=== PATIENT | male | born 1985 | race Caucasian/White ===

== ENCOUNTER 2021-07-12 10:41 | Emergency (ER) | payer OTHER, SELFPAY ==
--- NOTE | ~2021-07-12 | US_ITS ---
EXAMINATION: US SCROTUM CLINICAL INFORMATION: Scrotal/testicular pain. COMPARISON: None TECHNIQUE: A sonogram of the scrotum was performed assessing flannery-scale appearance and color Doppler flow. Spectral Doppler analysis of the arterial and venous flow were performed in the testes bilaterally. FINDINGS: RIGHT: Right testicle measures 4.0 x 2.8 x 2.6 cm, volume 14.8 mL. No focal testicular parenchymal lesions are visualized. Spectral Doppler analysis of the arterial and venous flow is normal in the right testis. Right epididymal head is not clearly visualized. No extratesticular mass. Normal epididymal appendix. There is a large loculated hydrocele right hemiscrotum measuring 3.7 x 7.3 x 7.5 cm (volume 106 mL). LEFT: Left testicle measures 4.8 x 2.6 x 3.4 cm, volume 21.6 mL. No focal testicular parenchymal lesions are visualized. Spectral Doppler analysis of the arterial and venous flow is normal in the left testis. Left epididymal head is normal in size and color flow. No left hydrocele or varicocele is seen. US/US scrotum IMPRESSION: 1. Large right loculated hydrocele, 3.7 x 7.3 x 7.5 cm. 2. No intratesticular mass. No torsion.
--- NOTE | ~2021-07-12 | US_ITS ---
EXAMINATION: US SCROTUM CLINICAL INFORMATION: Scrotal/testicular pain. COMPARISON: None TECHNIQUE: A sonogram of the scrotum was performed assessing flannery-scale appearance and color Doppler flow. Spectral Doppler analysis of the arterial and venous flow were performed in the testes bilaterally. FINDINGS: RIGHT: Right testicle measures 4.0 x 2.8 x 2.6 cm, volume 14.8 mL. No focal testicular parenchymal lesions are visualized. Spectral Doppler analysis of the arterial and venous flow is normal in the right testis. Right epididymal head is not clearly visualized. No extratesticular mass. Normal epididymal appendix. There is a large loculated hydrocele right hemiscrotum measuring 3.7 x 7.3 x 7.5 cm (volume 106 mL). LEFT: Left testicle measures 4.8 x 2.6 x 3.4 cm, volume 21.6 mL. No focal testicular parenchymal lesions are visualized. Spectral Doppler analysis of the arterial and venous flow is normal in the left testis. Left epididymal head is normal in size and color flow. No left hydrocele or varicocele is seen. US/US scrotum doppler IMPRESSION: 1. Large right loculated hydrocele, 3.7 x 7.3 x 7.5 cm. 2. No intratesticular mass. No torsion.
[2021-07-12 10:49] VITALS: BP 122/79; PULSE 83; RESP 18; TEMP 36.9; O2SAT 99; BMI 22.5
--- NOTE | 2021-07-12 12:44 | ED_ITS ---
HPI - Male Genitourinary General Chief complaint: Urogenital-Male Stated complaint: testiclur pain Time Seen by Provider: 07/12/21 11:03 Source: patient and family Mode of arrival: ambulatory Limitations: no limitations History of Present Illness HPI Narrative: 36-year-old male who had a vasectomy approximately 5 years ago who unfortunately had a complication where he developed a hematoma to his right testicle after the procedure which he has had for the past 5 years although it has been improving although in the past few months it is getting worse out of no where per the patient and it is now causing him discomfort and pain with sexual intercourse. He denies any other symptoms complaints or concerns at this time. He denies any thoughts of STDs. MD Complaint: testicle pain and testicle swelling Onset (ago): year(s) (For the past 5 years worse in the past few months) Duration: constant and progressively worsening Location: right testicle Severity: moderate Severity scale (1-10): 5 Quality: aching Relieving factors: none Exacerbating factors: sexual intercourse Context: recent surgery (Patient reports he had a vasectomy approximately 5 years ago and they explained to him that he developed a hematoma after the procedure and he reports the hematoma was improving although within the past few months it is worsening) Associated symptoms: Reports denies other symptoms Related Data Sexually active: Yes Home Medications Medication Instructions Recorded Confirmed No Known Home Meds 06/06/20 04/11/21 Allergies Allergy/AdvReac Type Severity Reaction Status Date / Time No Known Allergies Allergy Verified 04/11/21 15:52 [No Known Allergies*] Review of Systems Review of Systems: Constitutional : No Weight loss, No Fever, No Chills, No Night Sweats, No Fatigue, NoMalaise ENT/Mouth: No ear pain, No sore throat, No Difficulty swallowing Cardiovascular : No Chest Pain, No SOB, No Dyspnea on Exertion, No Orthopnea, N oEdema, No Palpitations Respiratory : No Cough, No Sputum, No Wheezing, No Dyspnea Gastrointestinal : No Nausea, No Vomiting, No Diarrhea, + abdominal Pain, No Hematochezia, No Melena Genitourinary : + testicular pain/swelling, No irregular bleeding, No Dysuria, No Urinary Frequency, No Hematuria,No Urinary Incontinence, No Urgency, No Flank Pain Musculoskeletal : No joint pain, No Myalgias, No Joint Swelling Skin : No Skin Lesions, No rash Neuro : No Weakness, No Numbness, No Paresthesias, No Loss of Consciousness, NoDizziness, No Headache Psych : No Social Issues, Heme/Lymph: No Bruising, No Bleeding,No Lymphadenopathy Endocrine : No Polyuria, No Polydipsia, No Temperature Intolerance PATIENT DENIES ANY THOUGHTS OF STDS Yes all other systems are reviewed and are negative [facility] Past Medical History Attestation statement: The following information was validated with the patient. Surgical History H/O nasal septoplasty H/O vasectomy H/O wisdom tooth extraction Family History Family History Father Lung cancer HTN (hypertension) Mother No problems noted. Social History Social History Housing: Apartment Patient Tobacco Use Status: Former Tobacco user Years Smoked: 15 years ago e-Cigarette/Vaping Use: Never Used Second Hand Smoke Exposure: No Advance Directives: No Advance Directives Information Provided: No service: Yes Current occupational status: employed Current occupation: [employer] Current occupational exposures/hazards: Yes Physical Exam Vital Signs: Vital Signs: Last Vital Signs Temp 97.4 F 07/12/21 13:07 Pulse 60 07/12/21 13:07 Resp 16 07/12/21 13:07 BP 105/63 07/12/21 13:07 Pulse Ox 100 07/12/21 13:07 BMI result Body Mass Index 22.5 vital signs have been reviewed as normal and appeared to be correct. Blood pressure normal. Heart rate normal. Respiration rate normal. Temperature normal. Oxygen saturation normal. Appearance: Alert. Oriented X3. No acute distress. Head: Normal external exam. Normocephalic. Atraumatic. Eyes: PERRLA. EOMI. Conjunctiva and sclera normal. Eyelids normal. ENT: Pharynx normal. Uvula midline. Moist mucous membranes. Neck: Normal inspection. Neck supple. FROM. No adenopathy. No meningeal signs. CVS: Normal heart rate and rhythm. Heart sound normal. No murmurs noted. Pulses normal throughout. Respiratory: No respiratory distress. Painless inspiration. Breath sounds normal. No wheezes/rales/rhonchi noted. Chest nontender. No accessory muscle usage noted or decreased air movement noted. Abdomen: Soft and nontender. Bowel sounds normal in all 4 quadrants. No distention noted. No organomegaly noted. No visible injury noted. : Chaperoned by MAKENNA Kasper. Patient noted to have tenderness with patient and soft tissue swelling/enlargement of the right testicle. The left testicle is within normal limits. The rest of the external exam is within normal limits. No additional masses/lumps/ecchymosis/edema/erythema/lacerations/lesions/vesicles/induration or tenderness noted. No hernia noted. No inguinal lymphadenopathy noted. Normal penis free of discharge. Both testicles are descended bilaterally. Although right testicle enlarged. Right testicle is also tender. Left testicle is within normal limits and no tenderness. No varicocele. Epididymides normal. No blue dot sign. Back: No CVA tenderness. Full range of motion noted. Skin: Skin warm and dry. Normal skin color. Normal skin turgor. No rashes/lesions/lacerations noted. Extremities: Extremities exhibit normal range of motion. Extremities nontender. Neuro: Oriented X 3. No motor deficit. No sensory deficit. Reflexes normal. Course Course Course Narrative: 11am - 36-year-old male who had a vasectomy approximately 5 years ago who unfortunately had a complication where he developed a hematoma to his right testicle after the procedure which he has had for the past 5 years although it has been improving although in the past few months it is getting worse out of no where per the patient and it is now causing him discomfort and pain with sexual intercourse. He denies any other symptoms complaints or concerns at this time. He denies any thoughts of STDs. Will obtain an ultrasound of testicles and re-evaluate. Reevaluation(s) Reevaluation #1: Patient noted to have large right loculated hydrocele 3 x 7 x 7.3 x 7.5 cm I consulted with Dr. Messina the urologist and he reported that the patient can follow-up with him as an outpatient no intervention indicated at this time. Patient understands agrees with this plan. Time: 13:21 [facility] - Male Genitourinary Medical Records Attestation: I reviewed the patient's medical records. Imaging Data Scrotal ultrasound: Attestation: I personally reviewed and interpreted this imaging study as follows: Radiologist's impression: [address] [address] Ultrasound Report Signed Patient: Maverick Talely MR#: [id number] : 1985 Acct:[id number] Age/Sex: 36 / M ADM Date: 07/12/21 Loc: .ED Attending Dr: Ordering Physician: Melanie Trevizo Date of Service: 07/12/21 Procedure(s): US scrotum Accession Number(s): [id number] cc: Melanie Trevizo~ EXAMINATION: US SCROTUM CLINICAL INFORMATION: Scrotal/testicular pain. COMPARISON: None TECHNIQUE: A sonogram of the scrotum was performed assessing flannery-scale appearance and color Doppler flow. Spectral Doppler analysis of the arterial and venous flow were performed in the testes bilaterally. FINDINGS: RIGHT: Right testicle measures 4.0 x 2.8 x 2.6 cm, volume 14.8 mL. No focal testicular parenchymal lesions are visualized. Spectral Doppler analysis of the arterial and venous flow is normal in the right testis. Right epididymal head is not clearly visualized. No extratesticular mass. Normal epididymal appendix. There is a large loculated hydrocele right hemiscrotum measuring 3.7 x 7.3 x 7.5 cm (volume 106 mL). LEFT: Left testicle measures 4.8 x 2.6 x 3.4 cm, volume 21.6 mL. No focal testicular parenchymal lesions are visualized. Spectral Doppler analysis of the arterial and venous flow is normal in the left testis. Left epididymal head is normal in size and color flow. No left hydrocele or varicocele is seen. US/US scrotum IMPRESSION: 1. Large right loculated hydrocele, 3.7 x 7.3 x 7.5 cm. 2. No intratesticular mass. No torsion. Dictated By: Fernando Woods MD Signed By: <Electronically s Discharge Plan Discharge Clinical Impression: Hydrocele, right Patient Disposition: Home, Self-Care Instructions: Hydrocele (ED) Additional Instructions: [address] [address] Ultrasound Report Signed Patient: Maverick Talley MR#: [id number] : 1985 Acct:[id number] Age/Sex: 36 / M ADM Date: 07/12/21 Loc: HO.ED Attending Dr: Ordering Physician: Melanie Trevizo Date of Service: 07/12/21 Procedure(s): US scrotum Accession Number(s): [id number] cc: Melanie Trevizo~ EXAMINATION: US SCROTUM CLINICAL INFORMATION: Scrotal/testicular pain. COMPARISON: None TECHNIQUE: A sonogram of the scrotum was performed assessing flannery-scale appearance and color Doppler flow. Spectral Doppler analysis of the arterial and venous flow were performed in the testes bilaterally. FINDINGS: RIGHT: Right testicle measures 4.0 x 2.8 x 2.6 cm, volume 14.8 mL. No focal testicular parenchymal lesions are visualized. Spectral Doppler analysis of the arterial and venous flow is normal in the right testis. Right epididymal head is not clearly visualized. No extratesticular mass. Normal epididymal appendix. There is a large loculated hydrocele right hemiscrotum measuring 3.7 x 7.3 x 7.5 cm (volume 106 mL). LEFT: Left testicle measures 4.8 x 2.6 x 3.4 cm, volume 21.6 mL. No focal testicular parenchymal lesions are visualized. Spectral Doppler analysis of the arterial and venous flow is normal in the left testis. Left epididymal head is normal in size and color flow. No left hydrocele or varicocele is seen. US/US scrotum IMPRESSION: 1. Large right loculated hydrocele, 3.7 x 7.3 x 7.5 cm. 2. No intratesticular mass. No torsion. Dictated By: Fernando Woods MD Signed By: <Electronically s Prescriptions: No Action No Known Home Meds RF: 0 Referrals: David Messina MD [Physician] - 2 days (Call today to make a follow-up appointment within the next 1-2 weeks) Darrell Gregorio, [employer] [Primary Care Provider] - 2 days Print Language: Sammarinese
[2021-07-12 13:07] VITALS: BP 105/63; PULSE 60; RESP 16; TEMP 36.3; O2SAT 100
== END 2021-07-12 13:46 | disposition home or self-care (01) ==
PROVIDERS: Emergency Provider Emergency Medicine; PCP Nurse Practitioner Family
DX: N43.3 Hydrocele, unspecified (principal); N50.811 Right testicular pain
CPT/HCPCS: 76870; 93975; 99284

== ENCOUNTER 2021-08-01 11:15 | Outpatient (REF) | payer OTHER, SELFPAY ==
[2021-08-01 15:02] LABS: Influenza A PCR NEGATIVE (Negative); Influenza B PCR NEGATIVE (Negative); Resp Syncy Virus RNA Qual PCR NEGATIVE (Negative); SARS COV2 PCR INHOUSE NEGATIVE (Negative)
== END 2021-08-01 11:16 | disposition home or self-care (01) ==
LOC: HO.LAB 11:15
PROVIDERS: Visit Provider Hospitalist
DX: Z20.822 Contact with and (suspected) exposure to COVID-19 (principal); J06.9 Acute upper respiratory infection, unspecified
CPT/HCPCS: 0241U

== ENCOUNTER → 2022-10-21 08:25 | Outpatient (BNVA) | payer OTHER, SELFPAY | PROVIDERS: PCP Nurse Practitioner Family; Visit Provider Nurse Practitioner Family | DX: N43.3 Hydrocele, unspecified (principal) | CPT/HCPCS: 99202 ==

== ENCOUNTER 2022-12-02 11:44 | Day surgery (SDC) | payer OTHER, SELFPAY ==
--- NOTE | 2022-11-29 10:05 | HO.ANESPROP2 ---
Documented by User: Magi Peres NP 11/29/22 10:05 HPI - Anesthesia Eval Consult details Narrative: 37yo M for Right Hydrocele Repair [facility] Active Problems Active Problems: All Active Problems (Updated 06/18/22 @ 09:40 by Darrell Gregorio, [facility]) Hydrocele (Acute) Exposure to COVID-19 virus (Acute) URI (upper respiratory infection) (Acute) Deviated nasal septum (Acute) Vasectomy evaluation (Acute) Scrotal swelling (Acute) Tender scrotum (Acute) Past Medical History Medical History (Updated 12/02/22 @ 12:19 by Nicole Ramirez) Gluten intolerance Family History Family History Father Lung cancer HTN (hypertension) Mother No problems noted. Surgical History Surgical History (Updated 12/02/22 @ 12:13 by Nicole Ramirez) H/O nasal septoplasty H/O vasectomy H/O wisdom tooth extraction History of nasal surgery History of surgery on lower extremity Social History Social History Housing: Apartment Patient Tobacco Use Status: Former Tobacco user Quit Date: 2015 Tobacco use type: Cigarette Years Smoked: 10 e-Cigarette/Vaping Use: Never Used Second Hand Smoke Exposure: No service: Yes Current occupational status: employed Current occupation: [employer] Current occupational exposures/hazards: Yes Cognitive needs: No Hearing needs: No Vision needs: No Meds Allergies Allergy/AdvReac Type Severity Reaction Status Date / Time No Known Allergies Allergy Verified 12/02/22 12:09 [No Known Allergies*] Exam Exam Date and Time: November 29, 2022 1005 Assessment and Plan Assessment Anesthesia Assessment: Chart Reviewed Documented by User: Raghu Arredondo MD 12/02/22 18:18 [facility] Past Medical History Medical History (Updated 12/02/22 @ 12:19 by Nicole Ramirez) Gluten intolerance Functional capacity: independent ambulation Family History Family History Father Lung cancer HTN (hypertension) Mother No problems noted. Family history of problems with anesthesia: No Surgical History Surgical History (Updated 12/02/22 @ 12:13 by Nicole Ramirez) H/O nasal septoplasty H/O vasectomy H/O wisdom tooth extraction History of nasal surgery History of surgery on lower extremity History of Problems with Anesthesia: No Social History Social History Housing: Apartment Patient Tobacco Use Status: Former Tobacco user Quit Date: 2015 Tobacco use type: Cigarette Years Smoked: 10 e-Cigarette/Vaping Use: Never Used Second Hand Smoke Exposure: No service: Yes Current occupational status: employed Current occupation: [employer] Current occupational exposures/hazards: Yes Cognitive needs: No Hearing needs: No Vision needs: No Meds Allergies Allergy/AdvReac Type Severity Reaction Status Date / Time No Known Allergies Allergy Verified 12/02/22 12:09 [No Known Allergies*] Exam Airway Mallampati Class: III TM Dist: >3cm Neck ROM: Full Loose/Missing/Broken Teeth: Yes (fillings ) Assessment and Plan Assessment Anesthesia Assessment: Anesthesia Plan Discussed Final Anesthetic Review Family History of Problems with Anesthesia: No History of Problems with Anesthesia: No NPO: Yes ASA Class: I Final Preanesthetic Review: Meds/Allgs Chart Reviewed, Consent Obtained/Reviewed and Anes Risks/Benef Reviewed Patient Risk: Intermediate Procedure Risk: Intermediate Anesthetic Plan Anesthetic Plan: GA Disposition: Standard PACU
[2022-12-02] VITALS (7 sets, daily range): BP systolic 110–123; BP diastolic 56–75; PULSE 58–80; RESP 14–18; TEMP 36.4–37; O2SAT 98–100; BMI 22.5
[2022-12-02] MEDS: Lactated Ringers 1,000 ML 100 ML IVCONT (12:43)
--- NOTE | 2022-12-02 13:22 | MHC.SHP ---
Pre-Procedural Eval Section A Date of Service: 12/02/22 The patient is an INPATIENT: No Changes since office visit: No Cold of Flu in the past 2 weeks, No New Medical Problems, No Changes in Medication and No Patient answered all questions The History & Physical has been completed within 30 days and I have reviewed it.: Yes Section B Chief Complaint: Hydrocele, unspecified Details of Present Illness: Large right hydrocele Relevant Social History: None Present Medications: see Short Stay Collaborative assessment Medical History: No relevant PMH History of Previous Operations: No relevant previous surgery Allergies: Allergies Allergy/AdvReac Type Severity Reaction Status Date / Time No Known Allergies Allergy Verified 12/02/22 12:09 [No Known Allergies*] Review of Systems Sugical H&P ROS: Negative: Constitution, Cardiovascular, Respiratory, Neurological, Psychiatric, Hem-Onc, Allergic/Immunologic, Gastrointestinal, Genitourinary, Musculoskeletal, Integumentary, Endocrine and Eyes/Ears/Nose/Throat Exam Surgical H&P Exam: Normal: HEENT, Normal: Heart, Normal: Lungs, Normal: Extremities, Normal: Abdomen, Normal: Skin and Normal: Neurological Plan Diagnosis/Plan: Unchanged (Right hydrocelectomy) I have reviewed the history and physical and performed a pertinent physical examination on my patient. No changes have occurred unless specified. Time Spent With Patient Time: Total time managing care of this patient today ____ minutes.
--- NOTE | 2022-12-02 14:54 | W.PM.OPN ---
Operative Note Operative Note Date of Service: 12/02/22 Narrative: PreOperative Diagnosis: right complex hydrocele Post Operative Diagnosis: right complex hydrocele Procedure: Hydrocelectomy Surgeon: Dr David Messina Anesthesia: General Indications for procedure: right hydrocele with persistent discomfort Procedure: After informed consent was verified the patient was brought to the operating room and placed in a supine position. Anesthesia was administered per protocol. Patient was appropriately shaved and genitals were prepped and draped in sterile fashion. Safety pause time-out was performed. Antibiotics being given. Local anesthetic was infiltrated under the skin in a horizontal fashion on the scrotum. Skin incision was made using a blade through the subdermal layer. The tunica around the testicle was elevated and dissected free from surrounding tissue. The avascular plane around the tunica was entered and using a wet sponge blunt dissection was performed. Any small bleeding perforators were cauterized. The tunica was thickened suggestive of recurrent inflammation. Holding sutures were placed. Tunica sac was entered. Fluid was removed. The testicle sac was inverted. Loculations were present. Excess thickened sac was dissected and removed using a Ligasure cautery instrument to minimize post procedure bleeding. Skin edges of the tunica were cauterized carefully in order to try to minimize postprocedure hematoma. Small accessory appendices were removed from the head of epididymis. The testicle with resected sac was placed back into a dependent portion of the scrotum. Due to complex nature of hydrocele a decision was made to leave a 1/4 inch Latasha rubber drain. Drain placed through dependent scrotal wall. Overlying skin fascia layer was closed with a running 3-0 Vicryl suture. Skin was closed with interrupted 4-0 chromic sutures. Drain attached to sponge with 2.0 nylon. Soft fluff sponges were placed with mesh pants as dressing. Local anesthetic was placed in inguinal cord for post procedure pain relief. Patient tolerated procedure well was extubated in operating room transferred in stable condition to the recovery area Pathology: Hydrocele sac Drains: scrotal drain
[2022-12-02] MEDS: oxyCODONE HCl Immed Release 5 MG TABLET PO (15:44)
== END 2022-12-02 16:45 | disposition home or self-care (01) ==
PROVIDERS: PCP Nurse Practitioner Family; Visit Provider Urology
PROC: (CPT 55060; principal; 2022-12-02 13:40)
DX: N43.2 Other hydrocele (principal); Z98.52 Vasectomy status; Z87.891 Personal history of nicotine dependence
CPT/HCPCS: 55040; 88302; J0131; J0690; J1100; J2250; J2405; J2795; J3010

== ENCOUNTER 2023-03-26 08:41 | Outpatient (AMB) | payer OTHER, SELFPAY ==
[2023-03-26 09:06] VITALS: BP 110/58; PULSE 69; O2SAT 99; BMI 22.6
--- NOTE | 2023-03-26 09:06 | AM.OFFWIN_ITS ---
Intake Vital Signs 03/26/23 09:06 Height 6 ft 4 in Weight 185 lb 6 oz BMI 22.6 BP 110/58 L Blood Pressure Location Rt brachial Position Sitting Pulse 69 Pulse Source Pulse Oximeter Pulse Oximetry (%) 99 Oxygen Delivery Method Room Air Intake Visit Reasons: L knee pain Intake Note: Patient is here with left knee pain, from old injury 10 years ago, comes and goes, and left knee gave out on Friday after squatting, now consistantly painful. Patient Tobacco Use Status: Former Tobacco user Quit Date: 2015 Allergies gluten Adverse Reaction (Mild, Verified 03/26/23 09:10) Diarrhea Do you need a note to return to daycare/school/sports/work: No HPI L knee pain HPI Details 38 y/o male presents with complaints of L knee pain. He reports L knee gives out periodically but felt increased pain Friday while golfing after squatting. He reports he first felt pain about 10 years ago. He is able to bear weight okay but states that at certain angles L knee hurts. He reports he limps while he ambulates. [facility] Medical History (Updated 03/26/23 @ 10:29 by Jose Ramon Cardenas) Gluten intolerance Surgical History (Updated 12/02/22 @ 12:13 by Nicole Ramirez) H/O nasal septoplasty H/O vasectomy H/O wisdom tooth extraction History of nasal surgery History of surgery on lower extremity Family History Father Lung cancer HTN (hypertension) Mother No problems noted. Social History Housing: Apartment Patient Tobacco Use Status: Former Tobacco user Quit Date: 2015 Tobacco use type: Cigarette Years Smoked: 10 e-Cigarette/Vaping Use: Never Used Second Hand Smoke Exposure: No service: Yes Current occupational status: employed Current occupation: [employer] Current occupational exposures/hazards: Yes Cognitive needs: No Hearing needs: No Vision needs: No Review of Systems Const Denies chills, Denies fatigue, Denies fever(s), Denies headache(s) and Denies weakness ENT Denies dizziness and Denies headache(s) Card Denies dyspnea Resp Denies cough, Denies dyspnea, Denies wheezing and Denies other (shortness of breath) Musc Details: L knee pain Denies numbness and Denies tingling Neuro Denies dizziness, Denies headache(s), Denies numbness, Denies tingling and Denies weakness Psych Denies anxiety and Denies depression Endo Denies fatigue Aller/Immun Denies wheezing Physical Exam Vital Signs: Last Vital Signs Pulse 69 03/26/23 09:06 BP 110/58 L 03/26/23 09:06 Pulse Ox 99 03/26/23 09:06 Oxygen Delivery Method Room Air 03/26/23 09:06 BMI result Body Mass Index 22.6 Const General: well developed; No acute distress Nutritional Appearance: well nourished Orientation/consciousness: patient oriented x3 HEENT Head: Yes normocephalic and Yes atraumatic Eyes General: appearance normal, both eyes and all related structures Pupils: Equal, round and reactive pupils present EOM: EOMs intact bilaterally Resp Effort & Inspection: normal respiratory effort Neuro General: patient oriented x3 and gait normal Cranial nerves: Yes Equal, round and reactive pupils present Extrem Other: Positive L patellar grind test Psych Affect: normal affect Assessment & Plan Assessment & Plan (1) Left knee pain: Code(s): M25.562 - Pain in left knee Plan: Peripatellar and patellar tendon tenderness and mild effusion with decreased flexion and ?giving out? at times. No erythema or excess warmth Likely acute on chronic patellar tendon strain and partial tear. Will check x-ray Start physical therapy and he can use meloxicam and ice and elevation He can use a knee brace for stability Referred to ortho for definitive care. Orders: Orders XR knee LT 3V Today M25.562 - Pain in left knee PT Evaluation and Treatment Today M25.562 - Pain in left knee Referrals Orthopedics Referral M25.562 - Pain in left knee Medications: New meloxicam 15 mg PO DAILY 30 days 30 tabs 2RF Coding Level of Care Code Est Pt Level 3 (94883) Diagnoses Left knee pain M25.562
== END 2023-03-26 10:48 | disposition home or self-care (01) ==
PROVIDERS: PCP Nurse Practitioner Family; Visit Provider Family Medicine
DX: M25.562 Pain in left knee (principal)
CPT/HCPCS: 99213

== ENCOUNTER 2023-03-26 14:19 | Outpatient (REF) | payer OTHER, SELFPAY ==
--- NOTE | ~2023-03-26 | XR_ITS ---
EXAMINATION: XR KNEE, LEFT CLINICAL INFORMATION: Pain COMPARISON: None available. TECHNIQUE: Three views of the left knee. FINDINGS: No acute visible fracture or dislocation. Joint spaces and alignment are maintained. No large knee joint effusion. Soft tissues are unremarkable. XR/XR knee LT 3V IMPRESSION: No acute visible fracture or dislocation.
== END 2023-03-26 14:20 | disposition home or self-care (01) ==
LOC: HO.XRAY 14:19
PROVIDERS: PCP Family Medicine; Visit Provider Family Medicine
DX: M25.562 Pain in left knee (principal)
CPT/HCPCS: 73562

== ENCOUNTER 2023-04-08 12:41 | Outpatient (AMB) | payer OTHER, SELFPAY ==
[2023-04-08 12:48] VITALS: BMI 22.5
--- NOTE | 2023-04-08 12:48 | MHC.OFFVIS ---
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 The patient states that he 1st injured his left knee approximately 10 years ago when he jumped several feet off of the back of a plane while working at [employer]. Since that time his symptoms have gotten progressively worse in spite of continued non operative treatments. Most of the pain is along the medial aspect of his knee. He has had injections in the past which gave him minimal relief. He has also done physical therapy which aggravated his symptoms. He states that his left knee will give out several times per day. Patient recently had difficulty playing golf because of his pain and instability. Allergies gluten Adverse Reaction (Mild, Verified 04/08/23 13:05) Diarrhea [facility] Medical History (Updated 04/08/23 @ 13:27 by Arnulfo Navarrete MD) Gluten intolerance Surgical History (Updated 12/02/22 @ 12:13 by Nicole Ramirez) History of surgery on lower extremity History of nasal surgery H/O vasectomy H/O nasal septoplasty H/O wisdom tooth extraction Family History Father Lung cancer HTN (hypertension) Mother No problems noted. Social History Housing: Apartment Patient Tobacco Use Status: Former Tobacco user Quit Date: 2015 Tobacco use type: Cigarette Years Smoked: 10 e-Cigarette/Vaping Use: Never Used Second Hand Smoke Exposure: No service: Yes Current occupational status: employed Current occupation: [employer] Current occupational exposures/hazards: Yes Cognitive needs: No Hearing needs: No Vision needs: No Physical Exam Vital Signs: BMI result Body Mass Index 22.5 Const Other: Well-nourished well-developed very friendly male awake alert and oriented x3 in no acute distress Extrem Other: Bilateral lower extremity examination shows good capillary refill, no skin lesions noted, normal sensation light touch Left knee examination shows a minimal effusion, minimal crepitus with range of motion, tenderness along his medial joint line, positive Kimber's test, no instability Results Reviewed Results Reviewed: X-rays of the patient's left knee show minimal diffuse joint space narrowing, no acute bony abnormalities Assessment & Plan Assessment & Plan (1) Tear of medial meniscus of left knee: Code(s): S83.242A - Other tear of medial meniscus, current injury, left knee, initial encounter Plan: Mr. Talley presents with progressively worsening left knee pain and mechanical symptoms most likely due retear of his medial meniscus. Thus, I will send him for an MRI for further evaluation. If he does have a significant tear I will recommend arthroscopic surgery to optimize his future functional level. He will follow up with me following the MRI to discuss the findings and treatment options. Feel free to call me at any time should questions regarding his orthopedic management arise. Thank you very much for asking me to see this very friendly gentleman. I spent 22 minutes in reviewing the patient's records and imaging studies, seeing the patient and documenting in the medical record. Orders: Orders MR knee LT wo con Today S83.242A - Other tear of medial meniscus, current injury, left knee, initial encounter Coding Level of Care Code New Pt Level 2 (10865) Diagnoses Tear of medial meniscus of left knee S83.242A
== END 2023-04-08 13:31 | disposition home or self-care (01) ==
PROVIDERS: PCP Family Medicine; Visit Provider Orthopaedic Surgery
DX: S83.242A Other tear of medial meniscus, current injury, left knee, initial encounter (principal)
CPT/HCPCS: 99202

== ENCOUNTER → 2023-04-08 12:41 | Outpatient (BNVA) | payer OTHER, SELFPAY | PROVIDERS: PCP Family Medicine; Visit Provider Orthopaedic Surgery | DX: S83.242A Other tear of medial meniscus, current injury, left knee, initial encounter (principal) | CPT/HCPCS: 99202 ==

== ENCOUNTER 2023-04-29 08:17 | Outpatient (AMB) | payer OTHER, SELFPAY ==
--- NOTE | 2023-04-29 08:20 | MHC.OFFVIS ---
Intake Vital Signs 04/29/23 08:22 Height 6 ft 4 in Weight 185 lb BMI 22.5 Intake Visit Reasons: ov- left knee MRI review Intake Note: Maverick a 38 year old male who presents today as a new patient for an evaluation of left knee pain and giving way. The patient states that he 1st injured his left knee approximately 10 years ago when he jumped several feet off of the back of a plane while working at [employer]. Since that time his symptoms have gotten progressively worse in spite of continued non operative treatments. Most of the pain is along the medial aspect of his knee. He has had injections in the past which gave him minimal relief. He has also done physical therapy which aggravated his symptoms. He states that his left knee will give out several times per day. Patient recently had difficulty playing golf because of his pain and instability. Allergies gluten Adverse Reaction (Mild, Verified 04/29/23 08:22) Diarrhea Medication List - Last Reconciled 04/29/23 by Arnulfo Navarrete MD No Known Home Meds [facility] Medical History (Updated 04/08/23 @ 13:27 by Arnulfo Navarrete MD) Gluten intolerance Surgical History History of surgery on lower extremity History of nasal surgery H/O vasectomy H/O nasal septoplasty H/O wisdom tooth extraction Family History Father Lung cancer HTN (hypertension) Mother No problems noted. Social History Housing: Apartment Patient Tobacco Use Status: Former Tobacco user Quit Date: 2015 Tobacco use type: Cigarette Years Smoked: 10 e-Cigarette/Vaping Use: Never Used Second Hand Smoke Exposure: No service: Yes Current occupational status: employed Current occupation: [employer] Current occupational exposures/hazards: Yes Cognitive needs: No Hearing needs: No Vision needs: No Physical Exam Vital Signs: BMI result Body Mass Index 22.5 Const Other: Well-nourished well-developed very friendly male awake alert and oriented x3 in no acute distress For for Extrem Other: Bilateral lower extremity examination shows good capillary refill, no skin lesions noted, normal sensation light touch Left knee examination shows a minimal effusion, minimal crepitus with range of motion, tenderness along his medial joint line, positive Kimber's test Results Reviewed Results Reviewed: MRI of the patient's left knee shows minimal diffuse degenerative changes, possible tearing of the posterior horn of the medial meniscus, multiple bands of thickened plica Assessment & Plan Assessment & Plan (1) Tear of medial meniscus of left knee: Code(s): S83.242A - Other tear of medial meniscus, current injury, left knee, initial encounter Plan: Mr. 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 I had a lengthy discussion with the patient regarding the treatment options. At this point he has failed continued non operative treatments. The risks and benefits of left knee arthroscopic surgery were discussed at length with the patient. The patient wishes to proceed. Surgery will most likely involve left knee diagnostic arthroscopy with arthroscopic plica excision and possible partial medial meniscectomy. The patient does understand that he may not get 100% relief of his symptoms following the procedure. I will have my office contact the patient to pick a surgery date. He will follow-up as instructed. Feel free to call me at any time should questions regarding his orthopedic management arise. I spent 22 minutes in reviewing the patient's records and imaging studies, seeing the patient and documenting in the medical record. Coding Level of Care Code Est Pt Level 2 (45611) Diagnoses Tear of medial meniscus of left knee S83.242A
[2023-04-29 08:22] VITALS: BMI 22.5
== END 2023-04-29 08:51 | disposition home or self-care (01) ==
PROVIDERS: PCP Family Medicine; Visit Provider Orthopaedic Surgery
DX: S83.242A Other tear of medial meniscus, current injury, left knee, initial encounter (principal)
CPT/HCPCS: 99214

== ENCOUNTER → 2023-04-29 08:17 | Outpatient (BNVA) | payer OTHER, SELFPAY | PROVIDERS: PCP Family Medicine; Visit Provider Orthopaedic Surgery | DX: S83.242A Other tear of medial meniscus, current injury, left knee, initial encounter (principal) | CPT/HCPCS: 99212 ==

== ENCOUNTER 2023-06-06 06:49 | Day surgery (SDC) | payer OTHER, SELFPAY ==
--- NOTE | 2023-06-05 08:47 | HO.ANESPROP2 ---
Documented by User: Magi Peres NP 06/05/23 08:48 HPI - Anesthesia Eval Consult details Narrative: 38yo M for Left Knee Arthroscopy partial meniscectomy,poss lateral meniscectomy s/p hydrocele 11/2022 with GA-LMA 5 PMFSH Active Problems Active Problems: All Active Problems (Updated 04/08/23 @ 13:27 by Arnulfo Navarrete MD) Tear of medial meniscus of left knee (Acute) Left knee pain (Acute) Hydrocele (Acute) Exposure to COVID-19 virus (Acute) URI (upper respiratory infection) (Acute) Tender scrotum (Acute) Scrotal swelling (Acute) Vasectomy evaluation (Acute) Deviated nasal septum (Acute) Past Medical History Medical History (Updated 04/08/23 @ 13:27 by Arnulfo Navarrete MD) Gluten intolerance Family History Family History Father Lung cancer HTN (hypertension) Mother No problems noted. Family history of problems with anesthesia: No Surgical History Surgical History (Updated 06/04/23 @ 10:29 by Angeles Avila RN) History of testicular surgery History of surgery on lower extremity History of nasal surgery H/O vasectomy H/O nasal septoplasty H/O wisdom tooth extraction History of Problems with Anesthesia: No Social History Social History Housing: Apartment Patient Tobacco Use Status: Former Tobacco user Quit Date: 2015 Tobacco use type: Cigarette Years Smoked: 10 e-Cigarette/Vaping Use: Never Used Second Hand Smoke Exposure: No Use of substances other than those prescribed or required for medical reasons: No Are you DNR?: No Advance Directives: No Advance Directives Information Provided: Yes Advance Directives on File: No service: Yes Current occupational status: employed Current occupation: [employer] Current occupational exposures/hazards: Yes Cognitive needs: No Hearing needs: No Vision needs: No Meds Allergies Allergy/AdvReac Type Severity Reaction Status Date / Time gluten AdvReac Mild Diarrhea Verified 04/29/23 08:22 Active Medications: Current Medications Cefazolin Sodium/Dextrose (Ancef) 2 gm in 50 mls @ 100 mls/hr IV PREOP ONE Stop: 06/06/23 02:29 Exam Exam Date and Time: June 05, 2023 0847 Assessment and Plan Assessment Anesthesia Assessment: Chart Reviewed Final Anesthetic Review Family History of Problems with Anesthesia: No History of Problems with Anesthesia: No Documented by User: Collin Dill MD 06/06/23 09:32 [facility] Past Medical History Medical History (Updated 04/08/23 @ 13:27 by Arnulfo Navarrete MD) Gluten intolerance Family History Family History Father Lung cancer HTN (hypertension) Mother No problems noted. Surgical History Surgical History (Updated 06/04/23 @ 10:29 by Angeles Avila RN) History of testicular surgery History of surgery on lower extremity History of nasal surgery H/O vasectomy H/O nasal septoplasty H/O wisdom tooth extraction Social History Social History Housing: Apartment Patient Tobacco Use Status: Former Tobacco user Quit Date: 2015 Tobacco use type: Cigarette Years Smoked: 10 e-Cigarette/Vaping Use: Never Used Second Hand Smoke Exposure: No Use of substances other than those prescribed or required for medical reasons: No Are you DNR?: No Advance Directives: No Advance Directives Information Provided: Yes Advance Directives on File: No service: Yes Current occupational status: employed Current occupation: [employer] Current occupational exposures/hazards: Yes Cognitive needs: No Hearing needs: No Vision needs: No Meds Allergies Allergy/AdvReac Type Severity Reaction Status Date / Time gluten AdvReac Mild Diarrhea Verified 04/29/23 08:22 Exam Airway Mallampati Class: II TM Dist: >3cm Heart: rrr Lungs: cta Assessment and Plan Assessment Anesthesia Assessment: Anesthesia Plan Discussed Final Anesthetic Review NPO: Yes ASA Class: I Final Preanesthetic Review: No Changes in Pt Med Stat, Meds/Allgs Chart Reviewed, Consent Obtained/Reviewed and Anes Risks/Benef Reviewed Patient Risk: Low Procedure Risk: Low Anesthetic Plan Anesthetic Plan: GA and Agree w/ Assess. and Plan Disposition: Standard PACU
[2023-06-06] VITALS (9 sets, daily range): BP systolic 123–133; BP diastolic 62–78; PULSE 55–74; RESP 14–18; TEMP 36–36.5; O2SAT 99–100; BMI 22.5
[2023-06-06] MEDS: Lactated Ringers 1,000 ML 100 ML IVCONT (07:54)
--- NOTE | 2023-06-06 10:50 | P.OP_ITS ---
Operative Note Operative Note Date of Service: 06/06/23 Narrative: After the patient was identified as Maverick Talley and his left knee was initialed by myself they were brought to the operating room where general anesthesia was induced by the anesthesiologist in routine fashion. The patient was given 2 g of IV Ancef preoperatively for infection prophylaxis. The patient's left lower extremity was prepped and draped in sterile fashion. A formal time-out was completed. Marcaine was injected into the planned incision sites as well as the patient's left knee joint. A #11 scalpel blade was used to make an anterolateral portal 1 cm proximal to the joint line and 1 cm lateral to the p atellar tendon. Blunt trocar technique was used to enter the suprapatellar pouch with the knee in extension. Diagnostic arthroscopy showed multiple bands of thickened plica which would be excised at the end of the procedure. There were no loose bodies or abnormalities found in either the medial or lateral gutters. The articular surface of the patella and the articular surface of the trochlear groove both showed no degenerative changes. The patient's knee was flexed to 45 degrees and a valgus force was placed upon it. The medial compartment was entered. An anteromedial portal was made 1 cm proximal to the joint line and 1 cm medial to the patellar tendon. Probing of the medial meniscus showed a small radial tear of the anterior horn. A partial medial meniscectomy was performed using the arthroscopic shaver. Following the partial meniscectomy the remainder of the meniscus tissue was stable. There were no degenerative changes of either the medial femoral condyle or medial tibial plateau articular surfaces. The patient's knee was placed into a neutral position. There was no injury to the anterior cruciate ligament. The patient's knee was then placed in the figure of 4 position and the lateral compartment was entered. There was no evidence of lateral meniscus tearing. There were no degenerative changes of the lateral femoral condyle and lateral tibial plateau. The patient's knee was once again brought into extension and the suprapatellar pouch was entered. The arthroscopic shaver and the ArthroCare Wand were used to excise the thickened bands of plica. The knee joint was irrigated and then drained. All arthroscopic instruments were removed. The 2 portals were closed with 3-0 nylon interrupted suture. The knee joint was injected with Marcaine. Dry sterile dressing and Mark bandages were placed over the patient's knee. The patient was awoken and extubated in the operating room. The patient was transferred to the recovery room in stable condition.
--- NOTE | 2023-06-06 10:50 | PM.OP ---
Brief Operative Note Date of Service: 06/06/23 Pre-op diagnosis: Left knee medial meniscus tear Post-op diagnosis: same Procedure: Left knee diagnostic arthroscopy with arthroscopic partial medial meniscectomy Surgeon: Arnulfo Navarrete MD Anesthesia: GLMA Was an Customer Experience Analyst used for this Procedure?: No Estimated blood loss (mL): 10 Pathology: none sent Condition: stable Disposition: PACU
[2023-06-06] MEDS: fentaNYL citrate/PF 100 MCG/2 ML VIAL 25 MCG IVPUSH ×2 (10:58→11:09)
[2023-06-06] MEDS: oxyCODONE HCl Immed Release 5 MG TABLET PO (11:06)
== END 2023-06-06 12:00 | disposition home or self-care (01) ==
PROVIDERS: PCP Family Medicine; Visit Provider Orthopaedic Surgery
PROC: (CPT 29870; principal; 2023-06-06 08:40)
DX: S83.242A Other tear of medial meniscus, current injury, left knee, initial encounter (principal); M23.52 Chronic instability of knee, left knee; M67.52 Plica syndrome, left knee; W17.89XA Other fall from one level to another, initial encounter; Y93.89 Activity, other specified; Y92.813 Airplane as the place of occurrence of the external cause; Y99.8 Other external cause status; K90.41 Non-celiac gluten sensitivity; Z98.890 Other specified postprocedural states; Z87.891 Personal history of nicotine dependence
CPT/HCPCS: 29881; J0131; J0171; J0690; J1100; J1170; J2405; J2704; J2795; J3010

== ENCOUNTER → 2023-06-06 06:49 | Outpatient (BNV) | payer OTHER, SELFPAY | PROVIDERS: PCP Family Medicine; Visit Provider Orthopaedic Surgery | DX: S83.231A Complex tear of medial meniscus, current injury, right knee, initial encounter (principal); M17.11 Unilateral primary osteoarthritis, right knee; M67.51 Plica syndrome, right knee | CPT/HCPCS: 29881 ==

== ENCOUNTER 2023-06-18 08:51 | Outpatient (AMB) | payer OTHER, SELFPAY ==
--- NOTE | 2023-06-18 08:53 | A.OFFVIS_ITS ---
Intake Intake Visit Reasons: PO-Lt Knee 06/06 Intake Note: Maverick a 38 year old male presents today for a post operative left knee , 06/06/23 . Patient reports he is doing very well, states very mild tenderness. Allergies gluten Adverse Reaction (Mild, Verified 06/18/23 08:56) Diarrhea Medication List - Last Reviewed 06/18/23 by HAMLET Beal No Known Home Meds HPI PO-Lt Knee 06/06 HPI Details 38-year-old male who [facility] left knee , 06/06/[address] Navarrete. He states he has minimal tenderness in his knee but is doing well overall. He denies any pain with extending his knee. [facility] Medical History (Updated 04/08/23 @ 13:27 by Arnulfo Navarrete MD) Gluten intolerance Surgical History History of testicular surgery History of surgery on lower extremity History of nasal surgery H/O vasectomy H/O nasal septoplasty H/O wisdom tooth extraction Family History Father Lung cancer HTN (hypertension) Mother No problems noted. Housing: Apartment Patient Tobacco Use Status: Former Tobacco user Quit Date: 2015 Tobacco use type: Cigarette Years Smoked: 10 e-Cigarette/Vaping Use: Never Used Second Hand Smoke Exposure: No service: Yes Current occupational status: employed Current occupation: [employer] Current occupational exposures/hazards: Yes Cognitive needs: No Hearing needs: No Vision needs: No Review of Systems Const All systems reviewed & are unremarkable except as noted in HPI and below Physical Exam Extrem Other: Left knee: Incision clean, dry and intact. No erythema or joint effusion. ROM is 0-110 degrees. Calf supple, nontender. NVI. Results Reviewed Results Reviewed: Date of Service: 06/06/23 Pre-op diagnosis: Left knee medial meniscus tear Post-op diagnosis: same Procedure: Left knee diagnostic arthroscopy with arthroscopic partial medial meniscectomy Surgeon: Arnulfo Navarrete MD Assessment & Plan Assessment & Plan (1) Left knee pain: Code(s): M25.562 - Pain in left knee Plan Sutures removed today, steri strips applied. We did review his operative findings. I encouraged him to work on ROM and quad strengthening exercises along with hamstring and glute/core strengthening. He will increase activity as to lerated and see us back in [address] Navarrete, sooner if needed. Patient Instructions: Scribed for Radha Hurtado PA-C, by [facility], on 06/18/2023 at 9:00 AM EST. I, Radha Hurtado PA-C, have personally reviewed and agree with the information entered by the scribe. Coding Level of Care Code Global (99995) Diagnoses Left knee pain M25.562
== END 2023-06-18 09:18 | disposition home or self-care (01) ==
PROVIDERS: PCP Family Medicine; Visit Provider Physician Assistant
DX: M25.562 Pain in left knee (principal)
CPT/HCPCS: 99024

== ENCOUNTER → 2023-06-18 08:51 | Outpatient (BNVA) | payer OTHER, SELFPAY | PROVIDERS: PCP Family Medicine; Visit Provider Physician Assistant ==

== ENCOUNTER 2023-09-24 13:35 | Outpatient (AMB) | payer OTHER, SELFPAY ==
--- NOTE | 2023-09-24 13:36 | MHC.OFFVIS ---
Intake Intake Visit Reasons: PO Left knee 06/06/23 Intake Note: Maverick a 38 year old male presents today for a post operative appointment s/p left knee , 06/06/23 . The patient reports mild intermittent discomfort in his left knee. He states that approximately 2 weeks ago he was running a short distance against his 13-year-old son when he had increased pain. He had to stop running at that time because of the discomfort. The patient states that he must take a physical fitness test for the . He must be able to run 1.5 miles an approximately 12 minutes to pass the test. Allergies gluten Adverse Reaction (Mild, Verified 09/24/23 13:45) Diarrhea Medication List - Last Reconciled 09/24/23 by Arnulfo Navarrete MD No Known Home Meds [facility] Medical History Gluten intolerance Surgical History History of testicular surgery History of surgery on lower extremity History of nasal surgery H/O vasectomy H/O nasal septoplasty H/O wisdom tooth extraction Family History Father Lung cancer HTN (hypertension) Mother No problems noted. Social History Housing: Apartment Comment: stinging Patient Tobacco Use Status: Former Tobacco user Quit Date: 2015 Tobacco use type: Cigarette Years Smoked: 10 e-Cigarette/Vaping Use: Never Used Second Hand Smoke Exposure: No service: Yes Current occupational status: employed Current occupation: [employer] Current occupational exposures/hazards: Yes Cognitive needs: No Hearing needs: No Vision needs: No Physical Exam Const Other: Well-nourished well-developed very friendly male awake alert and oriented x3 in no acute distress Extrem Other: Bilateral lower extremity examination shows good capillary refill, no skin lesions noted, normal sensation light touch Left knee examination shows that the surgical incisions are well healed, no erythema, no effusion, no crepitus with range of motion Assessment & Plan Assessment & Plan (1) Left knee pain: Code(s): M25.562 - Pain in left knee Plan Mr. Talley continues to do fairly well after undergoing left knee arthroscopic surgery on 06/06/2023. He does have continued discomfort when attempting to run. Thus, we will delay his running fitness test for now. I will see him back in 2 months' time for repeat clinical examination. Will continue riding his stationary bike for exercise in the meantime. I will clear him to take his fitness test once his symptoms have improved. Feel free to call me at any time should questions regarding his orthopedic management arise. I spent 19 minutes in reviewing the patient's records and imaging studies, seeing the patient and documenting in the medical record. Coding Level of Care Code Est Pt Level 2 (69520) Diagnoses Left knee pain M25.562
== END 2023-09-24 14:03 | disposition home or self-care (01) ==
PROVIDERS: PCP Family Medicine; Visit Provider Orthopaedic Surgery
DX: M25.562 Pain in left knee (principal)
CPT/HCPCS: 99212

== ENCOUNTER → 2023-09-24 13:35 | Outpatient (BNVA) | payer OTHER, SELFPAY | PROVIDERS: PCP Family Medicine; Visit Provider Orthopaedic Surgery | DX: M25.562 Pain in left knee (principal) | CPT/HCPCS: 99212 ==

== ENCOUNTER 2024-07-14 09:45 | Outpatient (AMB) | payer OTHER, SELFPAY ==
--- NOTE | 2024-07-14 07:39 | MHC.OFFVIS ---
Intake Visit Reasons: Regular visit Allergies gluten Adverse Reaction (Mild, Verified 09/24/23 13:45) Diarrhea HPI HPI Regular visit: Details: History of Present Illness The patient is a 39-year-old male presenting with gastrointestinal symptoms, specifically significant bloating after meals and chronic diarrhea. The patient has a history of Irritable Bowel Syndrome (IBS), diagnosed many years ago and managed with a gluten-free diet initiated approximately six years ago, which initially alleviated most symptoms. However, in the past two to three years, the patient has experienced a gradual recurrence of symptoms, predominantly postprandial bloating, without a direct correlation to specific food intake. The patient reports stool consistency on a scale of 0 to 10, with most bowel movements being between a 1 and 3, indicating primarily liquid consistency. Additionally, the patient denies constipation and states there is no blood in stools. Previous colonoscopy conducted approximately ten years ago ruled out Crohn's disease and ulcerative colitis. The patient's symptoms present a significant nuisance and are now intolerable. He has not used probiotics previously and remains adherent to a gluten-free diet. Review of Systems - Gastrointestinal: Reports bloating primarily postprandial; denies blood in stool. Reports chronic diarrhea, stool consistency ranging from 1 to 3. Denies constipation. Plan - Recommend initiation of a probiotic regimen. The patient advised to consult with a pharmacist for an appropriate selection. - Consider fiber supplementation, such as Citrucel, to potentially improve stool consistency by bulking stools. Monitor for any adverse effects since fiber may worsen symptoms in some cases. - Follow-up via the patient portal in 3-4 weeks to assess symptom improvement or persistence. - If symptoms do not improve, a referral to a independent agent music education will be considered. Patient was informed and verbally consented to the use of an ambient scribe for clinic note documentation during this visit. Discussion Notes During the visit, I discussed with the patient the potential efficacy of introducing probiotics as the first-line intervention to alleviate his gastrointestinal symptoms, particularly the bloating and chronic diarrhea. I emphasized the benefits probiotics may offer by introducing beneficial gut shanon. Additionally, I mentioned the alternative of fiber supplementation to help bulk the stools but cautioned that fiber can sometimes exacerbate symptoms. We agreed on a three to four-week trial of probiotics, following which the patient should provide feedback through the patient portal regarding any changes in symptoms. If there is no improvement, we will consider a gastroenterology referral to further explore underlying conditions or additional interventions. Patient Instructions - Begin a probiotic regimen; consult with a pharmacist for recommendations. - Consider trying Citrucel to add dietary fiber and note any changes in bowel consistency or symptoms. - Report any changes in symptoms after three weeks via the patient portal. - Continue adhering to a gluten-free diet. - Seek immediate care if symptoms worsen or new concerning symptoms develop. [facility] Medical History Gluten intolerance Surgical History History of testicular surgery History of surgery on lower extremity History of nasal surgery H/O vasectomy H/O nasal septoplasty H/O wisdom tooth extraction Family History Father Lung cancer HTN (hypertension) Mother No problems noted. Social History Housing: Apartment Comment: stinging Patient Tobacco Use Status: Former Tobacco user Tobacco use type: Cigarette Years Smoked: 10 e-Cigarette/Vaping Use: Never Used Second Hand Smoke Exposure: No service: Yes Current occupational status: employed Current occupation: [employer] Current occupational exposures/hazards: Yes Cognitive needs: No Hearing needs: No Vision needs: No Telehealth Telehealth Telehealth Platform: [facility] Location of provider rendering services: practice address Location of patient: address on file Patient Identification confirmed using: Name, : Yes Telehealth method: video Patient verbally consented to treatment: Yes Patient verbally consented to billing insurance company: Yes Patient informed of any privacy concerns related to visit: Yes Minutes spent on Phone/Video with Pt.: 10 Assessment & Plan Assessment & Plan (1) Irritable bowel syndrome with diarrhea: Code(s): K58.0 - Irritable bowel syndrome with diarrhea Category: Medical (2) Bloating: Code(s): R14.0 - Abdominal distension (gaseous) Category: Medical Plan . Coding Level of Care Code Tele Est Pt Level 3 (69640) Diagnoses Irritable bowel syndrome with diarrhea K58.0 Bloating R14.0
--- OUTSIDE RECORDS SUMMARY | 2024-07-14 09:48 | XMS_ITS | Continuity of Care Document ---
Author Name [facility] Organization [facility] Care Team Providers Care Care Clinician Name Role Phone [facility] Unavailable Unavailable Problems Combined list of problems from Department of Defense and Veterans Affairs facilities. It does not include entries that were removed or entered in error. Problem Status Onset Date Problem Type Date of Resolution Comments Source conjunctivitis Inactive Condition [facility] sore throat Inactive Condition [facility] Patient Education - Medication Active Condition DoD irritable bowel syndrome Active Condition DoD muscle aches, generalized (myalgia) Active Condition DoD Outpatient Physician Consultation Active Condition DoD influenza Inactive Condition DoD upper respiratory infection Inactive Condition [facility] pruritus ani Inactive Condition DoD current smoker Active Condition DoD abdominal pain Active Condition DoD conjunctivitis acute bacterial Inactive Condition DoD patient activity at time of event - volleyball Active Condition DoD joint pain in the toes Inactive Condition DoD nicotine dependence Active Condition Do D Patient Education Active Condition DoD visit for: administrative purpose Inactive Condition [facility] pectus excavatum Active Condition DoD nausea with vomiting Inactive Condition [facility] nicotine dependence continuous Active Condition DoD generalized pain Active Condition [facility] sore throat Inactive Condition DoD gastroenteritis Active Condition [facility] Patient Counseling: Inactive Condition D oD visit for: services physical Active Condition DoD Allergies, Adverse Reactions, Alerts Combined list of allergies from Department of Defense and Veterans Affairs facilities. It does not include entries that were removed or entered in error. Substance Category Reaction Severity Reaction type Status Date Reported Comments Source No Known Allergies Drug allergy (disorder) active 02/21/2009 [facility] Immunizations Combined list of available immunizations from the Department of Defense and Veterans Affairs facilities. Immunization Series Date Given Administered By Site Reaction Lot Number CVX Code Drug Train Station Agent Status Comments Source influenza virus vaccine, inactivated 2023 LAILA Haley tea, right (delt oid) [id number] [employer] complet ed influenza virus vaccine, inactivat ed 07/06/24 Given [id number] MDG influenza, injectable, quadrivalent 2020 [id number] 158 GlaxoSmithKli ne complet ed influenza , injectabl e, quadrival ent 06/03/21 Given Ambulat ory Pharmac y influenza, injectable, quadrivalent, contains preservative 8 2020 [id number] 158 [facility] (SKB) complet ed influenza , injectabl e, quadrival ent, contains preservat maria DoD COVID Vaccine Moderna 2020 [id number] complet ed COVID Vaccine Moderna 11/09/20 Given Ambulat ory Pharmac y SARS-COV-2 (COVID-19) vaccine, mRNA, spike protein, LNP, preservative free, 100 mcg or 50 mcg dose 2 2020 [id number] 207 Moderna OY [employer] (MOD) complet ed SARS-COV- 2 (COVID-19 ) vaccine, mRNA, spike protein, LNP, preservat maria free, 100 mcg or 50 mcg dose DoD COVID Vaccine Moderna 2020 [id number] complet ed COVID Vaccine Moderna 10/07/20 Given Ambulat ory Pharmac y SARS-COV-2 (COVID-19) vaccine, mRNA, spike protein, LNP, preservative free, 100 mcg or 50 mcg dose 1 2020 [id number] 207 Moderna OY [employer] (MOD) complet ed SARS-COV- 2 (COVID-19 ) vaccine, mRNA, spike protein, LNP, preservat maria free, 100 mcg or 50 mcg dose DoD influenza, injectable, quadrivalent- pf 2019 [id number] 077 150 Seqirus complet ed influenza , injectabl e, quadrival ent-pf 06/11/20 Given Ambulat ory Pharmac y Influenza, injectable, quadrivalent, preservative free 1 2019 [id number] 077 150 Seqirus (SEQ) complet ed Influenza , injectabl e, quadrival ent, preservat maria free DoD influenza, injectable, quadrivalent- pf 2018 [id number] 150 Se[employer]irus complet ed influenza , injectabl e, quadrival ent-pf 05/02/19 Given Ambulat ory Pharmac y Influenza, injectable, quadrivalent, preservative free 1 2018 [id number] 520 150 Seqirus (SEQ) complet ed Influenza , injectabl e, quadrival ent, preservat maria free DoD influenza, injectable, quadrivalent 2017 [id number] 158 Se[employer] complet ed influenza , injectabl e, quadrival ent 06/27/18 Given Ambulat ory Pharmac y influenza, injectable, quadrivalent, contains preservative 11 2017 [id number] 158 Seqirus (SEQ) comple t ed influenza , injectabl e, quadrival ent, contains preservat maria DoD measles/mumps /rubella virus vaccine 2017 [id number] Merck & Company Inc complet ed measles/m umps/rube lla virus vaccine 12/27/17 Given Ambulat ory Pharmac y typhoid Vi capsular polysaccharid e vac 2017 [id number] 101 sanofi pasteur complet ed typhoid Vi capsular polysacch aride vac 12/27/17 Given Ambulat ory Pharmac y measles, mumps and rubella virus vaccine 1 2017 [id number] 03 Merck (MSD) complet ed measles, mumps and rubella virus vaccine DoD typhoid Vi capsular polysaccharid e vaccine 1 2017 [id number] 101 Sanofi Pasteur (PMC) complet ed typhoid Vi capsular polysacch aride vaccine DoD measles/mumps /rubella virus vaccine 2017 [id number] Merck & Company Inc complet ed measles/m umps/rube lla virus vaccine 11/29/17 Given Ambulat ory Pharmac y measles, mumps and rubella virus vaccine 1 2017 [id number] 03 Merck (MSD) complet ed measles, mumps and rubella virus vaccine DoD tetanus, diphtheria, acellular pertu is 2017 [id number] 115 GlaxoSmithKli ne complet ed tetanus, diphtheri a, acellular pertussis 09/27/17 Given Ambulat ory Pharmac y tetanus toxoid, reduced diphtheria toxoid, and acellular pertu is vaccine, adsorbed 2 2017 [id number] 115 Zubka (SKB) complet ed tetanus toxoid, reduced diphtheri a toxoid, and acellular pertussis vaccine, adsorbed DoD Influenza, inj, MDCK, quadrivalent- pf [id number] 171 Seqirus complet ed Influenza , inj, MDCK, quadrival ent-pf 05/11/17 Given Ambulat ory Pharmac y Influenza, injectable, Madin Sandra Canine Kidney, preservative free, quadrivalent 1 [id number] 171 Seqirus (SEQ) comple t ed Influenza , injectabl e, Madin [place] Canine Kidney, preservat maria free, quadrival ent DoD influenza, seasonal, injectable-pf 2015 [id number] 140 Seqirus complet ed influenza , seasonal, injectabl e-pf 06/29/16 Given Ambulat ory Pharmac y Influenza, seasonal, injectable, preservative free 9 2015 [id number] 140 Seqirus (SEQ) comple t ed Influenza , seasonal, injectabl e, preservat maria free DoD influenza, seasonal, injectable 2014 [id number] [id number] [facility] , seasonal, injectabl e 04/30/15 Given Ambulat ory Pharmac y Influenza, seasonal, injectable 1 2014 [id number] [id number] 141 [facility] [employer] (CSL) complet ed Influenza , seasonal, injectabl e DoD Influenza, injectable, MDCK-pf 2013 [id number] 153 Novartis Pharmaceutica ls complet ed Influenza , injectabl e, MDCK-pf 04/30/14 Given Ambulat ory Pharmac y Influenza, injectable, Madin [place] Canine Kidney, preservative free 7 2013 [id number] 153 Novartis [employer] Aldo. (NOV) complet ed Influenza , injectabl e, Madin [place] Canine Kidney, preservat maria free DoD influenza, live, intranasal,qu adrivalent 2012 [id number] 149 Medimmune Inc comple t ed influenza , live, intranasa l,quadriv alent 05/12/13 Given Ambulat ory Pharmac y influenza, live, intranasal, quadrivalent 6 2012 [id number] 149 MedImmune, Inc. (MED) complet ed influenza , live, intranasa l, quadrival ent DoD measles virus vaccine 0 2012 05 () Not Given measles virus vaccine DoD rubella virus vaccine 0 2012 06 () Not Given rubella virus vaccine DoD influenza virus vaccine, live 2011 [id number] 111 Medimmune Inc comple t ed influenza virus vaccine, live 05/08/12 Given Ambulat ory Pharmac y influenza virus vaccine, live, attenuated, for intranasal use 5 2011 [id number] 111 PRX, Inc. (MED) complet ed influenza virus vaccine, live, attenuate d, for intranasa l use DoD influenza virus vaccine, live 2010 [id number] 111 Medimmune Inc comple t ed influenza virus vaccine, live 05/15/11 Given Ambulat ory Pharmac y influenza virus vaccine, live, attenuated, for intranasal use 1 2010 [id number] 111 MedImmune, Inc. (MED) complet ed influenza virus vaccine, live, attenuate d, for intranasa l use DoD influenza virus vaccine, live 2009 [id number] 111 Medimmune Inc comple t ed influenza virus vaccine, live 06/04/10 Given Ambulat ory Pharmac y influenza virus vaccine, live, attenuated, for intranasal use 1 2009 [id number] 111 MedImmune, Inc. (MED) complet ed influenza virus vaccine, live, attenuate d, for intranasa l use DoD Novel influenza-H1N 1-09, injectable 2009 [id number] 1A 127 Novartis Pharmaceutica complet ed Novel influenza -L9N7-16, injectabl e 08/09/09 Given Ambulat ory Pharmac y Novel influenza-H1N 1-09, injectable 1 2009 [id number] 1A 127 Novartis Pharmaceutica l Aldo. (NOV) complet ed Novel influenza -F4A1-77, injectabl e DoD influenza virus vaccine, live 2008 [id number] 111 Medimmune Inc comple t ed influenza virus vaccine, live 04/19/09 Given Ambulat ory Pharmac y influenza virus vaccine, live, attenuated, for intranasal use 1 2008 [id number] 111 MedImmune, Inc. (MED) complet ed influenza virus vaccine, live, attenuate d, for intranasa l use DoD hepatitis A-hepatitis B vaccine 2008 [id number] 5AA 104 GlaxoSmithKli ne complet ed hepatitis A-hepatit is B vaccine 11/22/08 Given Ambulat ory Pharmac y hepatitis A and hepatitis B vaccine 3 2008 [id number] [facility] hepatitis A and hepatitis B vaccine DoD hepatitis A-hepatitis B vaccine 2007 [id number] 2AC 104 GlaxoSmithKli ne complet ed hepatitis A-hepatit is B vaccine 05/16/08 Given Ambulat ory Pharmac y influenza virus vaccine,split 2007 [id number] 1A 15 CSL Behring complet ed influenza virus vaccine,s plit 05/16/08 Given Ambulat ory Pharmac y influenza virus vaccine, split virus (incl. purified surface antigen)-reti red CODE 1 2007 [id number] 1A 15 CSL [employer] (CSL) complet ed influenza virus vaccine, split virus (incl. purified surface antigen)- retired CODE DoD hepatitis A and hepatitis B vaccine 2 2007 [id number] 2AC 104 SmithKline (SKB) complet ed hepatitis A and hepatitis B vaccine DoD hepatitis A-hepatitis B vaccine 2007 [id number] 3AA 104 GlaxTRX SystemsithKli ne complet ed hepatitis A-hepatit is B vaccine 04/13/08 Given Ambulat ory Pharmac y measles, mumps and rubella virus vaccine 1 2007 03 () Not Given measles, mumps and rubella virus vaccine DoD varicella virus vaccine 1 2007 21 () Not Given varicella virus vaccine DoD hepatitis A and hepatitis B vaccine 1 2007 [id number] 3AA 104 [employer]Pinstripeine (SKB) complet ed hepatitis A and hepatitis B vaccine DoD tuberculin purified protein derivative 2007 [id number] 96 sanofi pasteur complet ed tuberculi n purified protein derivativ e 04/10/08 Given Ambulat ory Pharmac y tetanus, diphtheria, acellular pertu is 2007 [id number] 115 sanofi pasteur complet ed tetanus, diphtheri a, acellular pertussis 04/08/08 Given Ambulat ory Pharmac y poliovirus vaccine, inactivated 2007 [id number] 10 sanofi pasteur complet ed polioviru s vaccine, inactivat ed 04/08/08 Given Ambulat ory Pharmac y meningococcal A,C,Y,W-135 (MCV4P) 2007 [id number] 114 sanofi pasteur complet ed meningoco ccal A,C,Y,W-1 35 (MCV4P) 04/08/08 Given Ambulat ory Pharmac y poliovirus vaccine, inactivated 1 2007 [id number] 10 Sanofi Pasteur (PMC) complet ed polioviru s vaccine, inactivat ed DoD meningococcal polysaccharid e (groups A, C, Y and W-135) diphtheria toxoid conjugate vaccine (MCV4P) 1 2007 [id number] 114 Sanofi Pasteur (PMC) complet ed meningoco ccal polysacch aride (groups A, C, Y and W-135) diphtheri a toxoid conjugate vaccine (MCV4P) DoD tetanus toxoid, reduced diphtheria toxoid, and acellular pertu is vaccine, adsorbed 1 2007 [id number] 115 Sanofi Pasteur (PMC) complet ed tetanus toxoid, reduced diphtheri a toxoid, and acellular pertussis vaccine, adsorbed DoD Vital Signs Combined list of inpatient and outpatient Vital Signs from Department of Defense and Veterans Affairs, ranging from 12 months to all on record, depending upon the facility. Vital Sign Value Date Comments Source No data available for this section Ambulatory Pharmacy Encounters Combined list of: 1) Encounters from Department of Veterans Affairs facilities going back up to thelast 18 months. 2) Encounters from the Department of Defense facilities going back up to 280 months. Location Location Details Encounter Type Encounter Number Reason For Visit Attending Provider ADM Date DC Date Status Disposition Source [facility]) DENTAL [id number] sick call MIGUEL ANGEL PATEL 06/06 Released w/o Limitations [facility]) DENTAL [id number] iv sed 3rds ALEJO BARRIOS 06/06 [facility]D [facility]al [facility]) [facility]) DENTAL [id number] Iv Sedatio n 3rds CHE NEGRON 06/08 [facility](D ental Clinic) [facility](PHA Cell) OUTPATIENT [id number] RAVIN WESTFALL 11/22 Released w/o Limitations [facility](P NOLAN Cell) [facility](FP Rok II) OUTPATIENT [id number] states nausea and diarrhe a JANET BOYLE 02/21 Released w/o Limitations [facility] [facility](F P Rok II) [facility]) DENTAL [id number] sickcal MIKE Uribe 05/[facility](D [facility]al Service s) [facility] DENTAL [id number] MIGUEL ANGEL Pennington 06/19 Released w/o Limitations [facility](D [facility]al Service [facility]) [facility](FP Rok I) TELE CONSULT [id number] fever, vomitin g since yesterd ay, headach e, sore throat ANDREA JON 10/03 [facility] Group(F P Rok I) [facility](FP Rok I) OUTPATIENT [id number] AD w/ chills/ sore throat/ nausea DEANNE FLOYD 10/03 Released w/o Limitations [facility](F P Rok I) [facility](PHA Cell) OUTPATIENT [id number] [id number] SERGE JENSEN 01/19 Released w/o Limitations [facility](P NOLAN Cell) [facility](FP Rok I) OUTPATIENT [id number] uncomfo rtable breathi ng JANIS BONE 05/23 Released w/o Limitations [facility](F P Rok I) [facility]([place]) TELE CONSULT [id number] Appt with JUAN Rocha 05/23 [facility] Group( anaged Care Admin) [facility](FP Rok I) TELE CONSULT [id number] cxr results JANIS BONE 05/23 [facility](F P Rok I) [facility](FP Rok II) OUTPATIENT [id number] PATEL MARCUM 06/13 Released w/o Limitations [facility](F P Rok II) [facility](FP Rok II) OUTPATIENT [id number] tobacco cessati on TAQUERIA AGUILA E 08/22 Released w/o Limitations [facility](F P Rok II) [facility](FP Rok I) OUTPATIENT [id number] swollen lt big toe JANIS BONE 10/18 Released w/o Limitations [facility](F P Rok I) [facility]) OUTPATIENT [id number] PHA ORA DEGROOT 01/21 Released w/o Limitations [facility](P NOLAN Cell) [facility](Opt ometry Services) OUTPATIENT [id number] os red eye JAZMIN PRECIADO 03/20 Released w/o Limitations [facility](O ptometr y Service s) [facility] 2) TELE CONSULT [id number] Notes Entered by: LANEY PEREIRA 14 Oct 2011911 ------- ------- ------- ------- -- AC. Pt c/o vomitin g/diarr hea.... [id number] DEANNE EDWARDS 10/13 [facility] Group([facility] 2) Medical [facility] 2) OUTPATIENT [id number] abdomin al pain CARON ZAMUDIO 07/24 Released w/o Limitations [facility] 2) [facility] 2) OUTPATIENT [id number] abdomin al pain PIETER DONG 07/31 Released w/o Limitations [facility] 2) Medical [facility] 2) OUTPATIENT [id number] cough/c ongesti on/head ache DEANNE EDWARDS 08/19 Released w/o Limitations [facility] 2) Medical [facility] 2) OUTPATIENT [id number] dizzine ss/ligh t headed/ chills PIETER DONG 08/26 Released w/o Limitations [facility] 2) [facility] 2) TELE CONSULT [id number] Notes Entered by: YONG MARTINEZ 26 Aug 2012 1326 ------- ------- ------- ------- -- Needs f/u appt abd pain/ab n fecal fat ART TRIANA 08/26 [facility] 2) [facility](PHA Cell) OUTPATIENT [id number] ISAIAH VENEGAS 09/03 Released w/o Limitations [facility](P NOLAN Cell) Medical [facility] RO 2) OUTPATIENT [id number] f/u abd pain and adn fecal fat PIETER DONG 09/16 Released w/o Limitations [facility] ROK 2) [facility] 2) TELE CONSULT [id number] Notes Entered by: BHAVIN HUMPHRIES 24 Nov 2012 1245 ------- ------- ------- ------- -- NETWORK RESULTS - GASTRO - 11/07 PIETER DONG 11/24 [facility] Group([facility] RO 2) [facility] 2) TELE CONSULT [id number] Notes Entered by: WILL IZAGUIRRE 27 Nov 2012 1403 ------- ------- ------- ------- -- Network Results - Gastroe nterolo gy 12/07 PIETER DONG 11/27 [facility] Group([facility] RO 2) Medical [facility] 2) OUTPATIENT [id number] cold symptom s PIETER DONG 04/13 Released w/o Limitations [facility] ROK 2) Medical [facility] 2) OUTPATIENT [id number] congest ion/cou gh PIETER DONG 08/17 Released w/o Limitations [facility] RO 2) Medical [facility] 2) OUTPATIENT [id number] DEANNE August 08/26 Released w/o Limitations [facility] RO 2) Medical [facility] 2) OUTPATIENT [id number] Notes Entered by: BOZENA ABDI 10 Sep 2013 0954 ------- ------- ------- ------- -- throat culture SCHULTECASSIA LUONG NAVID 09/10 Released w/o Limitations [facility] 2) [facility] 2) OUTPATIENT [id number] pink eye DEANNE EDWARDS 09/14 Released w/o Limitations [facility] 2) [facility] 2) TELE CONSULT [id number] Notes Entered by: Vera SANTOYO 20 Sep 2013 1536 ------- ------- ------- ------- -- Ac. Michel cardona pt need med refill for chantix ...[phone] LESLY CRUZ 09/20 [facility] 2) [facility]) OUTPATIENT [id number] PHA-LIP IDS CHEYENNE BARKSDALE 09/30 Released w/o Limitations [facility](P NOLAN Cell) [facility] 2) OUTPATIENT [id number] stomach /vomiti ng and diarrhe CORDELL Alvarado 10/27 Sick at Home/Quarter s [facility] 2) [facility](In and Out Processin abran Daniel) TELE CONSULT [id number] Notes Entered by: Bree FAUSTIN 21 Jan 2014 0740 ------- ------- ------- ------- -- Out-pro CHAU Dubose 01/21 Medical Group(I n and Out Process serena Daniel) [facility] 2) OUTPATIENT [id number] mole eval/re moval-r eferral PIETER DONG 02/08 Released w/o Limitations Medical [facility] 2) [facility](Lit tle [facility] acute hospital 2) TELE CONSULT [id number] Notes Entered by: YONG MARTINEZ 16 Feb 2014 0715 ------- ------- ------- ------- -- Tissue results MUSA BOYKIN 02/16 [facility](L [facility] 2) [employer](Tra inee Aid [facility]) OUTPATIENT [id number] Notes Entered by: Pawel ZALDIVAR V 29 May 2016 1228 ------- ------- ------- ------- -- Sinus Pressur e 364TRSANDRA MEADOWS 05/29 Sick at Home/Quarter s [facility] [facility]( [facility] ) [facility] [facility]) OUTPATIENT [id number] Sinus Congest ion j7ukbxa s 364TRS SHANICE MONTELONGO 06/14 Released w/o Limitations [employer]([facility] [place] [address](AFN G 104 Med Sq-FM) OUTPATIENT [id number] Notes Entered by: OLY MHOR 29 Dec 2016 1518 ------- ------- ------- ------- -- [employer] ice VITOR POLLARD 12/29 Released w/o Limitations [facility] [place] [address](A FNG 104 Med Sq-FM) [place] [address](AFN G 104 Med Sq-FM) OUTPATIENT [id number] Notes Entered by: OLY MOHR 28 Aug 2017 1409 ------- ------- ------- ------- -- VITOR POLLARD 08/28 Released w/o Limitations [facility] [place] [address](A FNG 104 Med Sq-FM) [place] [address](AFN G 104 Med Sq-FM) OUTPATIENT [id number] Notes Entered by: HARRY DWYER 19 Sep 2017 1625 ------- ------- ------- ------- -- HERNANDEZ Raymond 09/19 Released w/o Limitations [facility] [place] [address](A FNG 104 Med Sq-FM) [facility], [place] [address](AFN G 104 Med Sq-PH) OUTPATIENT [id number] Notes Entered by: HARRY DWYER 22 Jan 2018 0909 ------- ------- ------- ------- -- Pre-Dep loyment / Occupat [facility] VITOR MOHR 01/22 Released w/o Limitations [facility] [place] [facility] [place] [address](A FNG 104 Med Sq-PH) [place] [address](AFN G 104 Med Sq-FM) OUTPATIENT [id number] Notes Entered by: MARÍA RODRIGUEZ 26 Sep 2018 1317 ------- ------- ------- ------- -- HERNANDEZ Basurto am 09/26 Released w/o Limitations [facility] [place] [address](A FNG 104 Med Sq-FM) [facility], [facility](AFN G 104 Med Sq-FM) OUTPATIENT [id number] Notes Entered by: OLY MOHR 28 Aug 2019 1419 ------- ------- ------- ------- -- VITOR POLLARD 08/28 Released w/o Limitations [facility] [place] [facility] [place] [address](A FNG 104 Med Sq-FM) [facility], [facility](AFN G 104 Med Sq-FM) OUTPATIENT [id number] Notes Entered by: ALVA NOLASCO TOMMY 18 Feb 2020 0949 ------- ------- ------- ------- -- YESICA ALVA NOLASCO TOMMY 02/17 Released w/o Limitations [facility] [place] [address](A FNG 104 Med Sq-FM) [place] [address](AFN G 104 Med Sq-FM) OUTPATIENT [id number] Notes Entered by: CONSTANCE ALVABLAYNE SANDERS 14 Jun 2020 1630 ------- ------- ------- ------- -- TAYLOR2 ALVA NOLASCO TOMMY 06/14 Released w/o Limitations [facility] [place] [address](A FNG 104 Med Sq-FM) [place] [address](AFN G 104 Med Sq-FM) OUTPATIENT [id number] ALVA NOLASCO TOMMY 09/26 Released w/o Limitations [facility] [place] [address](A FNG 104 Med Sq-FM) [place] [address](AFN G 104 Med Sq-FM) OUTPATIENT [id number] Notes Entered by: CONSTANCE ALVABLAYNE SANDERS 06 Oct 2020 1036 ------- ------- ------- ------- -- ALDO ALVA NOLASCO TOMMY 10/06 Released w/o Limitations [facility] [place] [address](A FNG 104 Med Sq-FM) [place] [address](AFN G 104 Med Sq-FM) TELE CONSULT [id number] ALVA NOLASCO TOMMY 10/27 [facility] [place] [address](A FNG 104 Med Sq-FM) [place] [address](AFN G 104 Med Sq-FM) OUTPATIENT [id number] Notes Entered by: BRENDA MARTINEZ O R 03 Oct 2021 1459 ------- ------- ------- ------- -- PHAQ JEREMY MARTINEZ R 10/03 Released w/o Limitations [place] [address](A FNG 104 Med Sq-FM) [place] [address](AFN G 104 Med Sq-FM) OUTPATIENT [id number] Notes Entered by: CASIMIRO VELAZQUEZ 04 Oct 2021 1153 ------- ------- ------- ------- -- Audiogr am/PHAQ /TAYLOR1 JEREMY MARTINEZ R 10/04 Released w/o Limitations [facility] [place] [address](A FNG 104 Med Sq-FM) [id number] MDG Between Visit [id number] 06/08 Discharge Disposition: Home or Self Care 8203R-1 04 MDG 8203R-104 MDG Between Visit [id number] 06/11 Discharge Disposition: Home or Self Care 8203R-1 04 MDG 8203R-104 MDG Mass Vaccine [id number] 07/03 Discharge Disposition: Home or Self Care 8203R-1 04 MDG 8203R-104 MDG Between Visit [id number] 07/06 Discharge Disposition: Home or Self Care 8203R-1 04 MDG 8203R-104 MDG Mass Vaccine [id number] 07/06 8203R-1 04 MDG Procedures Combined list of: 1) Procedures from [facility] Affairs facilities going back up to thelast 18 months, not all [facility] non-surgical procedures are included; 2) All procedures from the Department of Defense facilities. Procedure Procedure Type Code Date Perfomer Comments Sourc e No data available for this section Ambulatory Pharmacy BIOPSY OF SKIN, SUBCUTANEOUS TISSUE AND/OR MUCOUS MEMBRANE (INCLUDING SIMPLE CLOSURE), UNLESS OTHERWISE LISTED; SINGLE LESION 02/09/20 14 [facility] SURGICAL BOOT/SHOE, EACH 10/19/19 11 [facility] TOBACCO USE CESSATION INTERVENTION, COUNSELING (COPD, CAP, CAD, ASTHMA) (DM) (PV) 06/13/20 10 [facility] SCREENING TEST, PURE TONE, AIR ONLY 01/20/20 10 [facility] SCREENING TEST, PURE TONE, AIR ONLY 11/23/19 09 [facility] Biopsy Skin Biopsy Skin [id number] 02/09/20 14 PIETER DONG [facility] Surgical boot/shoe, each 10/19/19 11 JANIS BONE [facility] Orthopedic Strapping Foot Orthopedic Strapping Foot 87821 10/19/19 11 JANIS BONE [facility] Intervention And Counseling On Ce ation Of Tobacco Use Intervention And Counseling On Cessation Of Tobacco Use 4000F 06/13/20 10 PATEL CURIEL [facility] Audiogram (Screening) Audiogram (Screening) [id number] 01/20/20 10 SERGE JENSEN DD FORM [id number]-[id number] [facility] Audiogram (Screening) Audiogram (Screening) [id number] 11/23/19 09 RAVIN JO DD FORM [id number]-[id number] [facility] Social History Combined list of available smoking, tobacco, and other social history from [facility] of Defense and [facility] facilities. Social History Type Response Date Comment Sour e This section is an empty social history section. [facility] Assessment and Plan Combined list of future care activities from Department of Defense and Veterans Affairs facilities (e.g., assessment and plan notes, appointments, orders, and referrals). Additional future care activities may be listed in the Plan of Care section. Result Assessment and Plan Date Source Assessment and Plan No data available for this section 07/14/2024 [facility]ulatory [facility]acy Functional Status Combined list of recent functional and cognitive assessments recorded at [facility] Functional [place] Measurement (FIM) Scale: 1 = Total Assistance (Subject = 0% +), 2 = Maximal Assistance (Subject = 25% +), 3 = Moderate Assistance (Subject = 50% +), 4 = Minimal Assistance (Subject = 75% +), 5 = Supervision, 6 = Modified [place] (Device), 7 = Complete [place] (Timely, Safely). Assessment Date/Time Source Assessment Type Assessment Skill Assessment Score Assessment Details No data available for this section
== END 2024-07-14 09:45 | disposition home or self-care (01) ==
LOC: HO.HMCC 09:45
PROVIDERS: PCP Nurse Practitioner Family; Visit Provider Nurse Practitioner Family
DX: K58.0 Irritable bowel syndrome with diarrhea (principal); R14.0 Abdominal distension (gaseous)

== ENCOUNTER → 2024-07-14 09:45 | Outpatient (BNVA) | payer OTHER, SELFPAY | PROVIDERS: PCP Nurse Practitioner Family; Visit Provider Nurse Practitioner Family | DX: K58.0 Irritable bowel syndrome with diarrhea (principal); R14.0 Abdominal distension (gaseous) ==

== ENCOUNTER 2024-08-26 07:24 | Outpatient (AMB) | payer OTHER, SELFPAY ==
--- NOTE | 2024-08-26 07:32 | MHC.OFFVIS ---
Intake Visit Reasons: F/U GI Allergies gluten Adverse Reaction (Mild, Verified 09/24/23 13:45) Diarrhea Medication List - Last Reconciled 08/26/24 [facility] dicyclomine 20 mg PO QID 30 days HPI HPI F/U GI: Details: History of Present Illness The patient is a 39-year-old male presenting with gastrointestinal symptoms management. He reports a history of gastrointestinal issues, including previous detection of polyps during a colonoscopy in 2009. In the past, Ulcerative Colitis and Crohn's Disease were ruled out. He did not undergo an endoscopy at that time. The patient describes suffering from Irritable Bowel Syndrome with diarrhea-predominant symptoms, including early satiety, bloating, and excessive cramping. The patient reports intermittent diarrhea, which he initially experienced daily. Recent lifestyle modifications, such as the cessation of alcohol, nicotine, and caffeine, have reduced the frequency of diarrhea to every other day. The patient has attempted symptom management with [id number] Loperamide, which has been effective in bulking stools, but severe cramping persists. A gluten-free diet, implemented many years ago, provided significant relief, and the patient continues to avoid gluten. Most dairy products are avoided, although cramping and excessive gas remain problematic. The patient also experimented with the FODMAP diet, which did not yield improvement. fiber supple ent to help bulk stools did the opposite, and a probiotic also did not help. Previous stool studies were negative for anomalies, and the patient denies experiencing fever, chills, chest pain, shortness of breath, or hematochezia. Review of Systems - Gastrointestinal: Reports bloating and excessive gas - General: Denies fever and chills - Cardiovascular: Denies chest pain - Respiratory: Denies shortness of breath - Gastrointestinal: Denies blood in stool Plan - Initiate treatment with Dicyclomine for symptomatic relief of severe abdominal cramping. - Perform laboratory tests including Erythrocyte Sedimentation Rate ESR) and C-Reactive Protein CRP) to assess inflammatory markers. - Refer to Gastroenterology for further evaluation and potential endoscopic examination. Patient was informed and verbally consented to the use of an ambient scribe for clinic note documentation during this visit. Discussion Notes I discussed the ongoing gastrointestinal issues with the patient, including the likelihood of Irritable Bowel Syndrome with diarrhea-predominant symptoms. We explored lifestyle modifications that the patient has already implemented and their limited success in alleviating symptoms. The introduction of Dicyclomine was recommended for managing abdominal cramping. The patient consented to laboratory tests, including ESR and CRP, to detect any inflammation. We also discussed the necessity of referral to a automotive design drafter for further assessment due to persistent symptoms. Wholeheartedly, the patient agreed to follow the outlined plan and revisit if symptoms do not resolve or worsen. Patient Instructions - Begin taking Dicyclomine as prescribed for abdominal cramping relief. - Attend scheduled laboratory tests to monitor inflammatory markers. - Follow up with Gastroenterology as referred for further evaluation. - Continue with gluten and dairy avoidance if it provides symptom relief. - Return for consultation if symptoms persist or aggravate. [facility] Medical History Gluten intolerance Surgical History History of testicular surgery History of surgery on lower extremity History of nasal surgery H/O vasectomy H/O nasal septoplasty H/O wisdom tooth extraction Family History Father Lung cancer HTN (hypertension) Mother No problems noted. Social History Housing: Apartment Comment: stinging Patient Tobacco Use Status: Former Tobacco user Tobacco use type: Cigarette Years Smoked: 10 e-Cigarette/Vaping Use: Never Used Second Hand Smoke Exposure: No service: Yes Current occupational status: employed Current occupation: [employer] Current occupational exposures/hazards: Yes Cognitive needs: No Hearing needs: No Vision needs: No Assessment & Plan Assessment & Plan (1) Early satiety: Code(s): R68.81 - Early satiety Category: Medical (2) Bloating: Code(s): R14.0 - Abdominal distension (gaseous) Category: Medical (3) Irritable bowel syndrome with diarrhea: Code(s): K58.0 - Irritable bowel syndrome with diarrhea Category: Medical Plan . Orders: Orders Comprehensive [place]. Panel Fast Today K58.0 - Irritable bowel syndrome with diarrhea, R14.0 - Abdominal distension (gaseous), R68.81 - Early satiety TSH reflex Free T4 Today K58.0 - Irritable bowel syndrome with diarrhea, R14.0 - Abdominal distension (gaseous), R68.81 - Early satiety UA CC w/rflx Micro + Cult Today K58.0 - Irritable bowel syndrome with diarrhea, R14.0 - Abdominal distension (gaseous), R68.81 - Early satiety C Reactive Protein Today K58.0 - Irritable bowel syndrome with diarrhea, R14.0 - Abdominal distension (gaseous), R68.81 - Early satiety Endomysial IgA rflx Titer Today K58.0 - Irritable bowel syndrome with diarrhea, R14.0 - Abdominal distension (gaseous), R68.81 - Early satiety Complete Blood Count Auto Diff Today K58.0 - Irritable bowel syndrome with diarrhea, R14.0 - Abdominal distension (gaseous), R68.81 - Early satiety Lipid Panel Today K58.0 - Irritable bowel syndrome with diarrhea, R14.0 - Abdominal distension (gaseous), R68.81 - Early satiety Erythrocyte Sedimentation Rate Today K58.0 - Irritable bowel syndrome with diarrhea, R14.0 - Abdominal distension (gaseous), R68.81 - Early satiety Transglutaminase IgA Today K58.0 - Irritable bowel syndrome with diarrhea, R14.0 - Abdominal distension (gaseous), R68.81 - Early satiety Transglutaminase Ab IgG Today K58.0 - Irritable bowel syndrome with diarrhea, R14.0 - Abdominal distension (gaseous), R68.81 - Early satiety Medications: New dicyclomine 20 mg PO QID 120 tabs 2RF 30 days Coding Level of Care Code Tele Est Pt Level 3 (50455) Diagnoses Early satiety R68.81 Bloating R14.0 Irritable bowel syndrome with diarrhea K58.0
--- OUTSIDE RECORDS SUMMARY | 2024-08-26 10:33 | XMS_ITS | Continuity of Care Document ---
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 It does not include entries that were removed or entered in error. Problem Status Onset Date Problem Type Date of Resolution Comments Source conjunctivitis Inactive Condition [facility] sore throat Inactive Condition [facility] Patient Education - Medication Active Condition DoD irritable bowel syndrome Active Condition DoD muscle aches, generalized (myalgia) Active Condition DoD Outpatient Physician Consultation Active Condition DoD influenza Inactive Condition DoD upper respiratory infection Inactive Condition [facility] pruritus ani Inactive Condition DoD current smoker Active Condition DoD abdominal pain Active Condition DoD conjunctivitis acute bacterial Inactive Condition DoD patient activity at time of event - volleyball Active Condition DoD joint pain in the toes Inactive Condition DoD nicotine dependence Active Condition Do D Patient Education Active Condition DoD visit for: administrative purpose Inactive Condition [facility] pectus excavatum Active Condition DoD nausea with vomiting Inactive Condition [facility] nicotine dependence continuous Active Condition DoD generalized pain Active Condition [facility] sore throat Inactive Condition DoD gastroenteritis Active Condition [facility] Patient Counseling: Inactive Condition D oD visit [...] Site Reaction Lot Number CVX Code Drug Lead Ios Developer Status Comments Source influenza virus vaccine, inactivated 2023 LAILA Haley tea, right (delt oid) [id number] [place] complet ed influenza virus vaccine, inactivat ed 07/06/24 Given 8203R-1 04 MDG influenza, injectable, quadrivalent 2020 [id number] 158 GlaxoSmithKli ne complet ed influenza , injectabl e, quadrival ent 06/03/21 Given Ambulat ory Pharmac y influenza, injectable, quadrivalent, contains preservative 8 2020 [id number] 158 [facility] (SKB) complet ed influenza , injectabl e, quadrival ent, contains preservat maria DoD COVID Vaccine Moderna 2020 [id number] complet ed COVID Vaccine Moderna 11/09/20 Given Ambulat ory Pharmac y SARS-COV-2 (COVID-19) vaccine, mRNA, spike protein, LNP, preservative free, 100 mcg or 50 mcg dose 2 2020 [id number] 207 Moderna [employer] (MOD) complet ed SARS-COV- 2 (COVID-19 ) vaccine, mRNA, spike protein, LNP, preservat maria free, 100 mcg or 50 mcg dose DoD COVID Vaccine Moderna 2020 [id number] complet ed COVID Vaccine Moderna 10/07/20 Given Ambulat ory Pharmac y SARS-COV-2 (COVID-19) vaccine, mRNA, spike protein, LNP, preservative free, 100 mcg or 50 mcg dose 1 2020 [id number] 207 Moderna [employer] (MOD) complet ed SARS-COV- 2 (COVID-19 ) vaccine, mRNA, spike protein, LNP, preservat maria free, 100 mcg or 50 mcg dose DoD influenza, injectable, quadrivalent- pf 2019 [id number] 077 150 [employer] complet ed influenza , injectabl e, quadrival ent-pf 06/11/20 Given Ambulat ory Pharmac y Influenza, injectable, quadrivalent, preservative free 1 2019 [id number] 077 150 [employer] (SEQ) complet ed Influenza , injectabl e, quadrival ent, preservat maria free DoD influenza, injectable, quadrivalent- pf 2018 [id number] 150 [employer] complet ed influenza , injectabl e, quadrival ent-pf 05/02/19 Given Ambulat ory Pharmac y Influenza, injectable, quadrivalent, preservative free 1 2018 [id number] 520 150 [employer] (SEQ) complet ed Influenza , injectabl e, quadrival ent, preservat maria free DoD influenza, injectable, quadrivalent 2017 [id number] 158 [employer] complet ed influenza , injectabl e, quadrival ent 06/27/18 Given Ambulat ory Pharmac y influenza, injectable, quadrivalent, contains preservative 11 2017 [id number] 158 [employer] (SEQ) comple t ed influenza , injectabl e, quadrival ent, contains preservat maria DoD measles/mumps /rubella virus vaccine 2017 [id number] Merck & Company Inc complet ed measles/m umps/rube lla virus vaccine 12/27/17 Given Ambulat ory Pharmac y typhoid Vi capsular polysaccharid e vac 2017 [id number] 101 sanofi pasteur complet ed typhoid Vi capsular polysacch aride vac 12/27/17 Given Ambulat ory Pharmac y measles, mumps and rubella virus vaccine 1 2017 [id number] 03 Merck (MSD) complet ed measles, mumps and rubella virus vaccine DoD typhoid Vi capsular polysaccharid e vaccine 1 2017 [id number] 101 Sanofi Pasteur (PMC) complet ed typhoid Vi capsular polysacch aride vaccine DoD measles/mumps /rubella virus vaccine 2017 [id number] 03 Merck & Company Inc complet ed measles/m umps/rube lla virus vaccine 11/29/17 Given Ambulat ory Pharmac y measles, mumps and rubella virus vaccine 1 2017 [id number] 03 Merck (MSD) complet ed measles, mumps and rubella virus vaccine DoD tetanus, diphtheria, acellular pertu is 2017 [id number] 115 GlaxoSmithKli ne complet ed tetanus, diphtheri a, acellular pertussis 09/27/17 Given Ambulat ory Pharmac y tetanus toxoid, reduced diphtheria toxoid, and acellular pertu is vaccine, adsorbed 2 2017 [id number] 115 [employer] (SKB) complet ed tetanus toxoid, reduced diphtheri a toxoid, and acellular pertussis vaccine, adsorbed DoD Influenza, inj, MDCK, quadrivalent- pf [id number] 171 Se[employer]irus complet ed Influenza , inj, MDCK, quadrival ent-pf 05/11/17 Given Ambulat ory Pharmac y Influenza, injectable, Madin Sandra Canine Kidney, preservative free, quadrivalent 1 [id number] 171 Se[employer]irus (SEQ) comple t ed Influenza , injectabl e, Madin Sandra Canine Kidney, preservat maria free, quadrival ent DoD influenza, seasonal, injectable-pf 2015 [id number] 140 Se[employer]irus complet ed influenza , seasonal, injectabl e-pf 06/29/16 Given Ambulat ory Pharmac y Influenza, seasonal, injectable, preservative free 9 2015 [id number] 140 Se[employer]irus (SEQ) comple t ed Influenza , seasonal, injectabl e, preservat maria free DoD influenza, seasonal, injectable 2014 [id number] 1A [facility] influenza , seasonal, injectabl e 04/30/15 Given Ambulat ory Pharmac y Influenza, seasonal, injectable 1 2014 [id number] [id number] 141 [facility] [employer] (CSL) complet ed Influenza , seasonal, injectabl e DoD Influenza, injectable, MDCK-pf 2013 [id number] 153 Novartis Pharmaceutica ls complet ed Influenza , injectabl e, MDCK-pf 04/30/14 Given Ambulat ory Pharmac y Influenza, injectable, Madin Sandra Canine Kidney, preservative free 7 2013 [id number] 153 Novartis [place] [employer] Aldo. (NOV) complet ed Influenza , injectabl e, Madin Sandra Canine Kidney, preservat maria free DoD influenza, live, intranasal,qu adrivalent 2012 [id number] 149 Medimmune Inc comple t ed influenza , live, intranasa l,quadriv alent 05/12/13 Given Ambulat ory Pharmac y influenza, live, intranasal, quadrivalent 6 2012 [id number] 149 MedImmune, Inc. (MED) complet ed influenza , live, intranasa l, quadrival ent DoD measles virus vaccine 0 2012 05 () Not Given measles virus vaccine DoD rubella virus vaccine 0 2012 06 () Not Given rubella virus vaccine DoD influenza virus vaccine, live 2011 [id number] 111 Medimmune Inc comple t ed influenza virus vaccine, live 05/08/12 Given Ambulat ory Pharmac y influenza virus vaccine, live, attenuated, for intranasal use 5 2011 [id number] 111 [employer] (MED) complet ed influenza virus vaccine, live, attenuate d, for intranasa l use DoD influenza virus vaccine, live 2010 [id number] 111 Medimmune Inc comple t ed influenza virus vaccine, live 05/15/11 Given Ambulat ory Pharmac y influenza virus vaccine, live, attenuated, for intranasal use 1 2010 [id number] 111 MedImmune, Inc. (MED) complet ed influenza virus vaccine, live, attenuate d, for intranasa l use DoD influenza virus vaccine, live 2009 [id number] 111 Medimmune Inc comple t ed influenza virus vaccine, live 06/04/10 Given Ambulat ory Pharmac y influenza virus vaccine, live, attenuated, for intranasal use 1 2009 [id number] 111 MedImmune, Inc. (MED) complet ed influenza virus vaccine, live, attenuate d, for intranasa l use DoD Novel influenza-H1N 1-09, injectable 2009 [id number] 1A 127 Novartis Pharmaceutica complet ed Novel influenza -D7U0-52, injectabl e 08/09/09 Given Ambulat ory Pharmac y Novel influenza-H1N 1-09, injectable 1 2009 [id number] 1A 127 Novartis Pharmaceutica l Aldo. (NOV) complet ed Novel influenza -R3D6-39, injectabl e DoD influenza virus vaccine, live 2008 [id number] 111 Medimmune Inc comple t ed influenza virus vaccine, live 04/19/09 Given Ambulat ory Pharmac y influenza virus vaccine, live, attenuated, for intranasal use 1 2008 [id number] 111 MedImmune, Inc. (MED) complet ed influenza virus vaccine, live, attenuate d, for intranasa l use DoD hepatitis A-hepatitis B vaccine 2008 [id number] 5AA 104 GlaxoSmithKli ne complet ed hepatitis A-hepatit is B vaccine 11/22/08 Given Ambulat ory Pharmac y hepatitis A and hepatitis B vaccine 3 2008 [id number] 5AA 104 [facility] hepatitis A and hepatitis B vaccine DoD hepatitis A-hepatitis B vaccine 2007 [id number] 2AC 104 GlaxoSmithKli ne complet ed hepatitis A-hepatit is B vaccine 05/16/08 Given Ambulat ory Pharmac y influenza virus vaccine,split 2007 [id number] 1A 15 CSL Behring complet ed influenza virus vaccine,s plit 05/16/08 Given Ambulat ory Pharmac y influenza virus vaccine, split virus (incl. purified surface antigen)-reti red CODE 1 2007 [id number] 1A 15 [employer] (CSL) complet ed influenza virus vaccine, split virus (incl. purified surface antigen)- retired CODE DoD hepatitis A and hepatitis B vaccine 2 2007 [id number] 2AC 104 SmithKline (SKB) complet ed hepatitis A and hepatitis B vaccine DoD hepatitis A-hepatitis B vaccine 2007 [id number] 3AA 104 GlaxCardbackithKli ne complet ed hepatitis A-hepatit is B vaccine 04/13/08 Given Ambulat ory Pharmac y measles, mumps and rubella virus vaccine 1 2007 03 () Not Given measles, mumps and rubella virus vaccine DoD varicella virus vaccine 1 2007 21 () Not Given varicella virus vaccine DoD hepatitis A and hepatitis B vaccine 1 2007 [id number] 3AA 104 [employer]minderine (SKB) complet ed hepatitis A and hepatitis B vaccine DoD tuberculin purified protein derivative 2007 [id number] 96 sanofi pasteur complet ed tuberculi n purified protein derivativ e 04/10/08 Given Ambulat ory Pharmac y tetanus, diphtheria, acellular pertu is 2007 [id number] 115 sanofi pasteur complet ed tetanus, diphtheri a, acellular pertussis 04/08/08 Given Ambulat ory Pharmac y poliovirus vaccine, inactivated 2007 [id number] 10 sanofi pasteur complet ed polioviru s vaccine, inactivat ed 04/08/08 Given Ambulat ory Pharmac y meningococcal A,C,Y,W-135 (MCV4P) 2007 [id number] 114 sanofi pasteur complet ed meningoco ccal A,C,Y,W-1 35 (MCV4P) 04/08/08 Given Ambulat ory Pharmac y poliovirus vaccine, inactivated 1 2007 [id number] 10 Sanofi Pasteur (PMC) complet ed polioviru s vaccine, inactivat ed DoD meningococcal polysaccharid e (groups A, C, Y and W-135) diphtheria toxoid conjugate vaccine (MCV4P) 1 2007 [id number] 114 Sanofi Pasteur (PMC) complet ed meningoco ccal polysacch aride (groups A, C, Y and W-135) diphtheri a toxoid conjugate vaccine (MCV4P) DoD tetanus toxoid, reduced diphtheria toxoid, and acellular pertu is vaccine, adsorbed 1 2007 [id number] 115 Sanofi Pasteur (PMC) complet ed tetanus [...] Date Status Disposition Source [employer](Den [facility]) DENTAL [id number] sick call MIGUEL ANGEL PATEL 06/06 Released w/o Limitations [employer](D [facility]al [facility]) [employer]([facility]) DENTAL [id number] iv sed 3rds ALEJO BARRIOS 06/06 [employer](D [facility]al Clinic) [employer]([facility]) DENTAL [id number] Iv Sedatio n 3rds CHE NEGRON 06/08 [employer](D ental Clinic) [employer](PHA Cell) OUTPATIENT [id number] RAVIN WESTFALL 11/22 Released w/o Limitations [employer](P NOLAN Cell) [employer](FP Rok II) OUTPATIENT [id number] states nausea and diarrhe a JANET BOYLE 02/21 Released w/o Limitations [employer](F P Rok II) [employer]([facility]) DENTAL [id number] sickcal MIKE Uribe 05/[employer](D ental Service s) [employer]([facility]) DENTAL [id number] MIGUEL ANGEL Pennington 06/19 Released w/o Limitations [employer](D ental Service s) [facility] Group(FP Rok I) TELE CONSULT [id number] fever, vomitin g since yesterd ay, headach e, sore throat ANDREA JON 10/03 Medical Group(F P Rok I) [facility] Group(FP Rok I) OUTPATIENT [id number] AD w/ chills/ sore throat/ nausea DEANNE FLOYD 10/03 Released w/o Limitations [facility](F P Rok I) [facility]) OUTPATIENT [id number] SERGE JENSEN 01/19 Released w/o Limitations [employer] [facility](P NOLAN Cell) [facility](FP Rok I) OUTPATIENT [id number] uncomfo rtable breathi ng JANIS BONE 05/23 Released w/o Limitations [facility](F P Rok I) [facility]([place] [facility]) TELE CONSULT [id number] Appt with JUAN Rocha 05/23 Medical Group( anaged Care Admin) [facility] Group(FP Rok I) TELE CONSULT [id number] cxr results JANIS BONE 05/23 Medical Group(F P Rok I) [facility](FP Rok II) OUTPATIENT [id number] PATEL MARCUM 06/13 Released w/o Limitations [facility](F P Rok II) [facility] Group(FP Rok II) OUTPATIENT [id number] tobacco cessati on TAQUERIA AGUILA E 08/22 Released w/o Limitations [facility](F P Rok II) [facility](FP Rok I) OUTPATIENT [id number] swollen lt big toe JANIS BONE 10/18 Released w/o Limitations [facility](F P Rok I) [facility]) OUTPATIENT [id number] PHA ORA DEGROOT 01/21 Released w/o Limitations [facility](P NOLAN Cell) [facility] Group(Opt ometry Services) OUTPATIENT [id number] os red eye JAZMIN PRECIADO 03/20 Released w/o Limitations [facility](O ptometr y Service s) [facility] 2) TELE CONSULT [id number] Notes Entered by: LANEY PEREIRA 14 Oct 2011911 ------- ------- ------- ------- -- AC. Pt c/o vomitin g/diarr hea.... [id number] DEANNE EDWARDS 10/13 Medical Group([facility] 2) [facility] 2) OUTPATIENT [id number] abdomin al pain CARON ZAMUDIO 07/24 Released w/o Limitations [facility] 2) [facility] 2) OUTPATIENT [id number] abdomin al pain PIETER DONG 07/31 Released w/o Limitations [facility] 2) [facility] 2) OUTPATIENT [id number] cough/c ongesti on/head ache DEANNE EDWARDS 08/19 Released w/o Limitations [facility] 2) [facility] 2) OUTPATIENT [id number] dizzine ss/ligh t headed/ chills PIETER DONG 08/26 Released w/o Limitations [facility] 2) Medical Group([facility] 2) TELE CONSULT [id number] Notes Entered by: YONG MARTINEZ 26 Aug 2012 1326 ------- ------- ------- ------- -- Needs f/u appt abd pain/ab n fecal fat ART TRIANA 08/26 Medical Group([facility] 2) [facility](PHA Cell) OUTPATIENT [id number] ISAIAH VENEGAS 09/03 Released w/o Limitations [facility](P NOLAN Cell) [facility] RO 2) OUTPATIENT [id number] f/u abd pain and adn fecal fat PIETER DONG 09/16 Released w/o Limitations [facility] ROK 2) Medical Group([facility] 2) TELE CONSULT [id number] Notes Entered by: BHAVIN HUMPHRIES 24 Nov 2012 1245 ------- ------- ------- ------- -- NETWORK RESULTS - GASTRO - 11/07 PIETER DONG 11/24 Medical Group([facility] RO 2) [facility] 2) TELE CONSULT [id number] Notes Entered by: WILL IZAGUIRRE 27 Nov 2012 1403 ------- ------- ------- ------- -- Network Results - Gastroe nterolo gy 12/07 PIETER DONG 11/27 Medical Group([facility] RO 2) [facility] 2) OUTPATIENT [id number] cold symptom s PIETER DONG 04/13 Released w/o Limitations [facility] ROK 2) [facility] 2) OUTPATIENT [id number] congest ion/cou gh PIETER DONG 08/17 Released w/o Limitations [facility] RO 2) [facility] 2) OUTPATIENT [id number] DEANNE August 08/26 Released w/o Limitations [facility] RO 2) [facility] 2) OUTPATIENT [id number] Notes Entered by: BOZENA ABDI 10 Sep 2013 0954 ------- ------- ------- ------- -- throat culture SCHULTECASSIA LUONG NAVID 09/10 Released w/o Limitations [facility] 2) [facility] Group([facility] 2) OUTPATIENT [id number] pink eye DEANNE EDWARDS 09/14 Released w/o Limitations [employer] [facility] 2) [facility] 2) TELE CONSULT [id number] Notes Entered by: Vera SANTOYO 20 Sep 2013 1536 ------- ------- ------- ------- -- Ac. Michel cardona pt need med refill for chantix ...[phone] LESLY CRUZ 09/20 Medical Group([facility] 2) [facility]) OUTPATIENT [id number] PHA-LIP IDS CHEYENNE BARKSDALE 09/30 Released w/o Limitations [employer] [facility](P NOLAN Cell) [facility] Group([facility] 2) OUTPATIENT [id number] stomach /vomiti ng and diarrhe CORDELL Alvarado 10/27 Sick at Home/Quarter s [facility] 2) [facility] Group(In and Out Processin abran Daniel) TELE CONSULT [id number] Notes Entered by: Bree FAUSTIN 21 Jan 2014 0740 ------- ------- ------- ------- -- Out-pro CHAU Dubose 01/21 Medical Group(I n and Out Process serena Daniel) [facility] 2) OUTPATIENT [id number] mole eval/re moval-r eferral PIETER DONG 02/08 Released w/o Limitations [facility] 2) [employer](Lit tle [facility] 2) TELE CONSULT [id number] Notes Entered by: YONG MARTINEZ 16 Feb 2014 0715 ------- ------- ------- ------- -- Tissue results MUSA BOYKIN 02/16 [employer](L my [facility] 2) [employer](Tra inee Aid [facility]) OUTPATIENT [id number] Notes Entered by: Pawel ZALDIVAR V 29 May 2016 1228 ------- ------- ------- ------- -- Sinus Pressur e 364TRSANDRA MEADOWS 05/29 Sick at Home/Quarter s [employer]( [employer] [facility] ) [employer]([facility]) OUTPATIENT [id number] Sinus Congest ion q8fwlel s 364TRS SHANICE MONTELONGO 06/14 Released w/o Limitations [employer]([facility] [place] [address](AFN G 104 Med Sq-FM) OUTPATIENT [id number] Notes Entered by: OLY MOHR 29 Dec 2016 1518 ------- ------- ------- ------- -- [employer] ice VITOR POLLARD 12/29 Released w/o Limitations [facility] [place] [address](A FNG 104 Med Sq-FM) [place] [address](AFN G 104 Med Sq-FM) OUTPATIENT [id number] Notes Entered by: OLY MOHR 28 Aug 2017 1409 ------- ------- ------- ------- -- VITOR POLLARD 08/28 Released w/o Limitations [facility] [place] [address](A FNG 104 Med Sq-FM) [place] [address](AFN G 104 Med Sq-FM) OUTPATIENT [id number] Notes Entered by: HARRY DWYER 19 Sep 2017 1625 ------- ------- ------- ------- -- HERNANDEZ Raymond 09/19 Released w/o Limitations [facility] [place] [address](A FNG 104 Med Sq-FM) [facility], [place] [address](AFN G 104 Med Sq-PH) OUTPATIENT [id number] Notes Entered by: HARRY DWYER 22 Jan 2018 0909 ------- ------- ------- ------- -- Pre-Dep loyment / Occupat [facility] VITOR MOHR 01/22 [facility]/o Limitations [facility] [place] [address](A FNG 104 Med Sq-PH) [place] [address](AFN G 104 Med Sq-FM) OUTPATIENT [id number] Notes Entered by: MARÍA RODRIGUEZ 26 Sep 2018 1317 ------- ------- ------- ------- -- HERNANDEZ Basurto am 09/26 Released w/o Limitations [facility] [place] [address](A FNG 104 Med Sq-FM) [facility], [facility](AFN G 104 Med Sq-FM) OUTPATIENT [id number] Notes Entered by: OLY MOHR 28 Aug 2019 1419 ------- ------- ------- ------- -- VITOR POLLARD 08/28 [facility]ased w/o Limitations [facility] [place] [address](A FNG 104 Med Sq-FM) [facility], [facility](AFN G 104 Med Sq-FM) OUTPATIENT [id number] Notes Entered by: ALVA NOLASCO TOMMY 18 Feb 2020 0949 ------- ------- ------- ------- -- YESICA ALVA NOLASCO TOMMY 02/17 Released w/o Limitations [facility] [place] [address](A FNG 104 Med Sq-FM) [facility] [address](AFN G 104 Med Sq-FM) OUTPATIENT [id number] Notes Entered by: CONSTANCE ALVABLAYNE SANDERS 14 Jun 2020 1630 ------- ------- ------- ------- -- TAYLOR2 ALVA NOLASCO TOMMY 06/14 Released w/o Limitations [facility] [place] [address](A FNG 104 Med Sq-FM) [facility] [address](AFN G 104 Med Sq-FM) OUTPATIENT [id number] ALVA NOLASCO TOMMY 09/26 Released w/o Limitations [facility] [place] [address](A FNG 104 Med Sq-FM) [facility] [address](AFN G 104 Med Sq-FM) OUTPATIENT [id number] Notes Entered by: CONSTANCE ALVABLAYNE SANDERS 06 Oct 2020 1036 ------- ------- ------- ------- -- ALDO ALVA NOLASCO TOMMY 10/06 Released w/o Limitations [facility] [place] [address](A FNG 104 Med Sq-FM) [facility] [place] [facility] [address](AFN G 104 Med Sq-FM) TELE CONSULT [id number] ALVA NOLASCO TOMMY 10/27 [facility] [place] [address](A FNG 104 Med Sq-FM) [facility] [place] [facility] [address](AFN G 104 Med Sq-FM) OUTPATIENT [id number] Notes Entered by: BERNDA MARTINEZ O R 03 Oct 2021 1459 ------- ------- ------- ------- -- PHAQ JEREMY MARTINEZ R 10/03 Released w/o Limitations [facility] [place] [address](A FNG 104 Med Sq-FM) [facility] [address](AFN G 104 Med Sq-FM) OUTPATIENT [id number] Notes Entered by: CASIMIRO VELAZQUEZ 04 Oct 2021 1153 ------- ------- ------- ------- -- Audiogr am/PHAQ /JEREMY BLUM R 10/04 Released w/o Limitations [facility] [place] [address](A FNG 104 Med Sq-FM) 8203R-104 MDG Between Visit [id number] 06/08 Discharge Disposition: Home or Self Care 8203R-1 04 MDG 8203R-104 MDG Between Visit [id number] 06/11 Discharge Disposition: Home or Self Care 8203R-1 04 MDG 8203R-104 MDG Mass Vaccine [id number] 07/03 Discharge Disposition: Home or Self Care 8203R-1 04 MDG 8203R-104 MDG Between Visit [id number] 07/06 Discharge Disposition: Home or Self Care 8203R-1 04 MDG 8203R-104 MDG Mass Vaccine [id number] 07/06 8203R-1 04 MDG Procedures Combined list of: 1) Procedures from Department of Veterans Affairs facilities going back up to thelast 18 months, not all VA non-surgical procedures are included; 2) All procedures from the Department of Defense facilities. Procedure Procedure Type Code Date Perfomer Comments Sourc e BIOPSY OF SKIN, SUBCUTANEOUS TISSUE AND/OR MUCOUS MEMBRANE (INCLUDING SIMPLE CLOSURE), UNLESS OTHERWISE LISTED; SINGLE LESION 02/09/20 14 [facility] SURGICAL BOOT/SHOE, EACH 10/19/19 11 [facility] TOBACCO USE CESSATION INTERVENTION, COUNSELING (COPD, CAP, CAD, ASTHMA) (DM) (PV) 06/13/20 10 [facility] SCREENING TEST, PURE TONE, AIR ONLY 01/20/20 10 [facility] SCREENING TEST, PURE TONE, AIR ONLY 11/23/19 09 [facility] Biopsy Skin Biopsy Skin 75171 02/09/20 14 PIETER DONG [facility] Surgical boot/shoe, each 10/19/19 11 JANIS BONE [facility] Orthopedic Strapping Foot Orthopedic Strapping Foot 26371 10/19/19 11 JANIS BONE [facility] Intervention And Counseling On Ce ation Of Tobacco Use Intervention And Counseling On Cessation Of Tobacco Use 4000F 06/13/20 10 PATEL CURIEL [facility] Audiogram (Screening) Audiogram (Screening) 22390 01/20/20 10 SERGE JENSEN DD FORM [id number] [facility] Audiogram (Screening) Audiogram (Screening) [id number] 11/23/19 09 RAVIN JO DD FORM [id number] [facility] No data available for this section Ambulatory Pharmacy Social History Combined list of available smoking, tobacco, and other social history from [facility] facilities. Social History Type Response Date Comment Sour e This section is an empty social history section. [facility] Assessment and Plan Combined list of future care activities from [facility] facilities (e.g., assessment and plan notes, appointments, orders, and referrals). Additional future care activities may be listed in the Plan of Care section. Result Assessment and Plan Date Source Assessment and Plan No data available for this section 08/26/2024 Ambulatory Pharmacy Functional Status Combined list of recent functional and cognitive assessments recorded at [facility] Functional [place] Measurement (FIM) Scale: 1 = Total Assistance (Subject = 0% +), 2 = Maximal Assistance (Subject = 25% +), 3 = Moderate Assistance (Subject = 50% +), 4 = Minimal Assistance (Subject = 75% +), 5 = Supervision, 6 = Modified [place] (Device), 7 = Complete [place] (Timely, Safely). Assessment Date/Time Source Assessment Type Assessment Skill Assessment Score Assessment Details No data available for this section
== END 2024-08-26 08:22 | disposition home or self-care (01) ==
LOC: HO.HMCC 07:24
PROVIDERS: PCP Nurse Practitioner Family; Visit Provider Nurse Practitioner Family
DX: R68.81 Early satiety (principal); R14.0 Abdominal distension (gaseous); K58.0 Irritable bowel syndrome with diarrhea

== ENCOUNTER → 2024-08-26 07:24 | Outpatient (BNVA) | payer OTHER, SELFPAY | PROVIDERS: PCP Nurse Practitioner Family; Visit Provider Nurse Practitioner Family | DX: K58.0 Irritable bowel syndrome with diarrhea (principal); R14.0 Abdominal distension (gaseous); R68.81 Early satiety ==

== ENCOUNTER 2024-10-05 10:22 | Outpatient (AMB) | payer OTHER, SELFPAY ==
--- NOTE | 2024-10-05 07:21 | MHC.OFFVIS ---
Intake Visit Reasons: Followup IBS Allergies gluten Adverse Reaction (Mild, Verified 09/24/23 13:45) Diarrhea HPI HPI Followup IBS: Details: History of Present Illness The patient is a 39-year-old male presenting with chronic gastrointestinal issues, including early satiety, bloating, and diarrhea, persisting for many years. His last colonoscopy in 2009 was apparently negative. Lifestyle modifications, such as a gluten-free and FODMAP diet, have not alleviated symptoms, nor has alcohol cessation. Medications like loperamide provided limited relief, and dicyclomine was ineffective for abdominal cramping. Despite dietary restrictions, symptoms persist. Review of Systems - Gastrointestinal: Reports bloating and diarrhea; denies blood in stool - Constitutional: Denies fever and chills - Neurological: Reports sciatic pain Plan The patient is scheduled for laboratory tests to investigate the chronic gastrointestinal symptoms further, given previous dietary modifications and medication trials have been ineffective. Supportive treatment continues with avoidance of alcohol. A hydrotel operator referral is planned for more comprehensive evaluation and tailored management. Discussion Notes I discussed the patient's chronic gastrointestinal symptoms, detailing that laboratory tests will provide further insights, given the ineffectiveness of dietary changes and medications tried thus far. It was agreed that a referral to gastroenterology is appropriate for advanced evaluation. I emphasized the importance of compliance with the planned laboratory workup. The patient was informed of the potential for further therapeutic options once more data is obtained from the specialist evaluation. Patient Instructions - Complete the laboratory tests within the next week - Adhere to the current dietary restrictions and continue abstinence from alcohol - Follow-up with a hydrotel operator as scheduled - Report any new or worsening symptoms immediately [facility] Medical History Gluten intolerance Surgical History History of testicular surgery History of surgery on lower extremity History of nasal surgery H/O vasectomy H/O nasal septoplasty H/O wisdom tooth extraction Family History Father Lung cancer HTN (hypertension) Mother No problems noted. Social History Housing: Apartment Comment: stinging Patient Tobacco Use Status: Former Tobacco user Tobacco use type: Cigarette Years Smoked: 10 e-Cigarette/Vaping Use: Never Used Second Hand Smoke Exposure: No service: Yes Current occupational status: employed Current occupation: [employer] Current occupational exposures/hazards: Yes Cognitive needs: No Hearing needs: No Vision needs: No Telehealth Telehealth Telehealth Platform: [employer] Location of provider rendering services: practice address Location of patient: address on file Patient Identification confirmed using: Name, : Yes Telehealth method: video Patient verbally consented to treatment: Yes Patient verbally consented to billing insurance company: Yes Patient informed of any privacy concerns related to visit: Yes Minutes spent on Phone/Video with Pt.: 12 Assessment & Plan Assessment & Plan (1) Fatigue: Code(s): R53.83 - Other fatigue Category: Medical (2) Early satiety: Code(s): R68.81 - Early satiety Category: Medical (3) Bloating: Code(s): R14.0 - Abdominal distension (gaseous) Category: Medical (4) Irritable bowel syndrome with diarrhea: Code(s): K58.0 - Irritable bowel syndrome with diarrhea Category: Medical Plan . Orders: Orders Testosterone, Free/Total Today R53.83 - Other fatigue Referrals Gastroenterology Referral K58.0 - Irritable bowel syndrome with diarrhea, R14.0 - Abdominal distension (gaseous), R68.81 - Early satiety Coding Level of Care Code Tele Est Pt Level 3 (50787) Diagnoses Fatigue R53.83 Early satiety R68.81 Bloating R14.0 Irritable bowel syndrome with diarrhea K58.0
--- OUTSIDE RECORDS SUMMARY | 2024-10-05 12:16 | XMS_ITS | Continuity of Care Document ---
Author Name [facility] Organization [facility] Care Team Providers Care Readers' Advisory Service Librarian Name Role Phone [facility] Unavailable Unavailable Problems Combined list of problems from Department of Defense and Veterans Affairs facilities. It does not include entries that were removed or entered in error. Problem Status Onset Date Problem Type Date of Resolution Comments Source conjunctivitis Inactive Condition [facility] sore throat Inactive Condition [facility] Patient Education - Medication Active Condition DoD irritable bowel syndrome Active Condition DoD muscle aches, generalized (myalgia) Active Condition DoD Outpatient Physician Consultation Active Condition DoD influenza Inactive Condition DoD upper respiratory infection Inactive Condition [facility] pruritus ani Inactive Condition DoD current smoker Active Condition DoD abdominal pain Active Condition DoD conjunctivitis acute bacterial Inactive Condition DoD patient activity at time of event - volleyball Active Condition DoD joint pain in the toes Inactive Condition DoD nicotine dependence Active Condition Do D Patient Education Active Condition DoD visit for: administrative purpose Inactive Condition [facility] pectus excavatum Active Condition DoD nausea with vomiting Inactive Condition [facility] nicotine dependence continuous Active Condition DoD generalized pain Active Condition [facility] sore throat Inactive Condition DoD gastroenteritis Active Condition [facility] Patient Counseling: Inactive Condition D oD visit [...] Site Reaction Lot Number CVX Code Drug [employer] Executive Director Status Comments Source influenza virus vaccine, inactivated 2023 LAILA Haley tea, right (delt oid) [id number] [employer] complet ed influenza virus vaccine, inactivat ed 07/06/24 Given [id number]-[id number] 04 MDG influenza, injectable, quadrivalent 2020 [id number] 158 GlaxoSmithKli ne complet ed influenza , injectabl e, quadrival ent 06/03/21 Given Ambulat ory Pharmac y influenza, injectable, quadrivalent, contains preservative 8 2020 [id number] 158 [facility] (SKB) complet ed influenza , injectabl e, quadrival ent, contains preservat maria DoD COVID Vaccine Moderna 2020 [id number] complet ed COVID Vaccine Moderna 11/09/20 Given Ambulat ory Pharmac y SARS-COV-2 (COVID-19) vaccine, mRNA, spike protein, LNP, preservative free, 100 mcg or 50 mcg dose 2 2020 [id number] 207 Moderna Maxcyte, Inc. (MOD) complet ed SARS-COV- 2 (COVID-19 ) vaccine, mRNA, spike protein, LNP, preservat maria free, 100 mcg or 50 mcg dose DoD COVID Vaccine Moderna 2020 [id number] 207 complet ed COVID Vaccine Moderna 10/07/20 Given Ambulat ory Pharmac y SARS-COV-2 (COVID-19) vaccine, mRNA, spike protein, LNP, preservative free, 100 mcg or 50 mcg dose 1 2020 [id number] 207 Moderna [employer]cyte[employer] Inc. (MOD) complet ed SARS-COV- 2 (COVID-19 ) vaccine, mRNA, spike protein, LNP, preservat maria free, 100 mcg or 50 mcg dose DoD influenza, injectable, quadrivalent- pf 2019 [id number] 077 150 Seqirus complet ed influenza , injectabl e, quadrival ent-pf 06/11/20 Given Ambulat ory Pharmac y Influenza, injectable, quadrivalent, preservative free 1 2019 [id number] 077 150 Seqirus (SEQ) complet ed Influenza , injectabl e, quadrival ent, preservat maria free DoD influenza, injectable, quadrivalent- pf 2018 [id number] 150 Se[employer]irus complet ed influenza , injectabl e, quadrival ent-pf 05/02/19 Given Ambulat ory Pharmac y Influenza, injectable, quadrivalent, preservative free 1 2018 [id number] 520 150 Se[employer]irus (SEQ) complet ed Influenza , injectabl e, quadrival ent, preservat maria free DoD influenza, injectable, quadrivalent 2017 [id number] 158 Se[employer] complet ed influenza , injectabl e, quadrival ent 06/27/18 Given Ambulat ory Pharmac y influenza, injectable, quadrivalent, contains preservative 11 2017 [id number] 158 Seqirus (SEQ) comple t ed influenza , injectabl e, quadrival ent, contains preservat maria DoD measles/mumps /rubella virus vaccine 2017 [id number] 03 Merck & Company Inc complet ed measles/m umps/rube lla virus vaccine 12/27/17 Given Ambulat ory Pharmac y typhoid Vi capsular polysaccharid e vac 2017 [id number] 101 sanofi pasteur complet ed typhoid Vi capsular polysacch aride vac 12/27/17 Given Ambulat ory Pharmac y measles, mumps and rubella virus vaccine 1 2017 [id number] 03 Merck (MSD) complet ed measles, mumps and rubella virus vaccine DoD typhoid Vi capsular polysaccharid e vaccine 1 2017 [id number] 101 Sanofi Pasteur (PMC) complet ed typhoid Vi capsular polysacch aride vaccine DoD measles/mumps /rubella virus vaccine 2017 [id number] 03 Merck & Company Inc complet ed measles/m umps/rube lla virus vaccine 11/29/17 Given Ambulat ory Pharmac y measles, mumps and rubella virus vaccine 1 2017 [id number] 03 Merck (MSD) complet ed measles, mumps and rubella virus vaccine DoD tetanus, diphtheria, acellular pertu is 2017 [id number] 115 GlaxoSmithKli ne complet ed tetanus, diphtheri a, acellular pertussis 09/27/17 Given Ambulat ory Pharmac y tetanus toxoid, reduced diphtheria toxoid, and acellular pertu is vaccine, adsorbed 2 2017 [id number] 115 [employer] (SKB) complet ed tetanus toxoid, reduced diphtheri a toxoid, and acellular pertussis vaccine, adsorbed DoD Influenza, inj, MDCK, quadrivalent- pf [id number] 171 Seqirus complet ed Influenza , inj, MDCK, quadrival ent-pf 05/11/17 Given Ambulat ory Pharmac y Influenza, injectable, Madin Sandra Canine Kidney, preservative free, quadrivalent 1 [id number] 171 Seqirus (SEQ) comple t ed Influenza , injectabl e, Madin [place] Canine Kidney, preservat maria free, quadrival ent DoD influenza, seasonal, injectable-pf 2015 [id number] 140 Seqirus complet ed influenza , seasonal, injectabl e-pf 06/29/16 Given Ambulat ory Pharmac y Influenza, seasonal, injectable, preservative free 9 2015 [id number] 140 Seqirus (SEQ) comple t ed Influenza , seasonal, injectabl e, preservat maria free DoD influenza, seasonal, injectable 2014 [id number] 1A [facility] , seasonal, injectabl e 04/30/15 Given Ambulat ory Pharmac y Influenza, seasonal, injectable 1 2014 [id number] [id number] [address] [facility] [employer] Inc. (CSL) complet ed Influenza , seasonal, injectabl e DoD Influenza, injectable, MDCK-pf 2013 [id number] 153 Novartis Pharmaceutica ls complet ed Influenza , injectabl e, MDCK-pf 04/30/14 Given Ambulat ory Pharmac y Influenza, injectable, Madin [place] Canine Kidney, preservative free 7 2013 [id number] 153 Novartis Suzerein Solutionstica l Aldo. (NOV) complet ed Influenza , injectabl e, Madin Sandra Canine Kidney, preservat maria free DoD influenza, live, intranasal,qu adrivalent 2012 [id number] 149 Medimmune Inc comple t ed influenza , live, intranasa l,quadriv alent 05/12/13 Given Ambulat ory Pharmac y influenza, live, intranasal, quadrivalent 6 2012 [id number] 149 MedImmune, Inc. (MED) complet ed influenza , live, intranasa l, quadrival ent DoD measles virus vaccine 0 2012 05 () Not Given measles virus vaccine DoD rubella virus vaccine 0 2012 06 () Not Given rubella virus vaccine DoD influenza virus vaccine, live 2011 [id number] 111 Medimmune Inc comple t ed influenza virus vaccine, live 05/08/12 Given Ambulat ory Pharmac y influenza virus vaccine, live, attenuated, for intranasal use 5 2011 [id number] 111 Confovis, Inc. (MED) complet ed influenza virus vaccine, live, attenuate d, for intranasa l use DoD influenza virus vaccine, live 2010 [id number] 111 Medimmune Inc comple t ed influenza virus vaccine, live 05/15/11 Given Ambulat ory Pharmac y influenza virus vaccine, live, attenuated, for intranasal use 1 2010 [id number] 111 MedImmune, Inc. (MED) complet ed influenza virus vaccine, live, attenuate d, for intranasa l use DoD influenza virus vaccine, live 2009 [id number] 111 Medimmune Inc comple t ed influenza virus vaccine, live 06/04/10 Given Ambulat ory Pharmac y influenza virus vaccine, live, attenuated, for intranasal use 1 2009 [id number] 111 MedImmune, Inc. (MED) complet ed influenza virus vaccine, live, attenuate d, for intranasa l use DoD Novel influenza-H1N 1-09, injectable 2009 [id number] 1A 127 Novartis Pharmaceutica complet ed Novel influenza -K3J8-15, injectabl e 08/09/09 Given Ambulat ory Pharmac y Novel influenza-H1N 1-09, injectable 1 2009 [id number] 1A 127 Novartis Pharmaceutica l Aldo. (NOV) complet ed Novel influenza -J3O7-24, injectabl e DoD influenza virus vaccine, live 2008 [id number] 111 Medimmune Inc comple t ed influenza virus vaccine, live 04/19/09 Given Ambulat ory Pharmac y influenza virus vaccine, live, attenuated, for intranasal use 1 2008 [id number] 111 MedImmune, Inc. (MED) complet ed influenza virus vaccine, live, attenuate d, for intranasa l use DoD hepatitis A-hepatitis B vaccine 2008 [id number] 5AA 104 GlaxoSmithKli ne complet ed hepatitis A-hepatit is B vaccine 11/22/08 Given Ambulat ory Pharmac y hepatitis A and hepatitis B vaccine 3 2008 [id number] [facility] A and hepatitis B vaccine DoD hepatitis A-hepatitis B vaccine 2007 [id number] 2AC 104 GlaxoSmithKli ne complet ed hepatitis A-hepatit is B vaccine 05/16/08 Given Ambulat ory Pharmac y influenza virus vaccine,split 2007 [id number] 1A 15 CSL Behring complet ed influenza virus vaccine,s plit 05/16/08 Given Ambulat ory Pharmac y influenza virus vaccine, split virus (incl. purified surface antigen)-reti red CODE 1 2007 [id number] 1A 15 [employer]SL [employer]. (CSL) complet ed influenza virus vaccine, split virus (incl. purified surface antigen)- retired CODE DoD hepatitis A and hepatitis B vaccine 2 2007 [id number] 2AC 104 SmithKline (SKB) complet ed hepatitis A and hepatitis B vaccine DoD hepatitis A-hepatitis B vaccine 2007 [id number] 3AA 104 GlaxYee CareithKli ne complet ed hepatitis A-hepatit is B vaccine 04/13/08 Given Ambulat ory Pharmac y measles, mumps and rubella virus vaccine 1 2007 03 () Not Given measles, mumps and rubella virus vaccine DoD varicella virus vaccine 1 2007 21 () Not Given varicella virus vaccine DoD hepatitis A and hepatitis B vaccine 1 2007 [id number] 3AA 104 SmithEarnestine (SKB) complet ed hepatitis A and hepatitis B vaccine DoD tuberculin purified protein derivative 2007 [id number] 96 sanofi pasteur complet ed tuberculi n purified protein derivativ e 04/10/08 Given Ambulat ory Pharmac y tetanus, diphtheria, acellular pertu is 2007 [id number] 115 sanofi pasteur complet ed tetanus, diphtheri a, acellular pertussis 04/08/08 Given Ambulat ory Pharmac y poliovirus vaccine, inactivated 2007 [id number] 10 sanofi pasteur complet ed polioviru s vaccine, inactivat ed 04/08/08 Given Ambulat ory Pharmac y meningococcal A,C,Y,W-135 (MCV4P) 2007 [id number] 114 sanofi pasteur complet ed meningoco ccal A,C,Y,W-1 35 (MCV4P) 04/08/08 Given Ambulat ory Pharmac y poliovirus vaccine, inactivated 1 2007 [id number] 10 Sanofi Pasteur (PMC) complet ed polioviru s vaccine, inactivat ed DoD meningococcal polysaccharid e (groups A, C, Y and W-135) diphtheria toxoid conjugate vaccine (MCV4P) 1 2007 [id number] 114 Sanofi Pasteur (PMC) complet ed meningoco ccal polysacch aride (groups A, C, Y and W-135) diphtheri a toxoid conjugate vaccine (MCV4P) DoD tetanus toxoid, reduced diphtheria toxoid, and acellular pertu is vaccine, adsorbed 1 2007 [id number] 115 Sanofi Pasteur (PMC) complet ed tetanus toxoid, reduced diphtheri a toxoid, and acellular pertussis vaccine, adsorbed DoD Encounters Combined list of: 1) Encounters from Department of Veterans Affairs facilities going backup to the last 18 months, not all VA inpatient encounters are included; 2) Encounters from the Department of Defense facilities going backup to 280 months. Location Location Details Encounter Type Encounter Number Reason For Visit Attending Provider ADM Date DC Date Status Disposition Source [facility] DENTAL [id number] sick call MIGUEL ANGEL PATEL 06/06 Released w/o Limitations [facility]) DENTAL [id number] iv sed 3rds ALEJO BARRIOS 06/06 [facility] DENTAL [id number] Iv Sedatio n 3rds CHE NEGRON 06/08 [facility](PHA [facility]) OUTPATIENT [id number] FTAC RAVIN JO 11/22 Released w/o Limitations [facility](P NOLAN Cell) [facility](FP Rok II) OUTPATIENT [id number] states nausea and diarrhe a JANET BOYLE 02/21 Released w/o Limitations [facility](F P Rok II) [facility] DENTAL [id number] sickcal l MIKE ROD 05/[facility]) DENTAL [id number] MIGUEL ANGEL [place] 06/19 Released w/o Limitations [facility](FP Rok I) TELE CONSULT [id number] fever, vomitin g since yesterd ay, headach e, sore throat [phone] ANDREA JON 10/03 [facility] Group(F P Rok I) [facility] Group(FP Rok I) OUTPATIENT [id number] AD w/ chills/ sore throat/ nausea DEANNE FLOYD 10/03 Released w/o Limitations [facility](F P Rok I) [facility]) OUTPATIENT [id number] pha-314 SERGE JENSEN 01/19 Released w/o Limitations [facility](P NOLAN Cell) [facility](FP Rok I) OUTPATIENT [id number] uncomfo rtable breathi ng JANIS BONE 05/23 Released w/o Limitations [facility](F P Rok I) [facility] TELE CONSULT [id number] Appt with JUAN Rocha 05/23 Medical Group([facility]) [facility](FP Rok I) TELE CONSULT [id number] cxr results JANIS BONE 05/23 [facility] Group(F P Rok I) [facility](FP Rok II) OUTPATIENT [id number] PATEL MARCUM 06/13 Released w/o Limitations [facility](F P Rok II) [facility] Rok II) OUTPATIENT [id number] tobacco cessati on TAQUERIA AGUILA 08/22 Released w/o Limitations [facility](F P Rok II) [facility](FP Rok I) OUTPATIENT [id number] swollen lt big toe JANIS BONE 10/18 Released w/o Limitations [facility](F P Rok I) [facility]) OUTPATIENT [id number] PHA ORA DEGROOT 01/21 Released w/o Limitations [facility](P NOLAN Cell) [facility]) OUTPATIENT [id number] os red eye JAZMIN PRECIADO 03/20 Released w/o Limitations [facility](O ptometr y Service s) [facility]([place] [facility] ROK 2) TELE CONSULT [id number] Notes Entered by: RANDALL ,LANEY 14 Oct 2011 0912 ------- ------- ------- ------- -- AC. Pt c/o vomitin g/diarr hea.... [phone] DEANNE EDWARDS Jose Alfredo 10/13 Medical Group([facility] 2) Medical Group([facility] 2) OUTPATIENT [id number] abdomin al pain CARON ZAMUDIO 07/24 Released w/o Limitations [facility] RO 2) [facility] Group([facility] 2) OUTPATIENT [id number] abdomin al pain PIETER DONG 07/31 Released w/o Limitations [facility] 2) Medical [facility] 2) OUTPATIENT [id number] cough/c ongesti on/head ache BHARATH EDWARDSCATHLEEN Veliz 08/19 Released w/o Limitations [facility] 2) Medical [facility] 2) OUTPATIENT [id number] dizzine ss/ligh t headed/ chills PIETER DONG 08/26 Released w/o Limitations Medical [facility] RO 2) Medical [facility] 2) TELE CONSULT [id number] Notes Entered by: YONG MARTINEZ 26 Aug 2012 1326 ------- ------- ------- ------- -- Needs f/u appt abd pain/ab n fecal fat ART TRIANA 08/26 Medical Group([facility] 2) [facility] Cell) OUTPATIENT [id number] PHA ISAIAH CORADO 09/03 Released w/o Limitations [facility](P NOLAN Cell) Medical [facility] 2) OUTPATIENT [id number] f/u abd pain and adn fecal fat PIETER DONG 09/16 Released w/o Limitations [facility] ROK 2) Medical Group([facility] ROK 2) TELE CONSULT [id number] Notes Entered by: BHAVIN HUMPHRIES 24 Nov 2012 1245 ------- ------- ------- ------- -- NETWORK RESULTS - GASTRO - 11/07 PIETER DONG 11/24 Medical Group([facility] ROK 2) Medical Group([facility] ROK 2) TELE CONSULT [id number] Notes Entered by: WILL IZAGUIRRE 27 Nov 2012 1403 ------- ------- ------- ------- -- Network Results - Gastroe nterolo gy 12/07 PIETER DONG 11/27 Medical Group([facility] ROK 2) Medical Group([facility] ROK 2) OUTPATIENT [id number] cold symptom s PIETER DONG 04/13 Released w/o Limitations [facility] ROK 2) Medical [facility] ROK 2) OUTPATIENT [id number] congest ion/cou gh PIETER DONG 08/17 Released w/o Limitations [facility] ROK 2) Medical Group([facility] ROK 2) OUTPATIENT [id number] DEANNE August 08/26 Released w/o Limitations [facility] ROK 2) Medical Group([facility] ROK 2) OUTPATIENT [id number] Notes Entered by: BOZENA ABDI 10 Sep 2013 0954 ------- ------- ------- ------- -- throat culture CASSIA SCHULTE 09/10 Released w/o Limitations [facility] ROK 2) [facility] 2) OUTPATIENT [id number] pink eye DEANNE EDWARDS 09/14 Released w/o Limitations [facility] ROK 2) [facility] 2) TELE CONSULT [id number] Notes Entered by: Vera SANTOYO 20 Sep 2013 1536 ------- ------- ------- ------- -- Ac. Michel cardona pt need med refill for chantix ...[phone] LESLY CRUZ 09/20 Medical Group([facility] 2) [facility]) OUTPATIENT [id number] PHA-LIP CHEYENNE MCKEON 09/30 Released w/o Limitations [facility](P NLOAN Cell) [facility] 2) OUTPATIENT [id number] stomach /vomiti ng and diarrhe CORDELL Alvarado 10/27 Sick at Home/Quarter s [facility] 2) Medical Group(In and Out Processin g Vera ) TELE CONSULT [id number] Notes Entered by: Bree FAUSTIN 21 Jan 2014 0740 ------- ------- ------- ------- -- Out-pro cessing CHAU FAUSTIN 01/21 Medical Group(I n and Out Process ing Vera ) Medical [facility] 2) OUTPATIENT [id number] mole eval/re moval-r PIETER Cabrera 02/08 Released w/o Limitations [facility] 2) [facility] Group([facility] 2) TELE CONSULT [id number] Notes Entered by: YONG MARTINEZ 16 Feb 2014 0715 ------- ------- ------- ------- -- Tissue results MUSA BOYKIN 02/16 [facility](Vera pepe [facility] ROK 2) [facility]) OUTPATIENT [id number] Notes Entered by: Pawel ZALDIVAR V 29 May 2016 1228 ------- ------- ------- ------- -- Sinus Pressur e 364TRS JUSTINA SANDRA Vera 05/29 Sick at Home/Quarter s [employer] [facility]( [email or web address] [facility] ) [facility]) OUTPATIENT [id number] Sinus Congest ion c1gwtnh s 364TRS SHANICE MONTELONGO Vera 06/14 Released w/o Limitations [facility]) [place] [address](AFN G 104 Med Sq-FM) OUTPATIENT [id number] Notes Entered by: OLY MOHR 29 Dec 2016 1518 ------- ------- ------- ------- -- [employer] ice VITOR POLLARD 12/29 Released w/o Limitations [facility] [place] [address](A FNG 104 Med Sq-FM) [place] [address](AFN G 104 Med Sq-FM) OUTPATIENT [id number] Notes Entered by: OLY MOHR 28 Aug 2017 1409 ------- ------- ------- ------- -- TARUNQ VITOR MOHR 08/28 Released w/o Limitations [facility] [place] [address](A FNG 104 Med Sq-FM) [place] [address](AFN G 104 Med Sq-FM) OUTPATIENT [id number] Notes Entered by: HARRY DWYER 19 Sep 2017 1625 ------- ------- ------- ------- -- Deploye HERNANDEZ Gray 09/19 Released w/o Limitations [facility] [place] [address](A FNG 104 Med Sq-FM) [place] [address](AFN G 104 Med Sq-PH) OUTPATIENT [id number] Notes Entered by: HARRY DWYER 22 Jan 2018 0909 ------- ------- ------- ------- -- Pre-Dep loyment / Occupat [facility] VITOR MOHR 01/22 [facility]ased w/o Limitations [facility] [place] [address](A FNG 104 Med Sq-PH) [place] [address](AFN G 104 Med Sq-FM) OUTPATIENT [id number] Notes Entered by: MARÍA RODRIGUEZ 26 Sep 2018 1317 ------- ------- ------- ------- -- Audiogr HERNANDEZ Sorenson 09/26 Released w/o Limitations [facility] [place] [address](A FNG 104 Med Sq-FM) [place] [address](AFN G 104 Med Sq-FM) OUTPATIENT [id number] Notes Entered by: OLY MOHR 28 Aug 2019 1419 ------- ------- ------- ------- -- VITOR POLLARD 08/28 Released w/o Limitations [facility] [place] [address](A FNG 104 Med Sq-FM) [place] [address](AFN G 104 Med Sq-FM) OUTPATIENT [id number] Notes Entered by: ALVA NOLASCO 18 Feb 2020 0949 ------- ------- ------- ------- -- TAYLOR1 ALVA NOLASCOGIOVANNY 02/17 Released w/o Limitations [facility] [place] [address](A FNG 104 Med Sq-FM) [place] [address](AFN G 104 Med Sq-FM) OUTPATIENT [id number] Notes Entered by: ALVA NOLASCO TOMMY 14 Jun 2020 1630 ------- ------- ------- ------- -- TAYLOR2 ALVA NOLASCOGIOVANNY 06/14 Released w/o Limitations [facility] [place] [address](A FNG 104 Med Sq-FM) [facility], [place] [address](AFN G 104 Med Sq-FM) OUTPATIENT [id number] ALVA NOLASCO TOMMY 09/26 Released w/o Limitations [facility] [place] [address](A FNG 104 Med Sq-FM) [facility], [place] [address](AFN G 104 Med Sq-FM) OUTPATIENT [id number] Notes Entered by: ALVA NOLASCO TOMMY 06 Oct 2020 1036 ------- ------- ------- ------- -- ALDO ALVA NOLASCO TOMMY 10/06 Released w/o Limitations [facility] [place] [address](A FNG 104 Med Sq-FM) [place] [address](AFN G 104 Med Sq-FM) TELE CONSULT [id number] ALVA NOLASCO TOMMY 10/27 [facility] [place] [address](A FNG 104 Med Sq-FM) [facility], [facility](AFN G 104 Med Sq-FM) OUTPATIENT [id number] Notes Entered by: BRENDA MARTINEZ 03 Oct 2021 1459 ------- ------- ------- ------- -- PHAQ JUAN JEREMY R 10/03 Released w/o Limitations [facility] [place] [address](A FNG 104 Med Sq-FM) [place] [address](AFN G 104 Med Sq-FM) OUTPATIENT [id number] Notes Entered by: CASIMIRO VELAZQUEZ 04 Oct 2021 1153 ------- ------- ------- ------- -- Audiogr am/PHAQ /TAYLOR1 JUAN JEREMY R 10/04 Released w/o Limitations [facility] [place] [place] [address](A FNG 104 Med Sq-FM) 8203R-104 MDG Between Visit [id number] 06/08 Discharge Disposition: Home or Self Care 8203R-1 04 MDG 8203R-104 MDG Between Visit [id number] 06/11 Discharge Disposition: Home or Self Care 8203R-1 04 MDG 8203R-104 MDG [place] Vaccine [id number] 07/03 Discharge Disposition: Home or Self Care 8203R-1 04 MDG 8203R-104 MDG Between Visit [id number] 07/06 Discharge Disposition: Home or Self Care 8203R-1 04 MDG 8203R-104 MDG [place] Vaccine [id number] 07/06 8203R-1 04 MDG Procedures Combined list [...] UNLESS OTHERWISE LISTED; SINGLE LESION 02/09/20 14 DoD SURGICAL BOOT/SHOE, EACH 10/19/19 11 [facility] TOBACCO USE CESSATION INTERVENTION, COUNSELING (COPD, CAP, CAD, ASTHMA) (DM) (PV) 06/13/20 10 [facility] SCREENING TEST, PURE TONE, AIR ONLY 01/20/20 10 [facility] SCREENING TEST, PURE TONE, AIR ONLY 11/23/19 09 [facility] Biopsy Skin Biopsy Skin [id number] 02/09/20 14 PIETER DONG [facility] Surgical boot/shoe, each 10/19/19 11 JANIS BONE [facility] Orthopedic Strapping Foot Orthopedic Strapping Foot [id number] 10/19/19 11 JANIS BONE [facility] Intervention And Counseling On Ce ation Of Tobacco Use Intervention And Counseling On Cessation Of Tobacco Use 4000F 06/13/20 10 PATEL CURIEL [facility] Audiogram (Screening) Audiogram (Screening) 92609 01/20/20 10 SERGE JENSEN DD FORM [id number] [facility] Audiogram (Screening) Audiogram (Screening) 22583 11/23/19 09 RAVIN JO DD FORM [id number] [facility] Social History Combined list of available smoking, tobacco, and other social history from Department of Defense and Veterans Affairs facilities. Social History Type Response Date Comment Sour e This section is an empty social history section. [facility] Assessment and Plan Combined list of future care activities from Department of Defense and Veterans Affairs facilities (e.g., assessment and plan notes, appointments, orders, and referrals). Additional future care activities may be listed in the Plan of Care section. Result Assessment and Plan Date Source Assessment and Plan No data available for this section 10/05/2024 Ambulatory Pharmacy Functional Status Combined list of recent functional and cognitive assessments recorded at [facility] Defense and [facility] ([place] Functional [place] Measurement (FIM) Scale: 1 = Total Assistance (Subject = 0% +), 2 = Maximal Assistance (Subject = 25% +), 3 = Moderate Assistance (Subject = 50% +), 4 = Minimal Assistance (Subject = 75% +), 5 = Supervision, 6 = Modified [place] (Device), 7 = Complete [place] (Timely, Safely). Assessment Date/Time Source Assessment Type Assessment Skill Assessment Score Assessment Details No data available for this section
== END 2024-10-05 10:22 | disposition home or self-care (01) ==
LOC: HO.HMCC 10:22
PROVIDERS: PCP Nurse Practitioner Family; Visit Provider Nurse Practitioner Family
DX: R53.83 Other fatigue (principal); R68.81 Early satiety; R14.0 Abdominal distension (gaseous); K58.0 Irritable bowel syndrome with diarrhea

== ENCOUNTER → 2024-10-05 10:22 | Outpatient (BNVA) | payer OTHER, SELFPAY | PROVIDERS: PCP Nurse Practitioner Family; Visit Provider Nurse Practitioner Family | DX: R68.81 Early satiety (principal); R14.0 Abdominal distension (gaseous); K58.0 Irritable bowel syndrome with diarrhea; R53.83 Other fatigue ==

== ENCOUNTER 2024-10-08 11:54 | Outpatient (REF) | payer OTHER, SELFPAY ==
[2024-10-08 12:17] LABS: MANUAL DIFF FLAG NO
[2024-10-08 12:24] LABS: Basophils Percent Auto 0.5 % (0-2); Eosinophils Absolute Auto 0.1 X10*3/uL (0.0-0.4); Eosinophils Percent Auto 0.9 % (0-4); Hematocrit 46.9 % (42.0-52.0); Hemoglobin 15.8 g/dl (14.0-18.0); Imm Gran Abs Auto 0.02 X10*3/uL (0.00-0.03); Imm Gran Pct Auto 0.3 % (0.0-0.4); Lymphocytes Absolute Auto 1.5 X10*3/uL (1.2-4.9); Lymphocytes Percent Auto 23.2 % (20-40); Mean Corpuscular HGB Conc 33.7 g/dl (31.0-36.0); Mean Corpuscular Hemoglobin 28.4 pg (27.0-33.0); Mean Corpuscular Volume 84.4 fL (80.0-98.0); Monocytes Absolute Auto 0.4 X10*3/uL (0.1-1.2); Monocytes Percent Auto 6.3 % (2-11); Neutrophils Absolute Auto 4.4 x10*3/uL (2.0-8.3); Neutrophils Percent Auto 68.8 % (45-73); Platelet Count 326 X10*3/uL (160-400); Red Blood Count 5.56 X10*6/uL (4.60-5.80); Red Cell Distribution Width 12.3 % (11.0-16.0); White Blood Count 6.4 X10*3/uL (4.8-10.8)
[2024-10-08 13:04] LABS: Alanine Aminotransferase 53 U/L (0-40); Albumin Level 4.2 g/dL (3.5-5.0); Alkaline Phosphatase 76 U/L (39-117); Anion Gap 12 (12-20); Aspartate Amino Transferase 25 U/L (5-37); Bilirubin Total 1.8 mg/dL (0.0-1.0); Blood Urea Nitrogen 12 mg/dL (9-16); C Reactive Protein < 0.04 mg/dL (< or = 0.50); Calcium 9.3 mg/dL (8.4-10.2); Carbon Dioxide 28 mmol/L (22-29); Chloride 106 mmol/L (96-108); Cholesterol 200 mg/dL (<200); Erythrocyte Sedimentation Rate 2 MM/HR (0-15); Estimated Glomerular Filt Rate > 60; Glucose Fasting 93 mg/dL (60-99); HDL Cholesterol 37 mg/dL (>40); LDL Cholesterol Calculated 144 mg/dL (<100); Potassium 4.1 mmol/L (3.3-5.1); Sodium 142 mmol/L (135-145); Total Protein 7.2 g/dL (6.5-8.0); Triglycerides 99 mg/dL (<150)
[2024-10-08 13:17] LABS: TSH reflex Free T4 1.17 uIU/mL (0.32-4.0)
--- OUTSIDE RECORDS SUMMARY | 2024-10-08 13:44 | XMS_ITS | Continuity of Care Document ---
Author Name [facility] Organization [facility] Care Team Providers Care International Coordinator Name Role Phone [facility] Unavailable Unavailable Immunizations Combined list of available immunizations from the Department of Defense and Veterans Affairs facilities. Immunization Series Date Given Administered By Site Reaction Lot Number CVX Code Drug [employer] Status Comments Source influenza virus vaccine, inactivated 2023 LAILA T Shoul tea, right (delt oid) [id number] [employer], [employer] complet ed influenza virus vaccine, inactivat ed 07/06/24 Given 8203R-1 04 MDG influenza, injectable, quadrivalent 2020 [id number] IPGKli ne complet ed influenza , injectabl e, quadrival ent 06/03/21 Given Ambulat ory Pharmac y COVID Vaccine Moderna 2020 [id number] complet ed COVID Vaccine Moderna 11/09/20 Given Ambulat ory Pharmac y COVID Vaccine Moderna 2020 [id number] complet ed COVID Vaccine Moderna 10/07/20 Given Ambulat ory Pharmac y influenza, injectable, quadrivalent- pf 2019 [id number] 150 Seqirus complet ed influenza , injectabl e, quadrival ent-pf 06/11/20 Given Ambulat ory Pharmac y influenza, injectable, quadrivalent- pf 2018 [id number] 150 Seqirus complet ed influenza , injectabl e, quadrival ent-pf 05/02/19 Given Ambulat ory Pharmac y influenza, injectable, quadrivalent 2017 [id number] Seqirus complet ed influenza , injectabl e, quadrival ent 06/27/18 Given Ambulat ory Pharmac y measles/mumps /rubella virus vaccine 2017 [id number] Merck [employer] Company Inc complet ed measles/m umps/rube lla virus vaccine 12/27/17 Given Ambulat ory Pharmac y typhoid Vi capsular polysaccharid e vac 2017 [id number] 101 sanofi pasteur complet ed typhoid Vi capsular polysacch aride vac 12/27/17 Given Ambulat ory Pharmac y measles/mumps /rubella virus vaccine 2017 [id number] Merck [employer] Company Inc complet ed measles/m umps/rube lla virus vaccine 11/29/17 Given Ambulat ory Pharmac y tetanus, diphtheria, acellular pertu is 2017 [id number] 115 GlaxoSmithKli ne complet ed tetanus, diphtheri a, acellular pertussis 09/27/17 Given Ambulat ory Pharmac y Influenza, inj, MDCK, quadrivalent- pf 2016 [id number] Seqirus complet ed Influenza , inj, MDCK, quadrival ent-pf 05/11/17 Given Ambulat ory Pharmac y influenza, seasonal, injectable-pf 2015 [id number] Seqirus complet ed influenza , seasonal, injectabl e-pf 06/29/16 Given Ambulat ory Pharmac y influenza, seasonal, injectable 2014 [id number] 141 CSL Behring complet ed influenza , seasonal, injectabl e 04/30/15 Given Ambulat ory Pharmac y Influenza, injectable, MDCK-pf 2013 [id number] Novartis Pharmaceutica ls complet ed Influenza , injectabl e, MDCK-pf 04/30/14 Given Ambulat ory Pharmac y influenza, live, intranasal,qu adrivalent 2012 [id number] Medimmune Inc comple t ed influenza , live, intranasa l,quadriv alent 05/12/13 Given Ambulat ory Pharmac y influenza virus vaccine, live 2011 [id number] 111 Medimmune Inc comple t ed influenza virus vaccine, live 05/08/12 Given Ambulat ory Pharmac y influenza virus vaccine, live 2010 [id number] 111 Medimmune Inc comple t ed influenza virus vaccine, live 05/15/11 Given Ambulat ory Pharmac y influenza virus vaccine, live 2009 [id number] 111 Med[employer] Inc comple t ed influenza virus vaccine, live 06/04/10 Given Ambulat ory Pharmac y Novel influenza-H1N 1-09, injectable 2009 [id number] 127 Novartis Pharmaceutica ls complet ed Novel influenza -T5G4-44, injectabl e 08/09/09 Given Ambulat ory Pharmac y influenza virus vaccine, live [address] [id number] [employer] comple t ed influenza virus vaccine, live 04/19/09 Given Ambulat ory Pharmac y hepatitis A-hepatitis B vaccine 2008 [id number] 104 GlaxoSmithKli ne complet ed hepatitis A-hepatit is B vaccine 11/22/08 Given Ambulat ory Pharmac y hepatitis A-hepatitis B vaccine 2007 [id number] 104 GlaxoSmithKli ne complet ed hepatitis A-hepatit is B vaccine 05/16/08 Given Ambulat ory Pharmac y influenza virus vaccine,split 2007 [id number] 15 CSL Behring complet ed influenza virus vaccine,s plit 05/16/08 Given Ambulat ory Pharmac y hepatitis A-hepatitis B vaccine 2007 [id number] 104 GlaxoSmithKli ne complet ed hepatitis A-hepatit is B vaccine 04/13/08 Given Ambulat ory Pharmac y tuberculin purified protein derivative 2007 [id number] 96 sanofi pasteur complet ed tuberculi n purified protein derivativ e 04/10/08 Given Ambulat ory Pharmac y tetanus, diphtheria, acellular pertu is 2007 [id number] 115 sanofi pasteur complet ed tetanus, diphtheri a, acellular pertussis 04/08/08 Given Ambulat ory Pharmac y poliovirus vaccine, inactivated 2007 [id number] 10 sanofi pasteur complet ed polioviru s vaccine, inactivat ed 04/08/08 Given Ambulat ory Pharmac y meningococcal A,C,Y,W-135 (MCV4P) 2007 [id number] 114 sanofi pasteur complet ed meningoco ccal A,C,Y,W-1 35 (MCV4P) 04/08/08 Given Ambulat ory Pharmac y Encounters Combined list of: 1) Encounters from Department of Veterans Affairs facilities going backup to the last 18 months, not all [facility] inpatient encounters are included; 2) Encounters from the Department of Defense facilities going backup to 280 months. Location Location Details Encounter Type Encounter Number Reason For Visit Attending Provider ADM Date DC Date Status Disposition Source 8203R-104 Between Visit [id number] 06/08 Discharge Disposition: Home or Self Care 8203R-1 04 MDG 8203R-104 MDG Between Visit [id number] 06/11 Discharge Disposition: Home or Self Care 8203R-1 04 MDG 8203R-104 MDG Mass Vaccine [id number] 07/03 Discharge Disposition: Home or Self Care 8203R-1 04 MDG 8203R-104 MDG Between Visit [id number] 07/06 Discharge Disposition: Home or Self Care 8203R-1 04 MDG 8203R-104 MDG Mass Vaccine [id number] 07/06 8203R-1 04 MDG Procedures Combined list of: 1) Procedures from Department of Veterans Affairs facilities going back up to thelast 18 months, not all [place] non-surgical procedures are included; 2) All procedures from the Department of Defense facilities. Procedure Procedure Type Code Date Perfomer Comments Sourc e No data available for this section Ambulatory P harmacy Assessment and Plan Combined list of future care activities from [facility] of Defense and [facility] facilities (e.g., assessment and plan notes, appointments, orders, and referrals). Additional future care activities may be listed in the Plan of Care section. Result Assessment and Plan Date Source Assessment and Plan No data available for this section 10/08/2024 Ambulatory Pharmacy Functional Status Combined list of recent functional and cognitive assessments recorded at [facility] [place] Functional [place] Measurement (FIM) Scale: 1 = Total Assistance (Subject = 0% +), 2 = Maximal Assistance (Subject = 25% +), 3 = Moderate Assistance (Subject = 50% +), 4 = Minimal Assistance (Subject = 75% +), 5 = Supervision, 6 = Modified [place] (Device), 7 = Complete [place] (Timely, Safely). Assessment Date/Time Source Assessment Type Assessment Skill Assessment Score Assessment Details No data available for this section
[2024-10-11 23:04] LABS: Transglutaminase Ab IgG <1.0 U/mL; Transglutaminase IgA <1.0 U/mL
[2024-10-13 01:09] LABS: Endomysial IgA Antibody Negative (Negative)
[2024-10-16 01:49] LABS: Testosterone, Free 56.8 pg/mL (35.0-155.0); Testosterone, Total 334 ng/dL (250-1100)
== END 2024-10-08 11:55 | disposition home or self-care (01) ==
LOC: HO.LAB 11:54
PROVIDERS: PCP Nurse Practitioner Family; Visit Provider Nurse Practitioner Family
DX: K58.0 Irritable bowel syndrome with diarrhea (principal); R14.0 Abdominal distension (gaseous); R68.81 Early satiety; R53.83 Other fatigue
CPT/HCPCS: 36415; 80053; 80061; 84402; 84403; 84443; 85025; 85652; 86140; 86231; 86364

== ENCOUNTER 2024-10-13 15:18 | Outpatient (REF) | payer OTHER, SELFPAY ==
[2024-10-13 16:47] LABS: Immature Retic Fraction 8.3 % (2.3-13.4); Retic HGB Equivalent 32.8 pg (30.0-35.0); Reticulocyte Percent 1.1 % (0.5-1.8); Reticulocytes Absolute 0.055 X10*6/uL (0.026-0.095)
[2024-10-13 16:51] LABS: Appearance Urine Clear; Color Urine Yellow; Glucose Urine UA Negative (Negative); Leukocyte Esterase Urine Negative (Negative); Nitrite Urine Negative (Negative); PH 6.5 (5.0-9.0); Specific Gravity - Urine 1.015 (1.005-1.025); Urine Blood Negative (Negative); Urine Ketones Negative (Negative); Urine Protein Negative (Neg-Trace)
[2024-10-13 17:18] LABS: Haptoglobin 54 mg/dL (14-258)
[2024-10-13 17:23] LABS: Bilirubin Direct 0.4 mg/dL (0.0-0.5); Bilirubin Total 1.6 mg/dL (0.0-1.0); Lactate Dehydrogenase 132 U/L (118-273)
== END 2024-10-13 15:19 | disposition home or self-care (01) ==
LOC: HO.LAB 15:18
PROVIDERS: PCP Nurse Practitioner Family; Visit Provider Nurse Practitioner Family
DX: K58.0 Irritable bowel syndrome with diarrhea (principal); R14.0 Abdominal distension (gaseous); R68.81 Early satiety; R17 Unspecified jaundice
CPT/HCPCS: 36415; 81003; 82247; 82248; 83010; 83615; 85045

== ENCOUNTER 2024-11-16 08:37 | Outpatient (REF) | payer OTHER, SELFPAY ==
--- NOTE | ~2024-11-16 | US_ITS ---
CLINICAL HISTORY: R17 - Unspecified jaundice US abdomen complete Comparison: None Findings: Gallbladder unremarkable, no stone formation or wall thickening. Common duct measures 3 mm. No sonographic Cruz sign. Fatty infiltration of the liver without focal abnormality. Main portal vein patent with normal direction of flow. Pancreas is unremarkable. Aorta and IVC patent and normal in caliber. The right kidney is normal, 10.6 cm in length. No focal abnormality or hydronephrosis. The left kidney is normal, 11.4 cm in length. No focal abnormality or hydronephrosis. The spleen is normal, 11.5 cm in length. No focal abnormality. Impression: Fatty infiltration of the liver, otherwise unremarkable This document has been electronically signed by: Rene Odonnell MD on 11/16/2024 20:23:57
--- OUTSIDE RECORDS SUMMARY | 2024-11-16 08:59 | XMS_ITS | Continuity of Care Document ---
Author Name [facility] Organization [facility] Care Team Providers Care Electrocardiographic Technician Name Role Phone [facility] Unavailable Unavailable Problems Combined list of problems from Department of Defense and Veterans Affairs facilities. It does not include entries that were removed or entered in error. 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 Outpatient Physician Consultation Active Condition DoD INFLUENZA Inactive Condition [facility] UPPER RESPIRATORY INFECTION Inactive Condition [facility] PRURITUS ANI Inactive Condition [facility] current smoker Active Condition DoD abdominal pain Active Condition DoD CONJUNCTIVITIS ACUTE BACTERIAL Inactive Condition DoD patient activity at time of event - volleyball Active Condition DoD joint pain in the toes Inactive Condition DoD NICOTINE DEPENDENCE Active Condition Do D Patient Education Active Condition DoD visit for: administrative purpose Inactive Condition [facility] PECTUS EXCAVATUM Active Condition DoD nausea with vomiting Inactive Condition [facility] NICOTINE DEPENDENCE - CONTINUOUS Active Condition DoD generalized pain Active Condition DoD SORE THROAT Inactive Condition DoD GASTROENTERITIS Active Condition [facility] Patient Counseling: Inactive Condition D oD visit for: services physical Active Condition DoD Allergies, Adverse Reactions, Alerts Combined list of allergies from Department of Defense and Veterans Affairs facilities. It does not include entries that were removed or entered in error. Substance Category Reaction Severity Reaction type Status Date Reported Comments Source No Known Allergies Drug allergy (disorder) active 02/21/2009 Medical Group Immunizations Combined list of available immunizations from the Department of Defense and Veterans Affairs facilities. Immunization Series Date Given Administered By Site Reaction Lot Number CVX Code Drug Esthetician Status Comments Source influenza virus vaccine, inactivated 2023 LAILA Haley tea, right (delt oid) [id number] SeqOxford Immunotec, A [employer] complet ed influenza virus vaccine, inactivat ed 07/06/24 Given 8203R-1 04 MDG influenza, injectable, quadrivalent 2020 [id number] 158 GlaxoSmithKli ne complet ed influenza , injectabl e, quadrival ent 06/03/21 Given Ambulat ory Pharmac y influenza, injectable, quadrivalent, contains preservative 8 2020 [id number] 158 [facility] (SKB) complet ed influenza , injectabl e, quadrival ent, contains preservat maria DoD COVID Vaccine Moderna 2020 [id number] complet ed COVID Vaccine Moderna 11/09/20 Given Ambulat ory Pharmac y SARS-COV-2 (COVID-19) vaccine, mRNA, spike protein, LNP, preservative free, 100 mcg or 50 mcg dose 2 2020 [id number] 207 Moderna [employer] (MOD) complet ed SARS-COV- 2 (COVID-19 ) vaccine, mRNA, spike protein, LNP, preservat maria free, 100 mcg or 50 mcg dose DoD COVID Vaccine Moderna 2020 [id number] complet ed COVID Vaccine Moderna 10/07/20 Given Ambulat ory Pharmac y SARS-COV-2 (COVID-19) vaccine, mRNA, spike protein, LNP, preservative free, 100 mcg or 50 mcg dose 1 2020 [id number] 207 Moderna [employer] (MOD) complet ed SARS-COV- 2 (COVID-19 ) vaccine, mRNA, spike protein, LNP, preservat maria free, 100 mcg or 50 mcg dose DoD influenza, injectable, quadrivalent- pf 2019 [id number] 150 Seqirus complet ed influenza , injectabl e, quadrival ent-pf 06/11/20 Given Ambulat ory Pharmac y Influenza, injectable, quadrivalent, preservative free 1 2019 [id number] 077 150 Seqirus (SEQ) complet ed Influenza , injectabl e, quadrival ent, preservat maria free DoD influenza, injectable, quadrivalent- pf 2018 [id number] 520 150 Seqirus complet ed influenza , injectabl e, quadrival ent-pf 05/02/19 Given Ambulat ory Pharmac y Influenza, injectable, quadrivalent, preservative free 1 2018 [id number] 520 150 Seqirus (SEQ) complet ed Influenza , injectabl e, quadrival ent, preservat maria free DoD influenza, injectable, quadrivalent 2017 [id number] 158 Seqirus complet ed influenza , injectabl e, quadrival ent 06/27/18 Given Ambulat ory Pharmac y influenza, injectable, quadrivalent, contains preservative 11 2017 [id number] 158 Seqirus (SEQ) comple t ed influenza , injectabl e, quadrival ent, contains preservat maria DoD measles/mumps /rubella virus vaccine 2017 [id number] 03 Merck & Company Inc complet ed measles/m umps/rube lla virus vaccine 12/27/17 Given Ambulat ory Pharmac y typhoid Vi capsular polysaccharid e vac 2017 [id number] 101 sanofi pasteur complet ed typhoid Vi capsular polysacch aride vac 12/27/17 Given Ambulat ory Pharmac y measles, mumps and rubella virus vaccine 1 2017 [id number] 03 Merck (MSD) complet ed measles, mumps and rubella virus vaccine DoD typhoid Vi capsular polysaccharid e vaccine 1 2017 [id number] 101 Sanofi Pasteur (PMC) complet ed typhoid Vi capsular polysacch aride vaccine DoD measles/mumps /rubella virus vaccine 2017 [id number] 03 Merck & Company Inc complet ed measles/m umps/rube lla virus vaccine 11/29/17 Given Ambulat ory Pharmac y measles, mumps and rubella virus vaccine 1 2017 [id number] 03 Merck (MSD) complet ed measles, mumps and rubella virus vaccine DoD tetanus, diphtheria, acellular pertu is 2017 [id number] 115 GlaxoSmithKli ne complet ed tetanus, diphtheri a, acellular pertussis 09/27/17 Given Ambulat ory Pharmac y tetanus toxoid, reduced diphtheria toxoid, and acellular pertu is vaccine, adsorbed 2 2017 [id number] 115 [place] ([place] complet ed tetanus toxoid, reduced diphtheri a toxoid, and acellular pertussis vaccine, adsorbed DoD Influenza, inj, MDCK, quadrivalent- pf 2016 [id number] 171 Seqirus complet ed Influenza , inj, MDCK, quadrival ent-pf 05/11/17 Given Ambulat ory Pharmac y Influenza, injectable, Madin [place] Canine Kidney, preservative free, quadrivalent 1 2016 [id number] 171 Seqirus (SEQ) comple t ed Influenza , injectabl e, Madin Sandra Canine Kidney, preservat maria free, quadrival ent DoD influenza, seasonal, injectable-pf 2015 [id number] 140 Seqirus complet ed influenza , seasonal, injectabl e-pf 06/29/16 Given Ambulat ory Pharmac y Influenza, seasonal, injectable, preservative free 9 2015 [id number] 140 Seqirus (SEQ) comple t ed Influenza , seasonal, injectabl e, preservat maria free DoD influenza, seasonal, injectable 2014 [id number] 1A 141 [facility] complet ed influenza , seasonal, injectabl e 04/30/15 Given Ambulat ory Pharmac y Influenza, seasonal, injectable 1 2014 [id number] [id number] 141 [facility] [employer] Inc. (CSL) complet ed Influenza , seasonal, injectabl e DoD Influenza, injectable, MDCK-pf 2013 [id number] 153 Novartis Pharmaceutica complet ed Influenza , injectabl e, MDCK-pf 04/30/14 Given Ambulat ory Pharmac y Influenza, injectable, Madin Sandra Canine Kidney, preservative free 7 2013 [id number] 153 Novartis Pharmaceutica l [place]. (NOV) complet ed Influenza , injectabl e, Madin Sandra Canine Kidney, preservat maria free DoD influenza, live, intranasal,qu adrivalent 2012 [id number] 149 Medimmune Inc comple t ed influenza , live, intranasa l,quadriv alent 05/12/13 Given Ambulat ory Pharmac y influenza, live, intranasal, quadrivalent 6 2012 [id number] 149 MedIOptiMine [employer], Inc. (MED) complet ed influenza , live, intranasa l, quadrival ent DoD measles virus vaccine 0 2012 05 () Not Given measles virus vaccine DoD rubella virus vaccine 0 2012 06 () Not Given rubella virus vaccine DoD influenza virus vaccine, live 2011 [id number] 111 Medimmune Inc comple t ed influenza virus vaccine, live 05/08/12 Given Ambulat ory Pharmac y influenza virus vaccine, live, attenuated, for intranasal use 5 2011 [id number] 111 [employer], Inc. (MED) complet ed influenza virus vaccine, live, attenuate d, for intranasa l use DoD influenza virus vaccine, live 2010 [id number] 111 Mediune Inc comple t ed influenza virus vaccine, live 05/15/11 Given Ambulat ory Pharmac y influenza virus vaccine, live, attenuated, for intranasal use 1 2010 [id number] 111 [facility] (MED) complet ed influenza virus vaccine, live, attenuate d, for intranasa l use DoD influenza virus vaccine, live 2009 [id number] 111 [facility] [place] Inc comple t ed influenza virus vaccine, live 06/04/10 Given Ambulat ory Pharmac y influenza virus vaccine, live, attenuated, for intranasal use 1 2009 [id number] 111 [facility] (MED) complet ed influenza virus vaccine, live, attenuate d, for intranasa l use DoD Novel influenza-H1N 1-09, injectable 2009 [id number] 1A 127 Novartis Pharmaceutica complet ed Novel influenza -Y1U3-51, injectabl e 08/09/09 Given Ambulat ory Pharmac y Novel influenza-H1N 1-09, injectable 1 2009 [id number] 1A 127 Novartis Pharmaceutica Aldo. (NOV) complet ed Novel influenza -K4C5-60, injectabl e DoD influenza virus vaccine, live 2008 [id number] 111 Mediune Inc comple t ed influenza virus vaccine, live 04/19/09 Given Ambulat ory Pharmac y influenza virus vaccine, live, attenuated, for intranasal use 1 2008 [id number] 111 MedIune, Inc. (MED) complet ed influenza virus vaccine, live, attenuate d, for intranasa l use DoD hepatitis A-hepatitis B vaccine 2008 [id number] 5AA 104 GlaxoSmithKli ne complet ed hepatitis A-hepatit is B vaccine 11/22/08 Given Ambulat ory Pharmac y hepatitis A and hepatitis B vaccine 3 2008 [id number] 5AA 104 [facility] ([facility] complet ed hepatitis A and hepatitis B vaccine DoD hepatitis A-hepatitis B vaccine 2007 [id number] 2AC 104 GlaxoSmithKli ne complet ed hepatitis A-hepatit is B vaccine 05/16/08 Given Ambulat ory Pharmac y influenza virus vaccine,split 2007 [id number] 1A 15 CSL Behring complet ed influenza virus vaccine,s plit 05/16/08 Given Ambulat ory Pharmac y influenza virus vaccine, split virus (incl. purified surface antigen)-reti red CODE 1 2007 [id number] 1A 15 [employer] Inc. (CSL) complet ed influenza virus vaccine, split virus (incl. purified surface antigen)- retired CODE DoD hepatitis A and hepatitis B vaccine 2 2007 [id number] 2AC 104 SmithKline (SKB) complet ed hepatitis A and hepatitis B vaccine DoD hepatitis A-hepatitis B vaccine 2007 [id number] 3AA 104 [facility] complet ed hepatitis A-hepatit is B vaccine 04/13/08 Given Ambulat ory Pharmac y measles, mumps and rubella virus vaccine 1 2007 03 () Not Given measles, mumps and rubella virus vaccine DoD varicella virus vaccine 1 2007 21 () Not Given varicella virus vaccine DoD hepatitis A and hepatitis B vaccine 1 2007 [id number] 3AA 104 SmithKline (SKB) complet ed hepatitis A and hepatitis B vaccine DoD tuberculin purified protein derivative 2007 [id number] 96 sanofi pasteur complet ed tuberculi n purified protein derivativ e 04/10/08 Given Ambulat ory Pharmac y tetanus, diphtheria, acellular pertu is 2007 [id number] 115 sanofi pasteur complet ed tetanus, diphtheri a, acellular pertussis 04/08/08 Given Ambulat ory Pharmac y poliovirus vaccine, inactivated 2007 [id number] 10 sanofi pasteur complet ed polioviru s vaccine, inactivat ed 04/08/08 Given Ambulat ory Pharmac y meningococcal A,C,Y,W-135 (MCV4P) 2007 [id number] 114 sanofi pasteur complet ed meningoco ccal A,C,Y,W-1 35 (MCV4P) 04/08/08 Given Ambulat ory Pharmac y poliovirus vaccine, inactivated 1 2007 [id number] 10 Sanofi Pasteur (PMC) complet ed polioviru s vaccine, inactivat ed DoD meningococcal polysaccharid e (groups A, C, Y and W-135) diphtheria toxoid conjugate vaccine (MCV4P) 1 2007 [id number] 114 Sanofi Pasteur (PMC) complet ed meningoco ccal polysacch aride (groups A, C, Y and W-135) diphtheri a toxoid conjugate vaccine (MCV4P) DoD tetanus toxoid, reduced diphtheria toxoid, and acellular pertu is vaccine, adsorbed 1 2007 [id number] 115 Sanofi Pasteur (PMC) complet ed tetanus [...] DC Date Status Disposition Source [employer]([facility]) DENTAL [id number] sick call MIGUEL ANGEL PATEL 06/06 Released w/o Limitations [employer](D ental Clinic) [employer]([facility]) DENTAL [id number] iv sed 3rds ALEJO BARRIOS 06/06 [employer](D ental Clinic) [employer]([facility]) DENTAL [id number] Iv Sedatio n 3rds CHE NEGRON 06/08 [employer](D ental Clinic) [employer](PHA Cell) OUTPATIENT [id number] RAVIN WESTFALL 11/22 Released w/o Limitations [employer](P NOLAN Cell) [employer](FP Rok II) OUTPATIENT [id number] states nausea and diarrhe a JANET BOYLE 02/21 Released w/o Limitations [employer](F P Rok II) [employer]([facility] [employer]) DENTAL [id number] sickcal l MIKE ROD 05/10 Medical Group(D ental Service s) [employer]([facility] [employer]) DENTAL [id number] MIGUEL ANGEL Pennington 06/19 Released w/o Limitations [employer](D ental Service s) [employer](FP Rok I) TELE CONSULT [id number] fever, vomitin g since yesterd ay, headach e, sore throat [phone] ANDREA JON 10/03 Medical Group(F P Rok I) [facility] Group(FP Rok I) OUTPATIENT [id number] AD w/ chills/ sore throat/ nausea DEANNE FLOYD 10/03 Released w/o Limitations [facility](F P Rok I) [facility] Group(PHA Cell) OUTPATIENT [id number] pha-314 SERGE JENSEN 01/19 Released w/o Limitations [facility](P NOLAN Cell) [facility] Group(FP Rok I) OUTPATIENT [id number] uncomfo rtable breathi ng JANIS BONE 05/23 Released w/o Limitations [facility](F P Rok I) [facility]) TELE CONSULT [id number] Appt with JUAN Rocha 05/23 [facility] Group(FP Rok I) TELE CONSULT [id number] cxr results JANIS BONE 05/23 Medical Group(F P Rok I) [facility] Group(FP Rok II) OUTPATIENT [id number] PATEL MARCUM 06/13 Released w/o Limitations [facility](F P Rok II) [facility] Group(FP Rok II) OUTPATIENT [id number] tobacco cessati on AYLA TAQUERIA E 08/22 Released w/o Limitations [facility](F P Rok II) [facility] Group(FP Rok I) OUTPATIENT [id number] swollen lt big toe JANIS BONE 10/18 Released w/o Limitations [facility](F P Rok I) [facility](PHA Cell) OUTPATIENT [id number] PHA ORA DEGROOT 01/21 Released w/o Limitations [facility](P NOLAN Cell) Medical Group(Opt ometry Services) OUTPATIENT [id number] os red eye JAZMIN PRECIADO 03/20 Released w/o Limitations [facility](O ptometr y Service s) [facility] 2) TELE CONSULT [id number] Notes Entered by: LANEY PEREIRA 14 Oct 2011911 ------- ------- ------- ------- -- AC. Pt c/o vomitin g/diarr hea.... [phone] DEANNE EDWARDS 10/13 Medical Group([facility] 2) Medical Group([facility] 2) OUTPATIENT [id number] abdomin al pain CARON ZAMUDIO 07/24 Released w/o Limitations [facility] 2) [address] [place] [address]([facility] 2) OUTPATIENT [id number] abdomin al pain PIETER DONG 07/31 Released w/o Limitations Medical [facility] 2) [facility] 2) OUTPATIENT [id number] cough/c ongesti on/head ache DEANNE EDWARDS 08/19 Released w/o Limitations [facility] 2) [address] [place] [address]([facility] 2) OUTPATIENT [id number] dizzine ss/ligh t headed/ chills PIETER DONG 08/26 Released w/o Limitations Medical [facility] 2) [facility] 2) TELE CONSULT [id number] Notes Entered by: YONG MARTINEZ 26 Aug 2012 1326 ------- ------- ------- ------- -- Needs f/u appt abd pain/ab n fecal fat ART TRIANA 08/26[facility] Group([facility] 2) [facility](PHA Cell) OUTPATIENT [id number] ISAIAH VENEGAS 09/03 Released w/o Limitations [facility](P NOLAN Cell) Medical Group([facility] ROK 2) OUTPATIENT [id number] f/u abd pain and adn fecal fat PIETER DONG 09/16 Released w/o Limitations [facility] Group([facility] R[facility] 2) Medical Group([facility] 2) TELE CONSULT [id number] Notes Entered by: BHAVIN HUMPHRIES 24 Nov 2012 1245 ------- ------- ------- ------- -- NETWORK RESULTS - GASTRO - 11/07 PIETER DONG 11/24 Medical Group([facility] 2) Medical Group([facility] 2) TELE CONSULT [id number] Notes Entered by: WILL IZAGUIRRE 27 Nov 2012 1403 ------- ------- ------- ------- -- Network Results - Gastroe nterolo gy 12/07 PIETER DONG 11/27 Medical Group([facility] 2) Medical [facility] 2) OUTPATIENT [id number] cold symptom s PIETER DONG 04/13 Released w/o Limitations [facility] 2) Medical [facility] 2) OUTPATIENT [id number] congest ion/cou gh PIETER DONG 08/17 Released w/o Limitations [facility] 2) Medical [facility] 2) OUTPATIENT [id number] DEANNE August 08/26 Released w/o Limitations [facility] 2) Medical Group([facility] 2) OUTPATIENT [id number] Notes Entered by: BOZENA ABDI 10 Sep 2013 0954 ------- ------- ------- ------- -- throat culture SCHULTE, CASSIA NAVID 09/10 Released w/o Limitations [facility] 2) Medical Group([facility] 2) OUTPATIENT [id number] pink eye DEANNE EDWARDS 09/14 Released w/o Limitations [facility] 2) Medical Group([facility] 2) TELE CONSULT [id number] Notes Entered by: Vera SANTOYO 20 Sep 2013 1536 ------- ------- ------- ------- -- Ac. Michel cardona pt need med refill for chantix ...[phone] LESLY CRUZ 09/20 Medical Group([facility] 2) Medical Group(PHA Cell) OUTPATIENT [id number] PHA-LIP IDS CHEYENNE BARKSDALE 09/30 Released w/o Limitations [facility](P NOLAN Cell) Medical Group([facility] 2) OUTPATIENT [id number] stomach /vomiti ng and diarrhe CORDELL Alvarado 10/27 Sick at Home/Quarter s [facility] 2) Medical Group(In and Out Processin abran [place]) TELE CONSULT [id number] Notes Entered by: Bree FAUSTIN 21 Jan 2014 0740 ------- ------- ------- ------- -- Out-pro cessing CHAU FAUSTIN 01/21 Medical Group(I n and Out Process ing Vera Daniel) [facility] Group([facility] 2) OUTPATIENT [id number] mole eval/re moval-r eferrPIETER Mao 02/08 Released w/o Limitations [facility] 2) [facility] TELE CONSULT [id number] Notes Entered by: YONG MARTINEZ 16 Feb 2014 0715 ------- ------- ------- ------- -- Tissue results MUSA BOYKIN 02/16 [employer](Vera pepe [facility] R[facility] 2) [employer]([facility]) OUTPATIENT [id number] Notes Entered by: Pawel ZALDIVAR V 29 May 2016 1228 ------- ------- ------- ------- -- Sinus Pressur e 364TRSANDRA MEADOWS 05/29 Sick at Home/Quarter s [employer]( [facility] [employer]([facility]) OUTPATIENT [id number] Sinus Congest ion f0stlba s 364TRS SHANICE MONTELONGO 06/14 Released w/o Limitations [employer]([facility]placed by [facility] [place] [address](AFN G 104 Med Sq-FM) OUTPATIENT [id number] Notes Entered by: OLY MOHR 29 Dec 2016 1518 ------- ------- ------- ------- -- [employer] ice VITOR POLLARD 12/29 Released w/o Limitations [facility] [place] [address](A FNG 104 Med Sq-FM) [place] [address](AFN G 104 Med Sq-FM) OUTPATIENT [id number] Notes Entered by: OLY MOHR 28 Aug 2017 1409 ------- ------- ------- ------- -- VITOR POLLARD 08/28 Released w/o Limitations [facility] [place] [address](A FNG 104 Med Sq-FM) [place] [id number](AFN G 104 Med Sq-FM) OUTPATIENT [id number] Notes Entered by: HARRY DWYER 19 Sep 2017 1625 ------- ------- ------- ------- -- HERNANDEZ Raymond 09/19 [facility]ased w/o Limitations [facility] [place] [place] [address](A FNG 104 Med Sq-FM) [place] [id number](AFN G 104 Med Sq-PH) OUTPATIENT [id number] Notes Entered by: HARRY DWYER 22 Jan 2018 0909 ------- ------- ------- ------- -- [facility] VITOR MOHR 01/22 Released w/o Limitations [facility] [place] [place] [address](A FNG 104 Med Sq-PH) [place] [address](AFN G 104 Med Sq-FM) OUTPATIENT [id number] Notes Entered by: MARÍA RODRIGUEZ 26 Sep 2018 1317 ------- ------- ------- ------- -- HERNANDEZ Basurto am 09/26 [facility] Limitations [facility] [place] [address](A FNG 104 Med Sq-FM) [place] [id number](AFN G 104 Med Sq-FM) OUTPATIENT [id number] Notes Entered by: OLY MOHR 28 Aug 2019 1419 ------- ------- ------- ------- -- VITOR POLLARD 08/28 [facility]ased w/o Limitations [facility] [place] [address](A FNG 104 Med Sq-FM) [facility], [facility](AFN G 104 Med Sq-FM) OUTPATIENT [id number] Notes Entered by: ALVA NOLASCO 18 Feb 2020 0949 ------- ------- ------- ------- -- YESICA NOLASCO ALVA SANDERS 02/17 Released w/o Limitations [facility] [place] [address](A FNG 104 Med Sq-FM) [place] [address](AFN G 104 Med Sq-FM) OUTPATIENT [id number] Notes Entered by: ALVA NOLASCO 14 Jun 2020 1630 ------- ------- ------- ------- -- MEET NOLASCO ALVA SANDERS 06/14 Released w/o Limitations [facility] [place] [address](A FNG 104 Med Sq-FM) [place] [address](AFN G 104 Med Sq-FM) OUTPATIENT [id number] ALVA NOLASCO TOMMY 09/26 Released w/o Limitations [facility] [place] [address](A FNG 104 Med Sq-FM) [place] [address](AFN G 104 Med Sq-FM) OUTPATIENT [id number] Notes Entered by: ALVA NOLASCO 06 Oct 2020 1036 ------- ------- ------- ------- -- ALDO CONSTANCE ALVA SANDERS 10/06 Released w/o Limitations [facility] [place] [address](A FNG 104 Med Sq-FM) [place] [address](AFN G 104 Med Sq-FM) TELE CONSULT [id number] JASMYNE NOLASCOBLAYNE SANDERS 10/27 [facility] [place] [address](A FNG 104 Med Sq-FM) [place] [address](AFN G 104 Med Sq-FM) OUTPATIENT [id number] Notes Entered by: BRENDA MARTINEZ R 03 Oct 2021 1459 ------- ------- ------- ------- -- PHAQ JEREMY MARTINEZ R 10/03 Released w/o Limitations [facility] [place] [address](A FNG 104 Med Sq-FM) [place] [address](AFN G 104 Med Sq-FM) OUTPATIENT [id number] Notes Entered by: CASIMIRO VELAZQUEZ 04 Oct 2021 1153 ------- ------- ------- ------- -- Audiogr am/PHAQ /JEREMY BLUM R 10/04 Released w/o Limitations [facility] [place] [address](A FNG 104 Med Sq-FM) 8203R-104 MDG Between Visit [id number] 07/06 Discharge Disposition: Home or Self Care 8203R-1 04 MDG 8203R-104 MDG Mass Vaccine [id number] 07/06 8203R-1 04 MDG 8203R-104 MDG Outpatient [id number] MIKE GARCIA 10/30 Discharge Disposition: Home or Self Care 8203R-1 04 MDG 8203R-104 MDG Care Not Rendered [id number] 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 Procedure Procedure Type Code Date Perfomer Comments [facility] e Biopsy Skin Biopsy Skin 63645 02/09/[address] [facility] Surgical boot/shoe, each 10/19/[address] [facility] Orthopedic Strapping Foot Orthopedic Strapping Foot 91937 10/19/[address] [facility] Intervention And Counseling On Ce ation Of Tobacco Use Intervention And Counseling On Cessation Of Tobacco Use 4000F 06/13/[address] [facility] Audiogram (Screening) Audiogram (Screening) 70500 01/20/20 10 SERGE JENSEN DD FORM 2216E-WNL [facility] Audiogram (Screening) Audiogram (Screening) 33138 11/23/19 09 RAVIN JO DD FORM 2215E-WNL [facility] BIOPSY OF SKIN, SUBCUTANEOUS TISSUE AND/OR MUCOUS MEMBRANE (INCLUDING SIMPLE CLOSURE), UNLESS OTHERWISE LISTED; SINGLE LESION 02/09/[address] [facility] SURGICAL BOOT/SHOE, EACH 10/19/[address] [facility] TOBACCO USE CESSATION INTERVENTION, COUNSELING (COPD, CAP, CAD, ASTHMA) (DM) (PV) 06/13/[address] [facility] SCREENING TEST, PURE TONE, AIR ONLY 01/20/[address] [facility] SCREENING TEST, PURE TONE, AIR ONLY 11/23/[address] [facility] No data available for this section Ambulatory Pharmacy Social History Combined list of available smoking, tobacco, and other social history from [facility] of Defense and Veterans [facility] facilities. Social History Type Response Date Comment [facility] This section is an empty social history section. [facility] Assessment and Plan Combined list of future care activities from Department of Defense and Veterans Affairs facilities (e.g., assessment and plan notes, appointments, orders, and referrals). Additional future care activities may be listed in the Plan of Care section. 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 ? - JLV reviewed. ? - Member to f/u with PCM for all CPS due. ? - Member meets standards for retention/deployment IAW [id number] and MSD:? ?YES?? ? - Member needs profile for duty/fitness/mobility restrictions:? NO? Diagnostic Tests PendingHIV-1/O/2 10/30/24Repository Sample, Serum 10/30/24 11/16/2024 8203R-104 [facility] [place] Functional Status Combined list of recent functional and cognitive assessments recorded at [facility] and [facility] ([facility] Functional [place] Measurement (FIM) Scale: 1 = Total Assistance (Subject = 0% +), 2 = Maximal Assistance (Subject = 25% +), 3 = Moderate Assistance (Subject = 50% +), 4 = Minimal Assistance (Subject = 75% +), 5 = Supervision, 6 = Modified [place] (Device), 7 = Complete [place] (Timely, Safely). Assessment Date/Time Source Assessment Type Assessment Skill Assessment Score Assessment Details No data available for this section
== END 2024-11-16 08:38 | disposition home or self-care (01) ==
LOC: HO.US 08:37
PROVIDERS: PCP Nurse Practitioner Family; Visit Provider Nurse Practitioner Family
DX: R17 Unspecified jaundice (principal)
CPT/HCPCS: 76700

== ENCOUNTER → 2024-11-16 08:40 | Outpatient (BNV) | payer OTHER, SELFPAY | PROVIDERS: PCP Nurse Practitioner Family; Visit Provider Radiology Diagnostic Radiology | DX: R17 Unspecified jaundice (principal) | CPT/HCPCS: 76700 ==

== ENCOUNTER 2024-12-15 14:58 | Outpatient (AMB) | payer OTHER, SELFPAY ==
[2024-12-15 15:04] VITALS: BP 110/70; PULSE 60; O2SAT 97; BMI 23.4
--- NOTE | 2024-12-15 15:04 | MHC.PC.OV ---
Vital Signs 12/15/24 15:04 Height 6 ft 4 in Weight 192 lb BMI 23.4 BP 110/70 Blood Pressure Location Lt brachial Position Sitting Pulse 60 Pulse Source Pulse Oximeter Pulse Oximetry (%) 97 Oxygen Delivery Method Room Air Intake Visit Reasons: Annual PE Authorizer Required: No Accompanied by: Self / Same As Patient Allergies gluten Adverse Reaction (Mild, Verified 12/15/24 15:04) Diarrhea Tobacco use date assessed: 12/15/24 Dental Screening Dental Screen Date: 12/15/24 Did you have a dental visit in the last 12 months?: Yes Did you have a dental problem in the last 6 months where you did not have access to dental care?: No Was dental information given to patient?: Patient has dentist HPI Annual PE HPI Details History of Present Illness The patient is a 39-year-old male presenting with a history of gastrointestinal symptoms, including abdominal cramping, diarrhea, early satiety, and bloating, persisting over several years. He describes the abdominal cramping as intermittent and occurring both with and without diarrhea. There is also a note of early satiety, and he experiences bloating, particularly following bowel movements. Dietary intervention with a gluten-free diet was initially beneficial but is no longer effectively mitigating the symptoms. A celiac panel conducted recently indicated negative results for celiac disease. He consulted a tennis ball cover cementer one and a half to two months ago. Cut out ETOH years ago as well, initially helped, but still ongoing GI symptoms. Health Maintenance Social History - Past significant alcohol use. Review of Systems - Gastrointestinal: Reports diarrhea, abdominal cramping, early satiety, bloating. Denies constipation, blood in stool, chest pain, and shortness of breath. - General: Denies symptoms not specifically mentioned in gastrointestinal context. denies any fevers, chills, N/V, symptoms, SI or HI Physical Exam General: Cooperative, healthy appearing, comfortable, no acute distress and well developed Orientation: Patient oriented x3 Limitations: No limitations Head: Normal to inspection Ears: Hearing grossly normal bilaterally Nose: Normal external nose present Face and sinus: Normal facial exam Eyes: Appearance normal, both eyes and all related structures Neck: Normal visual inspection and Yes full ROM Respiratory: Normal respiratory effort and able to speak in complete sentences. Clear to auscultation bilaterally Cardiovascular: Regular rate and rhythm. Normal S1 and S2 GI: Normal to inspection. Soft to palpation and nontender : right small testicle Skin: No rashes or lesions noted Neuro: Patient oriented x3 Extremities: Normal to inspection, except for a smaller right cervical result of an issue after vasectomy procedure Results - Labs: Celiac panel negative for celiac disease. Plan The patient's gastrointestinal symptoms, including abdominal cramping, diarrhea, early satiety, and bloating, persist with non-celiac disease. Initial improvements with a gluten-free diet are not currently sustained. Allergy testing will be conducted to explore other potential causes. Awaiting tennis ball cover cementer input following a recent consultation. Management factors include dietary modifications, previously significant alcohol use, and monitoring for symptom changes or further diagnostic needs. Patient was informed and verbally consented to the use of an ambient scribe for clinic note documentation during this visit. Discussion Notes I discussed the patient's persistent gastrointestinal symptoms with him during the visit. We reviewed the results of his celiac panel, which returned negative, suggesting non-celiac causes for his symptoms. I proposed the addition of allergy testing to determine potential allergic triggers. We discussed the past impact of dietary interventions and the return of his symptoms, noting changes in his response to gluten-free adaptations. The importance of monitoring his symptoms and awaiting further guidance from the recent gastroenterology consultation was emphasized. He agreed to the planned course of action. Patient Instructions - Follow a gluten-free diet as previously attempted, monitor changes. - Undergo any scheduled allergy testing to identify potential triggers. - Keep track of symptom occurrences and details to discuss in future consultations. - Return for follow-up if symptoms worsen or with results from scheduled tests. [facility] Medical History Gluten intolerance Surgical History History of testicular surgery History of surgery on lower extremity History of nasal surgery H/O vasectomy H/O nasal septoplasty H/O wisdom tooth extraction Family History Father Lung cancer HTN (hypertension) Mother No problems noted. Social History Housing: Apartment Comment: stinging Patient Tobacco Use Status: Former Tobacco user Tobacco use type: Cigarette Years Smoked: 10 e-Cigarette/Vaping Use: Never Used Second Hand Smoke Exposure: No service: Yes Current occupational status: employed Current occupation: [employer] Current occupational exposures/hazards: Yes Cognitive needs: No Hearing needs: No Vision needs: No Questionnaire PHQ-9 Over the last 2 weeks, how often have you been bothered by any of the following problems? 1. Little interest or pleasure in doing things: not at all 2. Feeling down, depressed, or hopeless: not at all 3. Trouble falling or staying asleep, or sleeping too much: not at all 4. Feeling tired or having little energy: not at all 5. Poor appetite or overeating: not at all 6. Feeling bad about yourself - or that you are a failure or have let yourself or your family down: not at all 7. Trouble concentrating on things, such as reading the newspaper or watching television: not at all 8. Moving or speaking so slowly that other people could have noticed. Or the opposite - being so fidgety or restless that you have been moving around a lot more than usual: not at all 9. Thoughts that you would be better off or of hurting yourself in some way: not at all Total score: 0 Depression Screening Interpretation: Negative Depression Screening Done: Yes 87882 - PHQ-9 Billing: Yes Source: Developed by Drs. Narinder Issa, Deloris Cheung, Gilmer Deng and colleagues, with an educational adelfo from [employer]. Thrive Questionnaire Date Thrive assessed: 12/15/24 I am a: Patient What is your living situation today?: I have a steady place to live Within the past 12 months, did the food you bought not last and you didn't have the money to get more?: Never true Within the past 12 months, did you worry whether your food would run out before you got money to buy more?: Never true Do you have trouble paying for medicines?: No Do you have trouble getting transportation to medical appointments?: No Do you have trouble paying your heating and electricity bill?: No Do you have trouble taking care of your child, family member or friend?: No Do you have trouble with day-to-day activities such as bathing, preparing meals, shopping, managing finances, etc.?: No Are you currently unemployed and looking for a job?: No Are you interested in more education?: No Please select the resources that you would like help with: None Currently or been in a relationship where the following occur: No concerns reported THRIVE Score: 0 AUDIT C Alcohol Use Questionnaire (AUDIT-C) 1. How often do you have a drink containing alcohol?: Never 3. How often do you have six or more drinks on one occasion?: Never Total Score: 0 Score Reviewed/Action Taken: Yes NANCI-7 AMB Questionnaire NANCI-7 Date NANCI - 7 assessed: 12/15/24 Feeling nervous, anxious, or on edge: 0 = Not at all Not being able to stop or control worryin = Not at all Worrying too much about different things: 0 = Not at all Trouble relaxin = Not at all Being so restless that it is hard to sit still: 0 = Not at all Becoming easily annoyed or irritable: 0 = Not at all Feeling afraid as if something awful might happen: 0 = Not at all Total NANCI-7 score (0-4 normal; 5-9 mild; 10-14 moderate; 15-21 severe): 0 Source: Developed by Drs. Narinder Issa, Deloris Cheung, Gilmer Deng and colleagues, with an educational adelfo from [employer]. NANCI-7 Assessment Billing NANCI-7 Assessment Tool: NANCI-7 Assessment 88018 Physical exam (Primary Care) Vital Signs: Last Vital Signs Pulse 60 12/15/24 15:04 BP 110/70 12/15/24 15:04 Pulse Ox 97 12/15/24 15:04 Oxygen Delivery Method Room Air 12/15/24 15:04 BMI result Body Mass Index 23.4 Tobacco/Smoking Status: Tobacco use Status Tobacco use date assessed 12/15/24 12/15/24 15:05 Patient Tobacco Use Status Former Tobacco user 12/15/24 15:05 Tobacco use type Cigarette 12/15/24 15:05 e-Cigarette/Vaping Use Never Used 12/15/24 15:05 PHQ-9: PHQ-9 Score PHQ-9: Total score 0 12/15/24 15:13 Depression Screening Interpretation: Negative Thrive Assessment: Date of Thrive Assessment Date Thrive assessed 12/15/24 12/15/24 15:05 Currently or been in a relationship where the following occur: No concerns reported Coding Level of Care Code Est Pt Prev Care 18-39y(29506) Diagnoses Encounter for routine adult physical exam with abnormal findings Z00. Additional Codes NANCI-7 Assessment Billing - NANCI-7 Assessment Tool: NANCI-7 Assessment 74928 ([id number]) PHQ-9 - 23630 - PHQ-9 Billing: Yes ([id number]) Assessment & Plan Assessment & Plan (1) Encounter for routine adult physical exam with abnormal findings: Code(s): Z00. - Encounter for general adult medical examination with abnormal findings Category: Medical Plan . Orders: Orders Comprehensive Levels. Panel Fast Today Z00.01 - Encounter for general adult medical examination with abnormal findings Lipid Panel Today Z00.01 - Encounter for general adult medical examination with abnormal findings Complete Blood Count Auto Diff Today Z00.01 - Encounter for general adult medical examination with abnormal findings TSH reflex Free T4 Today Z00.01 - Encounter for general adult medical examination with abnormal findings UA CC w/rflx Micro + Cult Today Z00.01 - Encounter for general adult medical examination with abnormal findings
--- OUTSIDE RECORDS SUMMARY | 2024-12-15 15:05 | XMS_ITS | Continuity of Care Document ---
Author Name [facility] Organization [facility] Care Team Providers Care Flight Dispatcher Name Role Phone [facility] Unavailable Unavailable Problems Combined list of problems from Department of Defense and Veterans Affairs facilities. It does not include entries that were removed or entered in error. 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 HEALTH ASSESSMENT (PHA) Active 10/30/2024 Diagnosis 8203R-10 4 MDG CONJUNCTIVITIS Inactive Condition DoD sore throat Inactive Condition DoD Patient Education - Medication Active Condition DoD IRRITABLE BOWEL SYNDROME Active Condition DoD muscle aches, generalized (myalgias) Active Condition [facility] Outpatient Physician Consultation Active Condition DoD INFLUENZA Inactive Condition [facility] UPPER RESPIRATORY INFECTION Inactive Condition [facility] PRURITUS ANI Inactive Condition [facility] current smoker Active Condition DoD abdominal pain Active Condition DoD CONJUNCTIVITIS ACUTE BACTERIAL Inactive Condition DoD patient activity at time of event - volleyball Active Condition DoD joint pain in the toes Inactive Condition DoD NICOTINE DEPENDENCE Active Condition Do D Patient Education Active Condition DoD visit for: administrative purpose Inactive Condition [facility] PECTUS EXCAVATUM Active Condition DoD nausea with vomiting Inactive Condition [facility] NICOTINE DEPENDENCE - CONTINUOUS Active Condition DoD generalized pain Active Condition DoD SORE THROAT Inactive Condition DoD GASTROENTERITIS Active Condition [facility] Patient Counseling: Inactive Condition D oD visit [...] Site Reaction Lot Number CVX Code Drug Pearl Technician Status Comments Source influenza virus vaccine, inactivated 2023 LAILA Haley tea, right (delt oid) [id number] [employer], [employer] complet ed influenza virus vaccine, inactivat ed 07/06/24 Given 8203R-1 04 MDG influenza, injectable, quadrivalent 2020 [id number] GlaxoSmithKli ne complet ed influenza , injectabl e, quadrival ent 06/03/21 Given Ambulat ory Pharmac y influenza, injectable, quadrivalent, contains preservative 8 2020 [id number] 158 [facility] (SKB) complet ed influenza , injectabl e, quadrival ent, contains preservat maria DoD COVID Vaccine Moderna 2020 [id number] complet ed COVID Vaccine Moderna 11/09/20 Given Ambulat ory Pharmac y SARS-COV-2 (COVID-19) vaccine, mRNA, spike protein, LNP, preservative free, 100 mcg or 50 mcg dose 2 2020 [id number] 207 Moderna Tensha [employer], Inc. (MOD) complet ed SARS-COV- 2 (COVID-19 ) vaccine, mRNA, spike protein, LNP, preservat maria free, 100 mcg or 50 mcg dose DoD COVID Vaccine Moderna 2020 [id number] complet ed COVID Vaccine Moderna 10/07/20 Given Ambulat ory Pharmac y SARS-COV-2 (COVID-19) vaccine, mRNA, spike protein, LNP, preservative free, 100 mcg or 50 mcg dose 1 2020 [id number] 207 Moderna [employer] Inc. (MOD) complet ed SARS-COV- 2 (COVID-19 ) vaccine, mRNA, spike protein, LNP, preservat maria free, 100 mcg or 50 mcg dose DoD influenza, injectable, quadrivalent- pf 2019 [id number] 150 Seqirus complet ed influenza , injectabl e, quadrival ent-pf 06/11/20 Given Ambulat ory Pharmac y Influenza, injectable, quadrivalent, preservative free 1 2019 [id number] 077 150 Seqirus (SEQ) complet ed Influenza , injectabl e, quadrival ent, preservat maria free DoD influenza, injectable, quadrivalent- pf 2018 [id number] 520 150 Se[employer]irus complet ed influenza , injectabl e, quadrival ent-pf 05/02/19 Given Ambulat ory Pharmac y Influenza, injectable, quadrivalent, preservative free 1 2018 [id number] 520 150 Seqirus (SEQ) complet ed Influenza , injectabl e, quadrival ent, preservat maria free DoD influenza, injectable, quadrivalent 2017 [id number] 158 Se[employer]irus complet ed influenza , injectabl e, quadrival ent 06/27/18 Given Ambulat ory Pharmac y influenza, injectable, quadrivalent, contains preservative 11 2017 [id number] 158 Seqirus (SEQ) comple t ed influenza , injectabl e, quadrival ent, contains preservat maria DoD measles/mumps /rubella virus vaccine 2017 [id number] Merck & Company Inc complet ed measles/m umps/rube lla virus vaccine 12/27/17 Given Ambulat ory Pharmac y typhoid Vi capsular polysaccharid e vac 2017 [id number] sanofi pasteur complet ed typhoid Vi capsular polysacch aride vac 12/27/17 Given Ambulat ory Pharmac y measles, mumps and rubella virus vaccine 1 2017 [id number] 03 Merck (MSD) complet ed measles, mumps and rubella virus vaccine DoD typhoid Vi capsular polysaccharid e vaccine 1 2017 [id number] Sanofi Pasteur (PMC) complet ed typhoid Vi capsular polysacch aride vaccine DoD measles/mumps /rubella virus vaccine 2017 [id number] 03 Merck & Company Inc complet ed measles/m umps/rube lla virus vaccine 11/29/17 Given Ambulat ory Pharmac y measles, mumps and rubella virus vaccine 1 2017 [id number] 03 Merck (MSD) complet ed measles, mumps and rubella virus vaccine DoD tetanus, diphtheria, acellular pertu is 2017 [id number] 115 GlaxoSmithKli ne complet ed tetanus, diphtheri a, acellular pertussis 09/27/17 Given Ambulat ory Pharmac y tetanus toxoid, reduced diphtheria toxoid, and acellular pertu is vaccine, adsorbed 2 2017 [id number] 115 [employer] (SKB) complet ed tetanus toxoid, reduced diphtheri a toxoid, and acellular pertussis vaccine, adsorbed DoD Influenza, inj, MDCK, quadrivalent- pf 2016 [id number] 171 Seqirus complet ed Influenza , inj, MDCK, quadrival ent-pf 05/11/17 Given Ambulat ory Pharmac y Influenza, injectable, Madin [place] Canine Kidney, preservative free, quadrivalent 1 2016 [id number] 171 Seqirus (SEQ) comple t ed Influenza , injectabl e, Madin [place] Canine Kidney, preservat maria free, quadrival ent DoD influenza, seasonal, injectable-pf 2015 [id number] 140 Seqirus complet ed influenza , seasonal, injectabl e-pf 06/29/16 Given Ambulat ory Pharmac y Influenza, seasonal, injectable, preservative free 9 2015 [id number] 140 Seqirus (SEQ) comple t ed Influenza , seasonal, injectabl e, preservat maria free DoD influenza, seasonal, injectable 2014 [id number] 1A 141 [facility] complet ed influenza , seasonal, injectabl e 04/30/15 Given Ambulat ory Pharmac y Influenza, seasonal, injectable 1 2014 [id number] 1A [address] [facility] TheMobileGamer (TMG)apOrca Digital, Inc. (CSL) complet ed Influenza , seasonal, injectabl e DoD Influenza, injectable, MDCK-pf 2013 [id number] 153 Novartis Pharmaceutica complet ed Influenza , injectabl e, MDCK-pf 04/30/14 Given Ambulat ory Pharmac y Influenza, injectable, Madin [place] Canine Kidney, preservative free 7 2013 [id number] 153 Novartis Pharmaceutica l Aldo. (NOV) complet ed Influenza , injectabl e, Madin [place] Canine Kidney, preservat maria free DoD influenza, live, intranasal,qu adrivalent 2012 [id number] 149 Medimmune Inc comple t ed influenza , live, intranasa l,quadriv alent 05/12/13 Given Ambulat ory Pharmac y influenza, live, intranasal, quadrivalent 6 2012 [id number] 149 MedICemaphore Systems, Inc. (MED) complet ed influenza , live, intranasa l, quadrival ent DoD measles virus vaccine 0 2012 05 () Not Given measles virus vaccine DoD rubella virus vaccine 0 2012 06 () Not Given rubella virus vaccine DoD influenza virus vaccine, live 2011 [id number] 111 Medimmune Inc comple t ed influenza virus vaccine, live 05/08/12 Given Ambulat ory Pharmac y influenza virus vaccine, live, attenuated, for intranasal use 5 2011 [id number] 111 J[employer] Wan[employer]Eleven, Inc. (MED) complet ed influenza virus vaccine, live, attenuate d, for intranasa l use DoD influenza virus vaccine, live 2010 [id number] 111 Mediune Inc comple t ed influenza virus vaccine, live 05/15/11 Given Ambulat ory Pharmac y influenza virus vaccine, live, attenuated, for intranasal use 1 2010 [id number] 111 [facility] ([facility]) complet ed influenza virus vaccine, live, attenuate d, for intranasa l use DoD influenza virus vaccine, live 2009 [id number] 111 [facility] comple t ed influenza virus vaccine, live 06/04/10 Given Ambulat ory Pharmac y influenza virus vaccine, live, attenuated, for intranasal use 1 2009 [id number] 111 [facility] (MED) complet ed influenza virus vaccine, live, attenuate d, for intranasa l use DoD Novel influenza-H1N 1-09, injectable 2009 [id number] 1A 127 Novartis Pharmaceutica complet ed Novel influenza -Q0D5-23, injectabl e 08/09/09 Given Ambulat ory Pharmac y Novel influenza-H1N 1-09, injectable 1 2009 [id number] 1A 127 Novartis Pharmaceutica Aldo. (NOV) complet ed Novel influenza -[id number], injectabl e DoD influenza virus vaccine, live 2008 [id number] 111 Mediune Inc comple t ed influenza virus vaccine, live 04/19/09 Given Ambulat ory Pharmac y influenza virus vaccine, live, attenuated, for intranasal use 1 2008 [id number] 111 MedIune, Inc. (MED) complet ed influenza virus vaccine, live, attenuate d, for intranasa l use DoD hepatitis A-hepatitis B vaccine 2008 [id number] 5AA 104 GlaxoSmithKli ne complet ed hepatitis A-hepatit is B vaccine 11/22/08 Given Ambulat ory Pharmac y hepatitis A and hepatitis B vaccine 3 2008 [id number] 5AA 104 [facility] (SKB) complet ed hepatitis A and hepatitis B vaccine DoD hepatitis A-hepatitis B vaccine 2007 [id number] 2AC 104 GlaxoSmithKli ne complet ed hepatitis A-hepatit is B vaccine 05/16/08 Given Ambulat ory Pharmac y influenza virus vaccine,split 2007 [id number] 1A 15 CSL Behring complet ed influenza virus vaccine,s plit 05/16/08 Given Ambulat ory Pharmac y influenza virus vaccine, split virus (incl. purified surface antigen)-reti red CODE 1 2007 [id number] 1A 15 [employer] Inc. (CSL) complet ed influenza virus vaccine, split virus (incl. purified surface antigen)- retired CODE DoD hepatitis A and hepatitis B vaccine 2 2007 [id number] 2AC 104 SmithKline (SKB) complet ed hepatitis A and hepatitis B vaccine DoD hepatitis A-hepatitis B vaccine 2007 [id number] 3AA 104 [facility] complet ed hepatitis A-hepatit is [...] vaccine DoD tuberculin purified protein derivative 2007 [id number] 96 sanofi pasteur complet ed tuberculi n purified protein derivativ e 04/10/08 Given Ambulat ory Pharmac y tetanus, diphtheria, acellular pertu is 2007 [id number] 115 sanofi pasteur complet ed tetanus, diphtheri a, acellular pertussis 04/08/08 Given Ambulat ory Pharmac y poliovirus vaccine, inactivated 2007 [id number] 10 sanofi pasteur complet ed polioviru s vaccine, inactivat ed 04/08/08 Given Ambulat ory Pharmac y meningococcal A,C,Y,W-135 (MCV4P) 2007 [id number] 114 sanofi pasteur complet ed meningoco ccal A,C,Y,W-1 35 (MCV4P) 04/08/08 Given Ambulat ory Pharmac y poliovirus vaccine, inactivated 1 2007 [id number] 10 Sanofi Pasteur (PMC) complet ed polioviru s vaccine, inactivat ed DoD meningococcal polysaccharid e (groups A, C, Y and W-135) diphtheria toxoid conjugate vaccine (MCV4P) 1 2007 [id number] 114 Sanofi Pasteur ([facility]) complet ed meningoco ccal polysacch aride (groups A, C, Y and W-135) diphtheri a toxoid conjugate vaccine (MCV4P) DoD tetanus toxoid, reduced diphtheria toxoid, and acellular pertu is vaccine, adsorbed 1 2007 [id number] 115 Sanofi Pasteur (PMC) complet ed tetanus toxoid, reduced diphtheri a toxoid, and acellular pertussis vaccine, adsorbed DoD Results Combined list of recent chemistry, hematology and other laboratory results from Department of Defense and Veterans Affairs, ranging from 15 months to all on record, depending upon the facility. Order Name Results Value Reference Range Date Interpretation Specimen Comments Source Infectiou s Disease HIV-1/O/2 Non-Reac tive 1 (10/30/24 10:45 AM) 10/30 N Interpretiv e Data: INTERPRETAT ION: This method is a screening procedure for the detection of HIV p24 Antigen and Antibodies to HIV-1, including Group O, and/or HIV-2. NON-REACTIV E: HIV-1 antigen and HIV-1 / HIV-2 antibodies were not detected. No laboratory evidence of HIV infection. A negative test result does not exclude the possibility of exposure to or infection with HIV. HIV antibodies and/or p24 antigen may be undetectabl e in some stages of the infection and in some clinical conditions. If acute HIV infection is suspected, consider submitting another specimen to a reference laboratory for HIV-1 RNA. SCREEN REACTIVE - CONFIRMATIO N TO FOLLOW: Possible presence of HIV-1antibo dies, HIV-2 antibodies and/or HIV-1 p24 antigen. Specimen will reflex to the confirmatio n testing that fulfills the Center for Disease Control and Prevention' s HIV diagnostic algorithm. Refer to [facility] Lab Guide for additional information : [email or web address] x Testing performed by [employer] pamela peacock. [address] [facility] EPILAB [facility] Sendouts Repository Sample Received (10/30/24 10:45 AM) 10/30 N [address] [facility] Encounters Combined list of: 1) Encounters from [...] Source [facility] DENTAL [id number] sick call MIGUEL ANGEL PATEL 06/06 Released w/o Limitations [facility]) DENTAL [id number] iv sed 3rds ALEJO BARRIOS 06/06 [facility] DENTAL [id number] Iv Sedatio n 3rds CHE NEGRON 06/08 [employer] [facility]) [employer](PHA Cell) OUTPATIENT [id number] FTRAVIN BAXTER 11/22 Released w/o Limitations [facility](P NOLAN Cell) [facility](FP Rok II) OUTPATIENT [id number] states nausea and diarrhe a JANET BOYLE 02/21 Released w/o Limitations [facility](F P Rok II) [facility]) DENTAL [id number] sickcal l VIOLAMIKE 05/10 [facility] Group(D ental Service s) [facility] DENTAL [id number] Exam MIGUEL ANGEL CASON 06/19 Released w/o Limitations [facility](D ental Service s) [facility](FP Rok I) TELE CONSULT [id number] fever, vomitin g since yesterd ay, headach e, sore throat ANDREA JON 10/03 [facility] Group(F P Rok I) [facility](FP Rok I) OUTPATIENT [id number] AD w/ chills/ sore throat/ nausea DEANNE FLOYD 10/03 Released w/o Limitations th [facility](F P Rok I) [facility](PHA Cell) OUTPATIENT [id number] pha-314 SERGE JENSEN 01/19 Released w/o Limitations [facility](P NOLAN Cell) [facility](FP Rok I) OUTPATIENT [id number] uncomfo rtable breathi ng JANIS BONE 05/23 Released w/o Limitations [facility](F P Rok I) [facility](Man aged Care Admin) TELE CONSULT [id number] Appt with JUAN Rocha 05/23 Medical Group(M anaged Care Admin) [facility](FP Rok I) TELE CONSULT [id number] cxr results JANIS BONE 05/23 [facility] Group(F P Rok I) [facility](FP Rok II) OUTPATIENT [id number] PATEL MARCUM 06/13 Released w/o Limitations [facility](F P Rok II) [facility](FP Rok II) OUTPATIENT [id number] tobacco cessati on TAQUERIA AGUILA Pawel 08/22 Released w/o Limitations [facility](F P Rok II) [facility](FP Rok I) OUTPATIENT [id number] swollen lt big toe JANIS BONE 10/18 Released w/o Limitations [facility](F P Rok I) [facility](PHA Cell) OUTPATIENT [id number] PHA ORA DEGROOT 01/21 Released w/o Limitations [facility](P NOLAN Cell) [facility](Opt ometry Services) OUTPATIENT [id number] os red eye JAZMIN PRECIADO 03/20 Released w/o Limitations [facility](O ptometr y Service s) [facility] 2) TELE CONSULT [id number] Notes Entered by: LANEY PEREIRA 14 Oct 2011911 ------- ------- ------- ------- -- AC. Pt c/o vomitin g/diarr hea.... [id number] DEANNE EDWARDS 10/13 Medical Group(L [facility] 2) [employer]([facility] 2) OUTPATIENT [id number] abdomin al pain CARON ZAMUDIO 07/24 Released w/o Limitations [facility] [place] [place] 2) [facility] 2) OUTPATIENT [id number] abdomin al pain PIETER DONG 07/31 Released w/o Limitations [facility] [place] [place] 2) [facility] 2) OUTPATIENT [id number] cough/c ongesti on/head ache DEANNE EDWARDS 08/19 Released w/o Limitations [facility] [place] [place] 2) [facility] 2) OUTPATIENT [id number] dizzine ss/ligh t headed/ chills PIETER DONG 08/26 Released w/o Limitations [facility] [place] [place] 2) [facility] 2) TELE CONSULT [id number] Notes Entered by: YONG MARTINEZ 26 Aug 2012 1326 ------- ------- ------- ------- -- Needs f/u appt abd pain/ab n fecal fat ART TRIANA 08/26[facility] [place] [place] 2) [facility](PHA Cell) OUTPATIENT [id number] PHA ISAIAH CORADO 09/03 Released w/o Limitations [facility](P NOLAN Cell) [facility] 2) OUTPATIENT [id number] f/u abd pain and adn fecal fat PIETER DONG 09/16 Released w/o Limitations [facility] [place] [place] 2) [facility] 2) TELE CONSULT [id number] Notes Entered by: BHAVIN HUMPHRIES 24 Nov 2012 1245 ------- ------- ------- ------- -- NETWORK RESULTS - GASTRO - 11/07 PIETER DONG 11/24 [facility] 2) TELE CONSULT [id number] Notes Entered by: WILL IZAGUIRRE 27 Nov 2012 1403 ------- ------- ------- ------- -- Network Results - Gastroe nterolo gy 12/07 PIETER DONG 11/27 [facility] 2) OUTPATIENT [id number] cold symptom s PIETER DOGN 04/13 Released w/o Limitations [facility] 2) [facility] 2) OUTPATIENT [id number] congest ion/cou gh PIETER DONG 08/17 Released w/o Limitations [employer] [facility] 2) OUTPATIENT [id number] sophiex DEANNE EDWARDS 08/26 Released w/o Limitations [facility] 2) [facility] 2) OUTPATIENT [id number] Notes Entered by: BOZENA ABDI 10 Sep 2013 0954 ------- ------- ------- ------- -- throat culture CASSIA SCHULTE 09/10 Released w/o Limitations [employer] [employer]([facility] 2) OUTPATIENT [id number] pink eye DEANNE EDWARDS 09/14 Released w/o Limitations [facility] 2) [facility] [employer]([facility] 2) TELE CONSULT [id number] Notes Entered by: Vera SANTOYO 20 Sep 2013 1536 ------- ------- ------- ------- -- Ac. Michel cardona pt need med refill for chantix ...[phone] PENNY CRUZE 09/20 [facility] Group([facility] [place] [place] 2) [facility](PHA Cell) OUTPATIENT [id number] PHA-LIP IDS APOLONIA JAMESPawel Graham 09/30 Released w/o Limitations [facility](P NOLAN Cell) [facility] 2) OUTPATIENT [id number] stomach /vomiti ng and diarrCORDELL Milligan 10/27 Sick at Home/Quarter s [facility] [place] [place] 2) [facility] Group(In and Out Processin g Vera Daniel) TELE CONSULT [id number] Notes Entered by: Bree FAUSTIN 21 Jan 2014 0740 ------- ------- ------- ------- -- Out-pro cessing CHAU FAUSTIN 01/21 Medical Group(I n and Out Process ing Vera Daniel) [facility] Group([facility] 2) OUTPATIENT [id number] mole eval/re moval-r eferral PIETER DONG 02/08 Released w/o Limitations [facility] [place] [place] 2) [facility] 2) TELE CONSULT [id number] Notes Entered by: YONG MARTINEZ 16 Feb 2014 0715 ------- ------- ------- ------- -- Tissue results MUSA BOYKIN 02/16 Medical Group([facility] [place] [place] 2) [employer] [facility] OUTPATIENT [id number] Notes Entered by: Pawel ZALDIVAR V 29 May 2016 1228 ------- ------- ------- ------- -- Sinus Pressur e 364TRSANDRA MEADOWS Vera 05/29 Sick at Home/Quarter s [employer]([facility] ) [employer]([facility]) OUTPATIENT [id number] Sinus Congest ion m6ojqij s 364TRS SHANICE MONTELONGO Vera 06/14 Released w/o Limitations [employer]([facility] [place] [address](AFN G 104 Med Sq-FM) OUTPATIENT [id number] Notes Entered by: OLY MOHR 29 Dec 2016 1518 ------- ------- ------- ------- -- [employer] ice VITOR POLLARD 12/29 [facility]ased w[facility] Limitations [facility] [place] [address](A FNG 104 Med Sq-FM) [place] [address](AFN G 104 Med Sq-FM) OUTPATIENT [id number] Notes Entered by: OLY MOHR 28 Aug 2017 1409 ------- ------- ------- ------- -- VITOR POLLARD 08/28 [facility]ased w/o Limitations [facility] [place] [address](A FNG 104 Med Sq-FM) [place] [address](AFN G 104 Med Sq-FM) OUTPATIENT [id number] Notes Entered by: HARRY DWYER 19 Sep 2017 1625 ------- ------- ------- ------- -- HERNANDEZ Raymond 09/19 Released w/o Limitations [facility] [place] [address](A FNG 104 Med Sq-FM) [place] [address](AFN G 104 Med Sq-PH) OUTPATIENT [id number] Notes Entered by: HARRY DWYER 22 Jan 2018 0909 ------- ------- ------- ------- -- [facility] 01/22 [facility] w/o Limitations [facility] [place] [address](A FNG 104 Med Sq-PH) [place] [address](AFN G 104 Med Sq-FM) OUTPATIENT [id number] Notes Entered by: MARÍA RODRIGUEZ 26 Sep 2018 1317 ------- ------- ------- ------- -- AudioHERNANDEZ Cui am 09/26 Released w/o Limitations [facility] [place] [address](A FNG 104 Med Sq-FM) [place] [address](AFN G 104 Med Sq-FM) OUTPATIENT [id number] Notes Entered by: OLY MOHR 28 Aug 2019 1419 ------- ------- ------- ------- -- VITOR POLLARD 08/28 [facility]ased w/o Limitations [facility] [place] [address](A FNG 104 Med Sq-FM) [place] [address](AFN G 104 Med Sq-FM) OUTPATIENT [id number] Notes Entered by: ALVA NOLASCO 18 Feb 2020 0949 ------- ------- ------- ------- -- ALVA CHAVARRIA 02/17 [facility]ased w/o Limitations [facility] [place] [address](A FNG 104 Med Sq-FM) [place] [address](AFN G 104 Med Sq-FM) OUTPATIENT [id number] Notes Entered by: ALVA NOLASCO TOMMY 14 Jun 2020 1630 ------- ------- ------- ------- -- TAYLOR2 ALVA NOLASCOGIOVANNY 06/14 Released w/o Limitations [facility] [place] [address](A FNG 104 Med Sq-FM) [place] [address](AFN G 104 Med Sq-FM) OUTPATIENT [id number] ALVA NOLASCO TOMMY 09/26 Released w/o Limitations [facility] [place] [address](A FNG 104 Med Sq-FM) [place] [address](AFN G 104 Med Sq-FM) OUTPATIENT [id number] Notes Entered by: ALVA NOLASCOGIOVANNY 06 Oct 2020 1036 ------- ------- ------- ------- -- ALDO ALVA NOLASCO TOMMY 10/06 Released w/o Limitations [facility] [place] [address](A FNG 104 Med Sq-FM) [place] [address](AFN G 104 Med Sq-FM) TELE CONSULT [id number] ALVA NOLASCOGIOVANNY 10/27 [facility] [place] [address](A FNG 104 Med Sq-FM) [facility] [address](AFN G 104 Med Sq-FM) OUTPATIENT [id number] Notes Entered by: BRENDA MARTINEZ R 03 Oct 2021 1459 ------- ------- ------- ------- -- JEREMY INMAN 10/03 Released w/o Limitations [facility] [place] [address](A FNG 104 Med Sq-FM) [place] [address](AFN G 104 Med Sq-FM) OUTPATIENT [id number] Notes Entered by: CASIMIRO VELAZQUEZ 04 Oct 2021 1153 ------- ------- ------- ------- -- Audiogr am/PHAQ /YESICA WILL MARTINEZRIDGE Jacobs 10/04 Released w/o Limitations [facility] [place] [address](A FNG 104 Med Sq-FM) 8203R-104 MDG Between Visit [id number] 07/06 Discharge Disposition: Home or Self Care 8203R-1 04 MDG 8203R-104 MDG Mass Vaccine [id number] 07/06 8203R-1 04 MDG 8203R-104 MDG Outpatient [id number] MIKE GARCIA 10/30 Discharge Disposition: Home or Self Care 8203R-1 04 MDG 8203R-104 MDG Care Not Rendered [id number] EXAM/ 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 Procedure Procedure Type Code Date Perfomer Comments Sourc e BIOPSY OF SKIN, SUBCUTANEOUS TISSUE AND/OR MUCOUS MEMBRANE (INCLUDING SIMPLE CLOSURE), UNLESS OTHERWISE LISTED; SINGLE LESION 02/09/20 14 [facility] SURGICAL BOOT/SHOE, EACH 10/19/19 11 [facility] TOBACCO USE CESSATION INTERVENTION, COUNSELING (COPD, CAP, CAD, ASTHMA) (DM) (PV) 06/13/20 10 [facility] SCREENING TEST, PURE TONE, AIR ONLY 01/20/20 10 [facility] SCREENING TEST, PURE TONE, AIR ONLY 11/23/19 09 [facility] Biopsy Skin Biopsy Skin 80121 02/09/20 14 PIETER DONG [facility] Surgical boot/shoe, each 10/19/19 11 JANIS BONE [facility] Orthopedic Strapping Foot Orthopedic Strapping Foot 05737 10/19/19 11 JANIS BONE [facility] Intervention And Counseling On Ce ation Of Tobacco Use Intervention And Counseling On Cessation Of Tobacco Use 4000F 06/13/20 10 PATEL CURIEL [facility] Audiogram (Screening) Audiogram (Screening) 02355 01/20/20 10 SERGE JENSEN DD FORM 2216E-WNL [facility]D Audiogram (Screening) Audiogram (Screening) 22018 11/23/19 09 RAVIN JO DD FORM 2215E-WNL [facility] No data available for this section Ambulatory Pharmacy Social History Combined list of available smoking, tobacco, and other social history from Department of Defense and Veterans Affairs facilities. Social History Type Response Date Comment Sourc e This section is an empty social history section. [facility] Assessment and Plan Combined list of future care activities from Department of Defense and Veterans Affairs facilities (e.g., assessment and plan notes, appointments, orders, and referrals). Additional future care activities may be listed in the Plan of Care section. 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 ? - JLV reviewed. ? - Member to f/u with PCM for all CPS due. ? - Member meets standards for retention/deployment IAW [id number] and MSD:? ?YES?? ? - Member needs profile for duty/fitness/mobility restrictions:? NO? 12/15/2024 8203R-104 MDG Functional Status Combined list of recent functional and cognitive assessments recorded at [facility] of Defense and [facility] [place] Functional [place] Measurement (FIM) Scale: 1 = Total Assistance (Subject = 0% +), 2 = Maximal Assistance (Subject = 25% +), 3 = Moderate Assistance (Subject = 50% +), 4 = Minimal Assistance (Subject = 75% +), 5 = Supervision, 6 = Modified [place] (Device), 7 = Complete [place] (Timely, Safely). Assessment Date/Time Source Assessment Type Assessment Skill Assessment Score Assessment Details No data available for this section
== END 2024-12-15 15:38 | disposition home or self-care (01) ==
LOC: HO.HMCC 14:58
PROVIDERS: PCP Nurse Practitioner Family; Visit Provider Nurse Practitioner Family
DX: Z00.01 Encounter for general adult medical examination with abnormal findings (principal)

== ENCOUNTER → 2024-12-15 14:58 | Outpatient (BNVA) | payer OTHER, SELFPAY | PROVIDERS: PCP Nurse Practitioner Family; Visit Provider Nurse Practitioner Family | DX: Z00.01 Encounter for general adult medical examination with abnormal findings (principal); K90.41 Non-celiac gluten sensitivity; Z71.3 Dietary counseling and surveillance; Z87.891 Personal history of nicotine dependence | CPT/HCPCS: 96127 ==

== ENCOUNTER 2025-02-15 13:38 | Outpatient (AMB) | payer OTHER, SELFPAY ==
--- NOTE | 2025-02-15 13:51 | A.OFFVIS_ITS ---
Vital Signs 02/15/25 13:52 Height 6 ft 4 in Weight 185 lb BMI 22.5 BP 128/66 Blood Pressure Location Rt brachial Position Sitting Pulse 72 Pulse Source Pulse Oximeter Pulse Oximetry (%) 98 Oxygen Delivery Method Room Air Intake Visit Reasons: Irritable bowel syndrome Intake Note: New pt for initial eval of IBS. CC; C.O. chronic abd pain, diarrhea, bloating, general malaise, brain fog. Pt states that he has been dealing with varying severity of sx since 2011. Pt [facility] and was diagnosed with IBS. Pt did elimination / low FODMAP diet and determined gluten as a primary trigger. Pt still experiencing frequent weight fluctuation of ~ 15 lbs over the course of a month. 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 Patient was sent by his PCP to evaluate his on going GI symptoms. Patient reports that he feels like the symptoms started in 2011. Patient previously had colonoscopy for change in bowel kayleigh erns abdominal pain and discomfort and was diagnosed with IBS. Patient reports trying in the past no FODMAP diet and found that gluten was 1 of the triggers that worsen his symptoms. Patient reports abdominal bloating epigastric pain. Reports brain fog, feeling tired. Patient denies having acid reflux or epigastric pain. Patient reports to be very bloated and gassy. There was a period where and over 2 months he would gain 15 lb and then lost 15 lb in a matter of just a couple of months. Patient denies any nausea or vomiting. Patient reports to have a good appetite. [facility] Medical History Gluten intolerance Surgical History H/O colonoscopy History of testicular surgery History of surgery on lower extremity History of nasal surgery H/O vasectomy H/O nasal septoplasty H/O wisdom tooth extraction Family History Father Lung cancer HTN (hypertension) Mother No problems noted. Social History Housing: Apartment Comment: stinging Patient Tobacco Use Status: Former Tobacco user Tobacco use type: Cigarette Years Smoked: 10 e-Cigarette/Vaping Use: Never Used Second Hand Smoke Exposure: No service: Yes Current occupational status: employed Current occupation: [employer] Current occupational exposures/hazards: Yes Cognitive needs: No Hearing needs: No Vision needs: No Review of Systems Const Denies weight gain and Denies weight loss ENT Reports no additional complaints, Denies dysphagia and Denies odynophagia Card Reports no additional complaints Resp Reports no additional complaints GI Reports abdominal pain, Denies belching, Denies melena, Reports bloating, Denies change in bowel habits, Reports constipation, Denies dysphagia, Denies excessive flatus, Denies dyspepsia, Reports heartburn, Denies diarrhea, Reports loose stools, Denies nausea, Denies odynophagia and Denies vomiting Reports no additional complaints Musc Reports no additional complaints Neuro Reports no additional complaints Psych Reports no additional complaints Endo Reports no additional complaints Physical Exam Vital Signs: Last Vital Signs Pulse 72 02/15/25 13:52 BP 128/66 02/15/25 13:52 Pulse Ox 98 02/15/25 13:52 Oxygen Delivery Method Room Air 02/15/25 13:52 BMI result Body Mass Index 22.5 Const General: healthy appearing, no acute distress and well developed Nutritional Appearance: well nourished Orientation/consciousness: patient oriented x3 HEENT Head: Yes normal to inspection, Yes normocephalic and Yes atraumatic Face and sinus: Yes normal facial exam Mouth: Normal oral and palatal mucosa present Throat: Yes posterior oropharynx normal, Yes tonsils normal and Yes uvula midline Eyes General: appearance normal, both eyes and all related structures Neck Neck: Yes normal visual inspection, Yes full ROM and Yes trachea midline Thyroid: Thyroid normal Resp Effort & Inspection: normal respiratory effort, able to speak in complete sentences, no tracheal deviation and symmetric chest movement Auscultation: clear to auscultation bilaterally Cardio Jugular venous distension: no JVD Rate: regular rate Heart sounds: S1 normal heart sound present, S2 normal heart sound present, no gallops and no murmurs GI Inspection: Yes normal to inspection and No distended Palpation (GI): Soft to palpation, not firm, nontender and No hepatosplenomegaly present Auscultation: normal bowel sounds General: Yes no CVA tenderness Back/Spine/Pelvis Back: no CVA tenderness Skin General skin exam: elasticity normal, turgor normal and dry skin Neuro General: patient oriented x3 Psych Appearance: grossly normal Mental Status: mental status grossly normal Speech and movement: Normal speech and movement present Affect: normal affect Attitude: cooperative Thought process: Normal thought process present Thought content: Normal thought content present Insight: Good insight present (Psych) Judgement: Good judgement present (Psych) Results Reviewed Results Reviewed: ABDOMINAL ULTRASOUND Findings: Gallbladder unremarkable, no stone formation or wall thickening. Common duct measures 3 mm. No sonographic Cruz sign. Fatty infiltration of the liver without focal abnormality. Main portal vein patent with normal direction of flow. Pancreas is unremarkable. Aorta and IVC patent and normal in caliber. The right kidney is normal, 10.6 cm in length. No focal abnormality or hydronephrosis. The left kidney is normal, 11.4 cm in length. No focal abnormality or hydronephrosis. The spleen is normal, 11.5 cm in length. No focal abnormality. Impression: Fatty infiltration of the liver, otherwise unremarkable Laboratory Tests 10/08/24 10/13/24 12:15 15:33 Haptoglobin 54 Total Bilirubin 1.6 H Direct Bilirubin 0.4 AST 25 ALT 53 H Lactate Dehydrogenase 132 C-Reactive Protein < 0.04 Tiss Transglutamin IgG <1.0 Tiss Transglutamin IgA <1.0 Assessment & Plan Assessment & Plan (1) Elevated bilirubin: Code(s): R17 - Unspecified jaundice Category: Medical (2) Irritable bowel syndrome with diarrhea: Code(s): K58.0 - Irritable bowel syndrome with diarrhea Category: Medical (3) Postprandial abdominal bloating: Code(s): R14.0 - Abdominal distension (gaseous) (4) Postprandial diarrhea: Code(s): K52.9 - Noninfective gastroenteritis and colitis, unspecified Plan Discussed with patient avoiding dietary triggers. Low FODMAP diet recommended. List of food recommended as well as list of food to avoid given to patient. In the past he did have a negative CRP. Patient will repeat that again and we will send him to get fecal calprotectin. Will check thyroid, lipase vitamin B12, folate, vitamin D level. Patient will return in 3 months, sooner on as needed basis. He is agreeable to this plan and verbalizes understanding of instructions. He was given the opportunity to ask questions and all questions answered. Thank you for allowing me to participate in his care Orders: Orders Vitamin D 25-OH (D2 and D3) 02/15/25 E55.9 - Vitamin D deficiency, unspecified Transglutaminase IgA 02/15/25 R10.9 - Unspecified abdominal pain Calprotectin, Fecal 02/15/25 R15.9 - Full incontinence of feces C Reactive Protein 02/15/25 K58.9 - Irritable bowel syndrome, unspecified TSH reflex Free T4 02/15/25 K59.00 - Constipation, unspecified Lipase 02/15/25 R10.9 - Unspecified abdominal pain Vitamin B12 and Folate 02/15/25 R19.7 - Diarrhea, unspecified Coding Level of Care Code New Pt Level 4 (23285) Diagnoses Elevated bilirubin R17 Irritable bowel syndrome with diarrhea K58.0 Postprandial abdominal bloating R14.0 Postprandial diarrhea K52.9 Time Spent (min) 50 Comment 35 minutes spent with patient and additional 15 minutes spent reviewing his records
[2025-02-15 13:52] VITALS: BP 128/66; PULSE 72; O2SAT 98; BMI 22.5
== END 2025-02-15 14:29 | disposition home or self-care (01) ==
LOC: HO.HGI 13:39
PROVIDERS: PCP Nurse Practitioner Family; Visit Provider Nurse Practitioner Family
DX: R17 Unspecified jaundice (principal); K58.0 Irritable bowel syndrome with diarrhea; R14.0 Abdominal distension (gaseous)
CPT/HCPCS: 99204

== ENCOUNTER → 2025-02-15 13:38 | Outpatient (BNVA) | payer OTHER, SELFPAY | PROVIDERS: PCP Nurse Practitioner Family; Visit Provider Nurse Practitioner Family | DX: K58.0 Irritable bowel syndrome with diarrhea (principal); K52.9 Noninfective gastroenteritis and colitis, unspecified; R17 Unspecified jaundice; R14.0 Abdominal distension (gaseous) | CPT/HCPCS: 99202 ==

== ENCOUNTER 2025-04-19 08:09 | Outpatient (AMB) | payer OTHER, SELFPAY ==
--- NOTE | 2025-04-19 08:16 | MHC.OFFWIV ---
Intake Vital Signs 04/19/25 08:17 Height 6 ft 4 in Weight 188 lb BMI 22.9 BP 110/68 Blood Pressure Location Lt brachial Position Sitting Pulse 64 Pulse Source Pulse Oximeter Temp 98.8 F Temp Source Oral Pulse Oximetry (%) 99 Oxygen Delivery Method Room Air Intake Visit Reasons: EP Frank hendersonsiddhartha, rt Patient Tobacco Use Status: Former Tobacco user Allergies gluten Adverse Reaction (Mild, Verified 04/19/25 08:17) Diarrhea HPI HPI Comments History of Present Illness Details History of Present Illness - The patient is a 40-year-old male presenting with persistent right elbow pain. - The pain began after shoveling soil four months ago, affecting both elbows initially, with the right elbow remaining symptomatic. - The patient experiences tenderness and pain with specific movements, and has been using ibuprofen with minimal relief. - No imaging or specialist evaluations have been performed to date. - He has been trying tylenol, motrin and ice with no relief. - He has pain with touching the lateral aspect and with extension. - He denies upper arm pain, wrist pain, hand pain, numbness, or tingling. Physical Exam General: Cooperative, healthy appearing, comfortable, no acute distress and well developed Orientation: Patient oriented x3 Respiratory: Normal respiratory effort and able to speak in complete sentences. Clear to auscultation bilaterally Cardiovascular: Regular rate and rhythm. Normal S1 and S2. No m/r/g noted. Pulses are 2+ on the UE. Skin: No rashes or lesions noted Neuro: Sensation is intact Extremities: FROM of the right elbow. No deformity noted. No swelling, erythema or warmth noted. TTP of the lateral epicondyle. No TTP of the olecranon or medial epicondyle. Supination and pronation is intact. FROM of the right wrist. 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 Patient was informed and verbally consented to the use of an ambient scribe for clinic note documentation during this visit. [facility] Medical History Gluten intolerance Surgical History H/O colonoscopy History of testicular surgery History of surgery on lower extremity History of nasal surgery H/O vasectomy H/O nasal septoplasty H/O wisdom tooth extraction Family History Father Lung cancer HTN (hypertension) Mother No problems noted. Social History Housing: Apartment Comment: stinging Patient Tobacco Use Status: Former Tobacco user Tobacco use type: Cigarette Years Smoked: 10 e-Cigarette/Vaping Use: Never Used Second Hand Smoke Exposure: No service: Yes Current occupational status: employed Current occupation: [employer] Current occupational exposures/hazards: Yes Cognitive needs: No Hearing needs: No Vision needs: No Review of Systems Const All systems reviewed & are unremarkable except as noted in HPI and below Physical Exam Vital Signs: Last Vital Signs Temp 98.8 F 04/19/25 08:17 Pulse 64 04/19/25 08:17 BP 110/68 04/19/25 08:17 Pulse Ox 99 04/19/25 08:17 Oxygen Delivery Method Room Air 04/19/25 08:17 BMI result Body Mass Index 22.9 Assessment & Plan Assessment & Plan (1) Right elbow pain: Code(s): M25.521 - Pain in right elbow Plan Most likely Lateral Epicondylitis (Tennis Elbow) vs bursitis vs arthritis Plan: - Obtain an x-ray to rule out any underlying bony abnormalities. - Referral: Refer to orthopedics for further evaluation and management. - Management: Consideration for a brace or injection if symptoms persist. - tylenol or motrin as needed - rest, ice, and elevation - follow up with PCP Orders: Orders XR elbow RT min 3V Today M25.521 - Pain in right elbow Referrals Orthopedics Referral M25.521 - Pain in right elbow Medications: New arm brace (Elbow Compression Sleeve) As directed 1 ea 0RF Coding Level of Care Code Est Pt Level 4 (13890) Diagnoses Right elbow pain M25.521
[2025-04-19 08:17] VITALS: BP 110/68; PULSE 64; TEMP 37.1; O2SAT 99; BMI 22.9
== END 2025-04-19 08:54 | disposition home or self-care (01) ==
PROVIDERS: PCP Nurse Practitioner Family; Visit Provider Physician Assistant Medical
DX: M25.521 Pain in right elbow (principal)

== ENCOUNTER 2025-04-19 08:09 | Outpatient (REF) | payer OTHER, SELFPAY ==
--- NOTE | ~2025-04-19 | XR_ITS ---
EXAMINATION: XR ELBOW, RIGHT CLINICAL INFORMATION: M25.521 - Pain in right elbow COMPARISON: None available. TECHNIQUE: AP, lateral, and oblique views of the right elbow. FINDINGS: No acute cortical disruption or malalignment. There is a 3 mm linear calcification in the soft tissues of the anterior joint space just above the coronoid process of the ulna. No subcutaneous emphysema. No lytic or blastic lesions. XR/XR elbow RT min 3V IMPRESSION: No acute fracture or dislocation. Questionable prior trauma to the coronoid processes of the ulna. Electronically signed by: Dipesh Perez MD 04/19/2025 08:52 AM EDT
[2025-04-19 11:38] LABS: Folate 4.7 ng/mL (> or = 4.0); Vitamin B12 409 pg/mL (200-900)
[2025-04-19 12:59] LABS: Lipase 27 U/L (8-78)
[2025-04-20 23:03] LABS: Immunoglobulin A 276 mg/dL (47-310)
[2025-04-25 16:59] LABS: Vitamin D 25-OH, D2 <4 ng/mL; Vitamin D 25-OH, D3 22 ng/mL; Vitamin D 25-OH, Total 22 ng/mL (30-100)
[2025-04-26 07:29] LABS: Class Almond 0; Class Alternaria alternata 0; Class Aspergillus fumigatus 0; Class Bermuda Grass 0; Class Birch 2; Class Brazil Nut 0; Class Cashew 0; Class Cat Dander 0/1; Class Cladosporium herbarum 0; Class Cockroach 0; Class Codfish 0; Class Common Ragweed 0; Class Cottonwood 0; Class Cow's Milk 0; Class Derm. pterony 2; Class Dermatophagoides farinae 2; Class Dog Dander 0/1; Class Egg white 0; Class Elm 0; Class Hazelnut 0/1; Class Macadamia Nut 0; Class Maple Box Elder 0; Class Mountain Cedar 0; Class Mouse Urine Protein 0; Class Mugwort 0; Class Oak 0/1; Class Peanut 0; Class Penicillium crysogenum 0; Class Rough Pigweed 0; Class Salmon 0; Class Scallop 0; Class Sesame Seed 0; Class Sheep Sorrel 0; Class Shrimp 0; Class Soybean 0; Class Sycamore 0; Class Timothy Grass 0; Class Tuna 0; Class Walnut 0; Class Walnut Tree 0; Class Wheat 0; Class White Ash 0; Class White Mulberry 0; D002 - IgE D farinae 2.91 kU/L; E001 - IgE Cat Dander 0.20 kU/L; E005 - IgE Dog Dander 0.15 kU/L; F345-IgE Macadmia Nut <0.10 kU/L; G006 - IgE Timothy Grass <0.10 kU/L; I006-IgE Cockroach, German <0.10 kU/L; M002 - IgE Cladosporium herbar <0.10 kU/L; M003 - IgE Aspergillus fumigat <0.10 kU/L; M006 - IgE Alternaria alternat <0.10 kU/L; T001 IgE Maple/Box Elder <0.10 kU/L; T006 - IgE Cedar, Mountain <0.10 kU/L; T007 - IgE Oak, White 0.14 kU/L; T008 IgE Elm, American <0.10 kU/L; T010 - IgE Walnut <0.10 kU/L; T011 - IgE Maple Leaf Sycamore <0.10 kU/L; T014 - IgE Cottonwood <0.10 kU/L; T015 - IgE Ash, White <0.10 kU/L; T070 - IgE White Mulberry <0.10 kU/L; W001 - IgE Ragweed, Short <0.10 kU/L; W006 - IgE Mugwort <0.10 kU/L; W014 IgE Pigweed, Common <0.10 kU/L; W018 IgE Sheep Sorrel <0.10 kU/L
== END 2025-04-19 08:10 | disposition home or self-care (01) ==
LOC: HO.HMGCX 08:09
PROVIDERS: PCP Nurse Practitioner Family; Referring Provider Nurse Practitioner Family; Visit Provider Physician Assistant Medical
DX: M25.521 Pain in right elbow (principal); E55.9 Vitamin D deficiency, unspecified; K58.9 Irritable bowel syndrome, unspecified; K59.00 Constipation, unspecified; R10.9 Unspecified abdominal pain; R19.7 Diarrhea, unspecified; Z01.84 Encounter for antibody response examination
CPT/HCPCS: 36415; 73080; 82306; 82607; 82746; 82784; 82785; 83690; 84443; 86003; 86140; 86364; 99212

== ENCOUNTER → 2025-04-19 08:38 | Outpatient (BNV) | payer OTHER, SELFPAY | PROVIDERS: PCP Nurse Practitioner Family; Referring Provider Nurse Practitioner Family; Visit Provider Radiology Diagnostic Radiology | DX: M25.521 Pain in right elbow (principal) | CPT/HCPCS: 73080 ==

== ENCOUNTER 2025-05-17 06:56 | Outpatient (AMB) | payer OTHER, SELFPAY ==
--- NOTE | 2025-05-17 07:14 | A.OFFPC_ITS ---
Intake Visit Reasons: Discuss ADHD Allergies gluten Adverse Reaction (Mild, Verified 05/17/25 07:19) Diarrhea Medication List - Last Reconciled 05/17/25 by KARIS Landeros- arm brace (Elbow Compression Sleeve) As directed Tobacco use date assessed: 12/15/24 Dental Screening Dental Screen Date: 12/15/24 HPI Discuss ADHD HPI Details History of Present Illness The patient is a 40-year-old male presenting with symptoms suggestive of Attent ion Deficit Hyperactivity Disorder (ADHD). 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 The patient describes an inability to concentrate on a subject for more than five minutes, especially if it does not interest him, leading to frequent task switching. Although he was never officially diagnosed with ADHD or ADD during childhood, it was always assumed to be the case. Review of Systems - Neurological: Reports lack of focus an d easy distractibility. Denies dizziness or blurred vision. - Psychiatric: Denies suicidal ideation or homicidal ideation. Plan 1. Attention Deficit Hyperactivity Disor tea (Adhd) The patient will be referred to a psychiatric provider for further evaluation and initiation of treatment for ADHD. The plan is to avoid stimulant medications, and management will be continued by the current provider after initial psychiatric evaluation. Discussion Notes I discussed with the patient the plan to refer him to a psychiatric provider for further evaluation of his symptoms suggestive of ADHD. We agreed to avoid stimulant medications and to continue management after the initial psychiatric evaluation. Patient Instructions - Follow up with the psychiatric provide r as scheduled for further evaluation and treatment initiation. - Avoid stimulant medications unless spe cifically advised by the healthcare provider. [facility] Medical History Gluten intolerance Surgical History H/O colonoscopy History of testicular surgery History of surgery on lower extremity History of nasal surgery H/O vasectomy H/O nasal septoplasty H/O wisdom tooth extraction Family History Father Lung cancer HTN (hypertension) Mother No problems noted. Social History Housing: Apartment Comment: stinging Patient Tobacco Use Status: Former Tobacco user Tobacco use type: Cigarette Years Smoked: 10 e-Cigarette/Vaping Use: Never Used Second Hand Smoke Exposure: No service: Yes Current occupational status: employed Current occupation: [employer] Current occupational exposures/hazards: Yes Cognitive needs: No Hearing needs: No Vision needs: No Questionnaire Thrive Questionnaire Date Thrive assessed: 12/15/24 I am a: Patient What is your living situation today?: I have a steady place to live Within the past 12 months, did the food you bought not last and you didn't have the money to get more?: Never true Within the past 12 months, did you worry whether your food would run out before you got money to buy more?: Never true Do you have trouble paying for medicines?: No Do you have trouble getting transportation to medical appointments?: No Do you have trouble paying your heating and electricity bill?: No Do you have trouble taking care of your child, family member or friend?: No Do you have trouble with day-to-day activities such as bathing, preparing meals, shopping, managing finances, etc.?: No Are you currently unemployed and looking for a job?: No Are you interested in more education?: No Please select the resources that you would like help with: None Currently or been in a relationship where the following occur: No concerns reported THRIVE Score: 0 NANCI-7 AMB Questionnaire NANCI-7 Date NANCI - 7 assessed: 12/15/24 Source: Developed by Drs. Narinder Issa, Deloris Cheung, Gilmer Deng and colleagues, with an educational adelfo from [employer]. Physical exam (Primary Care) Tobacco/Smoking Status: Tobacco use Status Tobacco use date assessed 12/15/24 05/17/25 07:16 Patient Tobacco Use Status Former Tobacco user 05/17/25 07:16 Tobacco use type Cigarette 05/17/25 07:16 e-Cigarette/Vaping Use Never Used 05/17/25 07:16 Thrive Assessment: Date of Thrive Assessment Date Thrive assessed 12/15/24 05/17/25 07:16 Currently or been in a relationship where the following occur: No concerns reported Telehealth Telehealth Telehealth Platform: [facility] Location of provider rendering services: practice address Location of patient: address on file Patient Identification confirmed using: Name, : Yes Telehealth method: video Patient verbally consented to treatment: Yes Patient verbally consented to billing insurance company: Yes Patient informed of any privacy concerns related to visit: Yes Minutes spent on Phone/Video with Pt.: 13 Coding Level of Care Code Tele Est Pt Level 3 (16975) Diagnoses Easily distractable on examination R41.840 Assessment & Plan Assessment & Plan (1) Easily distractable on examination: Code(s): R41.840 - Attention and concentration deficit Category: Medical Plan . Orders: Referrals Psychiatry Outpatient Consultation Service R41.840 - Attention and c oncentration deficit
== END 2025-05-17 10:17 | disposition home or self-care (01) ==
LOC: HO.HMCC 06:57
PROVIDERS: PCP Nurse Practitioner Family; Visit Provider Nurse Practitioner Family
DX: R41.840 Attention and concentration deficit (principal)

== ENCOUNTER 2025-05-24 12:33 | Outpatient (AMB) | payer OTHER, SELFPAY ==
--- NOTE | 2025-05-24 13:49 | MHC.OFFVISPS ---
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 He also reports that when in a group of people his mind will wander and he can miss important information that is being talked about. He also has troouble with recall when put on the spot in a group. He will know the information being asked for but will experience difficulty coming up with the words to expplain or responf verbally to questions. He also reports hyperfixating on things he finds iinteresting . At work he gives the example of having 18 emails open at the same time and responding to them in a less efficient way than approaching one email at a time. He can be easily distracted if a co-worker comes by to chat. He will have trouble getting back to the project he was working on when interrupted. Pt reports that at work if the issue at hand is improtant or a life/ situation he performs at a higher level more easily problem solving and answering questions more easily and quickly; most of his difficulty is with task that are mundae or tedious such as getting paperwork done. Pt reports at home he will get interested in a hobby and be obsessive about it only to lose interest after a while for example skiing - spending a lot of money on all the equipment and then using it for one season until he has not interest in continuing it. He reports he can be impulsive with purchases such as a 300$ new coffee machine. Pt reports that whenhe was young he had similar issues but coped well overall; He reports he nathanael the bare minimum in school because he wasn't that interested; He was more interested in being outdoors, bicycling, being with friends; He thinks that he ay have been on meds before the age of 10 but does not recall details. He did graduate from [employer] He went on to take classes at [facility] [employer] and in the ; He has been in the for 18 years and thrives with the structure. Pt completed the ASRS.v1-1, the Adult ADHD Self Report scale. He finished the scale and said he probably under rated some of the items; he reports he feels embarrassed about some of the traits. He scored 4 out of 6 of the core ADHD symptoms and 8 out of 12 . Given his histroy, symptoms and score on the ASRS he meets the criteria for ADHD combined type. He also describes some anxiety but it appears that its secondary to worrying about his recall and focus. Past Psychiatric History: none Subjective Subjective Review of Systems Medical Review of Systems: unchanged Mental Status Exam Mental Status Exam Patient Appearance: Well Grooomed and Appropriate Patient Orientation: Person, Place, Time and Situation Level of Consciousness: Awake, Appropriate and Alert Patient Behavior: Appropriate, Talkative, Cooperative, Restless (minimally fidgety), Anxious (mild) and Good Eye Contact Mood Description: Appropriate and Nervous (slightly) Affect Description: Appropriate and Nervous (slightly) Patient Cognition Impaired: No Ability to Follow Directions: Good Speech Pattern: Clear, Appropriate, Spontaneous Speech and Excessive Memory Description: Intact and Working Impaired (difficulty under pressure) Hallucinations: None Delusions: Not Present Thought Process: Intact and Goal Oriented Thought Content: positive for Intact and positive for Goal Oriented Judgement: Good Assessment and Plan Assessment & Plan (1) ADHD (attention deficit hyperactivity disorder), combined type: Status: Acute Code(s): F90.2 - Attention-deficit hyperactivity disorder, combined type Plan discussed options for treatment will start with trial of strattera 25mg daily x 3 days then increase to 50mg daily stay hydrated stop if mood worsens or any SI/HI return in 6weeks Medications: New atomoxetine (2 x 25 mg) 50 mg orally Take one daily x 3 days then take 2 daily thereafter; 30 caps 0RF atomoxetine 25 mg orally Take one daily x 3 days then take 2 daily thereafter; 30 caps 0RF Counseling and coordination of Care Pt. Self Management counseling: Maintenance-social rhythm, Mod caffeine/ETOH intake, Nutrition education and improvement, Sleep hygiene and Problem solving Medication management counseling: Effectiveness, Side effects, Dosing range, Duration, Drug interaction and Adherence Diagnosis and Prognosis Counseling: Accuracy of diagnosis, Prognosis over time, Impact of diagnosis on life functions, Impact of family relationship, Problematic behaviors secondary to diagnosis and Adequacy of current interventions Details: I spent 90 minutes reviewing the record, seeing the patient and documenting in the medical record. Counseling provided to the patient/caregiver as outlined below. Addressed patient/caregiver concerns regarding current medication regime including effective adherence. Addressed patient/caregiver concerns regarding diagnosis and prognosis including accuracy of diagnosis, prognosis over time, impact of diagnosis. Addressed patient/caregiver concerns regarding impact of recent stressors. PFSH Medical History Gluten intolerance Surgical History H/O colonoscopy History of testicular surgery History of surgery on lower extremity History of nasal surgery H/O vasectomy H/O nasal septoplasty H/O wisdom tooth extraction Family History Father Lung cancer HTN (hypertension) Mother No problems noted. Social History Housing: Apartment Comment: stinging Patient Tobacco Use Status: Former Tobacco user Tobacco use type: Cigarette Years Smoked: 10 e-Cigarette/Vaping Use: Never Used Second Hand Smoke Exposure: No service: Yes Current occupational status: employed Current occupation: [employer] Current occupational exposures/hazards: Yes Cognitive needs: No Hearing needs: No Vision needs: No Social History: lives with LT partner and 15 yr old son. Pt has 13 yr old daughter who lives with her mother and visits on weekend and smith. 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 No ETOH x 1 yr due to GI issues (IBS) No recreational or illicit drug use Trauma History: none known. 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
== END 2025-05-24 14:23 | disposition home or self-care (01) ==
LOC: HO.HOP 12:33
PROVIDERS: PCP Nurse Practitioner Family; Visit Provider Clinical Nurse Specialist Psychiatric/Mental Health
DX: F90.2 Attention-deficit hyperactivity disorder, combined type (principal)
CPT/HCPCS: 90792

== ENCOUNTER → 2025-05-24 12:33 | Outpatient (BNVA) | payer OTHER, SELFPAY | PROVIDERS: PCP Nurse Practitioner Family; Visit Provider Clinical Nurse Specialist Psychiatric/Mental Health | DX: F90.2 Attention-deficit hyperactivity disorder, combined type (principal) | CPT/HCPCS: 90792 ==

== ENCOUNTER 2025-06-20 14:51 | Outpatient (AMB) | payer OTHER, SELFPAY ==
--- NOTE | 2025-06-20 15:51 | MHC.OFFVISPS ---
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 He denies side effects. PHQ9= 0 and GAD7=1. There are improvements on his Adult ADHD Scale. On questions 1,2,and 3 his scored improved from very often to often, sometimes, and often respectively. On question 4 and 5 the answers were the same as first appt. On question 6, there is improvement also from very often to often. History: Pt reports that when he was young he had similar issues but coped well overall; He reports he nathanael the bare minimum in school because he wasn't that interested; He was more interested in being outdoors, bicycling, being with friends; He thinks that he ay have been on meds before the age of 10 but does not recall details. He did graduate from [employer]. He went on to take classes at [facility] [employer] and in the ; He has been in the for 18 years and thrives with the structure. Pt completed the ASRS.v1-1, the Adult ADHD Self Report scale. He finished the scale and said he probably under rated some of the items; he reports he feels embarrassed about some of the traits. He scored 4 out of 6 of the core ADHD symptoms and 8 out of 12 . Given his histroy, symptoms and score on the ASRS he meets the criteria for ADHD combined type. He also describes some anxiety but it appears that its secondary to worrying about his recall and focus. Past Psychiatric History: none Subjective Subjective Review of Systems Medical Review of Systems: unchanged Mental Status Exam Mental Status Exam Patient Appearance: Well Grooomed and Appropriate Patient Orientation: Person, Place, Time and Situation Level of Consciousness: Awake, Appropriate and Alert Patient Behavior: Appropriate, Talkative, Cooperative, Anxious (mild) and Good Eye Contact Mood Description: Appropriate, Cheerful and Anxious Affect Description: Appropriate and Cheerful Patient Cognition Impaired: No Ability to Follow Directions: Good Speech Pattern: Clear, Appropriate and Spontaneous Speech Memory Description: Intact and Working Impaired (difficulty under pressure) Hallucinations: None Delusions: Not Present Thought Process: Intact and Goal Oriented Thought Content: positive for Intact and positive for Goal Oriented Judgement: Good Assessment and Plan Assessment & Plan (1) ADHD (attention deficit hyperactivity disorder), combined type: Status: Acute Code(s): F90.2 - Attention-deficit hyperactivity disorder, combined type Plan Increase strattera to 80mg daily stay hydrated stop if mood worsens or any SI/HI return in 8 weeks Medications: New atomoxetine 80 mg PO DAILY 90 caps 0RF Discontinued atomoxetine Discontinued Reason: Doctor's Order 50 mg (2 x 25 mg) PO DAILY 60 caps 1RF Counseling and coordination of Care Pt. Self Management counseling: Maintenance-social rhythm, Mod caffeine/ETOH intake, Nutrition education and improvement, Sleep hygiene and Problem solving Medication management counseling: Effectiveness, Side effects, Dosing range, Duration, Drug interaction and Adherence Diagnosis and Prognosis Counseling: Accuracy of diagnosis, Prognosis over time, Impact of diagnosis on life functions, Impact of family relationship, Problematic behaviors secondary to diagnosis and Adequacy of current interventions Details: I spent 35 minutes reviewing the record, seeing the patient and documenting in the medical record. Counseling provided to the patient/caregiver as outlined below. Addressed patient/caregiver concerns regarding current medication regime including effective adherence. Addressed patient/caregiver concerns regarding diagnosis and prognosis including accuracy of diagnosis, prognosis over time, impact of diagnosis. Addressed patient/caregiver concerns regarding impact of recent stressors. [facility] Medical History Gluten intolerance Surgical History H/O colonoscopy History of testicular surgery History of surgery on lower extremity History of nasal surgery H/O vasectomy H/O nasal septoplasty H/O wisdom tooth extraction Family History Father Lung cancer HTN (hypertension) Mother No problems noted. Social History Housing: Apartment Comment: stinging Patient Tobacco Use Status: Former Tobacco user Tobacco use type: Cigarette Years Smoked: 10 e-Cigarette/Vaping Use: Never Used Second Hand Smoke Exposure: No service: Yes Current occupational status: employed Current occupation: [email or web address] Current occupational exposures/hazards: Yes Cognitive needs: No Hearing needs: No Vision needs: No Social History: lives with LT partner and 15 yr old son. Pt has 13 yr old daughter who lives with her mother and visits on weekend and smith. 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 No ETOH x 1 yr due to GI issues (IBS) No recreational or illicit drug use Trauma History: none known. 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
== END 2025-06-20 17:02 | disposition home or self-care (01) ==
LOC: HO.HOP 14:51
PROVIDERS: PCP Nurse Practitioner Family; Visit Provider Clinical Nurse Specialist Psychiatric/Mental Health
DX: F90.2 Attention-deficit hyperactivity disorder, combined type (principal)
CPT/HCPCS: 99214

== ENCOUNTER → 2025-06-20 14:51 | Outpatient (BNVA) | payer OTHER, SELFPAY | PROVIDERS: PCP Nurse Practitioner Family; Visit Provider Clinical Nurse Specialist Psychiatric/Mental Health | DX: F90.2 Attention-deficit hyperactivity disorder, combined type (principal); Z91.85 Personal history of military service | CPT/HCPCS: 99212 ==